=== PATIENT | female | born 1975 | race Caucasian/White ===

== ENCOUNTER → 2017-09-15 10:52 | Outpatient (CLI) | payer OTHER, SELFPAY ==
[2017-09-28 13:29] LABS: HPV Reflexed? NOT INDICATED
== END ==
PROVIDERS: Visit Provider Obstetrics & Gynecology
DX: Z12.4 Encounter for screening for malignant neoplasm of cervix (principal)
CPT/HCPCS: 88175; G0145

== ENCOUNTER 2018-02-13 19:56 | Emergency (ER) | payer OTHER, SELFPAY ==
[2018-02-13 19:58] VITALS: BP 155/91; PULSE 127; RESP 18; TEMP 36.6; O2SAT 95; BMI 26.6
--- NOTE | 2018-02-13 20:30 | RAD_ITS ---
STUDY: X-RAY - PELVIS AND RIGHT HIP REASON FOR EXAM: Female, 42 years old. Pain TECHNIQUE: Radiological exam, hip, unilateral, with pelvis when performed; 2 or 3 views. COMPARISON: None. FINDINGS: There is a non-specific bowel gas pattern. Normal visualized soft tissue structures. Normal bilateral iliac wings, sacroiliac joints and visualized sacrum. Normal bilateral superior and inferior pubic rami. Normal pubic symphysis. Normal bilateral ischial tuberosities. Normal visualized femoral head. Normal acetabulum. Normal hip joint. RAD/HIP, UNI W/ Pelvis 2-3 Views IMPRESSION: Normal x-ray examination of the pelvis and right hip. Electronically Signed: Jose Alfredo Navarro, at 20:59 EDT Tel , Service support ,
--- NOTE | 2018-02-13 21:12 | ED.VISSUMM ---
- ER Visit Summary Date of Service: 02/13/18 Chief Complaint: Right hip pain History of Present Illness: The patient is a 42 F who states for 2 weeks she has had pain in the right hip. Nothing is different about it today but she wanted to come to the emergency room for evaluation. She has not contacted her doctor about this. She states that she is an alcoholic therefore you must take care of me. She denies any fevers. No IV drug use. She denies any known trauma. No redness or rash over the hip. Physical Examination: Patient is afebrile her vital signs show tachycardia in triage at 127 however on my examination in the bed her heart rate is 82 Gen: Well-nourished well-developed Head: Normocephalic atraumatic Eyes: Perrl EOMI ENT: TMs clear no rhinorrhea moist mucous membranes Neck: Supple no lymphadenopathy no JVD nontender CVS: Regular rate rhythm no murmurs normal S1-S2 Respiratory: No distress clear to auscultation bilaterally chest nontender Abdomen: Soft nontender nondistended normal bowel sounds no masses Back: Nontender Extremity: Tender to palpation over the right greater trochanter. There is no rash or erythema. Negative logroll. She is able to flex and extend her hip. Skin: Normal color no rash no goosebumps/. Neuro: alert orientated ?3 CN II-XII intact normal strength sensation reflexes gait cerebellar Psych: Patient has an inappropriate affect laughing at times Test Results: X-rays of the hip and pelvis were negative for fracture Emergency Department Course and Treatment: Patient was given Toradol. We will start her on ibuprofen. I believe this is a bursitis. She is not improving with ice and anti-inflammatories and conservative treatment she will need to follow-up. She states that she would like to be admitted because she is an alcoholic and would like to be detoxed. She scored a 10 on the CIWA form. And that was for subjective findings. There are no physical exam findings of alcohol withdrawal at the current time. Patient was advised she should call [facility] tomorrow. Impression: 1. Right greater trochanteric bursitis 2. Alcoholism This note was generated with [employer] dictation software. It may contain incorrect words, spelling, and punctuation that were not noted in review of the chart prior to signing ED Disposition - Plan for ED Patient: Disposition: Home or Assisted Living Chief Complaint: Lower Extremity Injury Instructions: ED Bursitis Prescriptions: Ibuprofen [Motrin] 800 mg PO TID #20 tab Referrals: Lawrence Lorenzo MD [Primary Care Provider] - 1 Week if not improving
[2018-02-13] MEDS: Ketorolac 10 MG Tablet PO (21:17)
[2018-02-13 21:49] VITALS: BP 132/86; PULSE 88; RESP 16; O2SAT 98
== END 2018-02-13 21:53 | disposition home or self-care (01) ==
PROVIDERS: Emergency Provider Emergency Medicine; Family Provider Family Medicine; PCP Family Medicine
DX: M70.61 Trochanteric bursitis, right hip (principal); F10.20 Alcohol dependence, uncomplicated; Y90.9 Presence of alcohol in blood, level not specified; Z72.0 Tobacco use; F32.9 Major depressive disorder, single episode, unspecified
CPT/HCPCS: 73502; 99283

== ENCOUNTER → 2018-03-26 16:33 | Outpatient (CLI) | payer OTHER, SELFPAY ==
[2018-03-26 18:44] LABS: Progesterone Level 0.22 ng/mL (See Comment)
[2018-03-26 18:58] LABS: Pregnancy, Serum, hCG Quali. NEGATIVE Negative (0-9 Nonpreg)
--- OUTSIDE RECORDS SUMMARY | 2018-05-13 01:48 | XMS RPT_ITS ---
:1975 Author Organization OHIP Care Team Providers Name Role Phone Nancy Dotson Attending Unavailable Jose Pepper Attending Unavailable Lawrence Lorenzo Primary [facility] Unavailable Nancy Dotson Attending Unavailable RUBEN LORENZO) Attending Unavailable RUBEN LORENZO) Referring Unavailable RUBEN LORENZO) Referring Unavailable RUBEN LORENZO) Referring Unavailable TRUPTI, MEGHAN (KATHLEEN) Attending Unavailable RUBEN LORENZO) Referring Unavailable RUTTI, MEGHAN (KATHLEEN) Referring Unavailable RUTTI, MEGHAN (KATHLEEN) Referring Unavailable RUBEN LORENZO) Attending Unavailable TRUPTI, MEGHAN (KATHLEEN) Referring Unavailable PODLOGARTRINI) Attending Unavailable RUTTI, MEGHAN (ACID PUMPER) Referring Unavailable ANDRÉS, LAPMAN Attending Unavailable RUTTI, MEGHAN (ACID PUMPER) Referring Unavailable ANDRÉS, LAPMAN Referring Unavailable ANDRÉS, LAPMAN Referring Unavailable PODLOGTRINI HOUGH) Attending Unavailable RUBEN LORENZO) Referring Unavailable PODLOGTRINI HOUGH (KATHLEEN) Referring Unavailable KRISTIAN HILLMAN Attending Unavailable TRINI DOWNS) Referring Unavailable KRISTIAN HILLMAN Referring Unavailable RUBEN LORENZO) Attending Unavailable RUBEN LORENZO) Referring Unavailable RUBEN LORENZO) Referring Unavailable RUBEN LORENZO () Referring Unavailable PODLOGAR, TRINI (KATHLEEN) Referring Unavailable PODLOGAR, TRINI (KATHLEEN) Attending Unavailable RUBEN LORENZO () Referring Unavailable PODLOGAR, TRINI (KATHLEEN) Referring Unavailable KRISTIAN HILLMAN Referring Unavailable KRISTIAN HILLMAN Attending Unavailable KRISTIAN HILLMAN Referring Unavailable RUBEN LORENZO () Attending Unavailable RUBEN LORENZO) Referring Unavailable PODLOGAR, TRINI (KATHLEEN) Attending Unavailable RUBEN LORENZO) Referring Unavailable [place] Consulting Unavailable PROBLEMS PROBLEMS DATE TYPE CONDITION / CODE ATTENDING STATUS SOURCE 02/22/2018 Admitting Unknown / NA Active [facility] diagnosis UNK(Unknown) Hospital Repository 02/07/2018 Active Other abnormal and NA Active [facility] inconclusive [facility] Main findings on [place] diagnostic imaging Repository of breast / R92.8(ICD-10) 01/17/2018 Active Encounter for NA Active [place] screening [facility] Main mammogram for [place] malignant neoplasm Repository of breast / Z12.31(ICD-10) 01/02/2018 Active Unspecified NA Active [place] cirrhosis of liver Clinic Main / K74.60(ICD-10) [place] Repository 10/09/2017 Active Alcohol JENNIFER BOWEN Active [place] dependence, in Clinic Main remission / [place] F10.21(ICD-10) Repository 10/09/2017 Active Hepatomegaly with TOI BOWENMAN Active [place] splenomegaly, not Clinic Main elsewhere [place] classified / Repository R16.2(ICD-10) 11/17/2017 Active Alcoholic JENNIFER BOWEN Active [place] cirrhosis of liver Clinic Main without ascites / [place] K70.30(ICD-10) Repository 07/05/2017 Active Other pancytopenia NA Active [facility] / D61.818(ICD-10) Clinic Main [place] Repository 09/21/2017 Active Thrombocytopenia, NA Active [facility] unspecified / Clinic Main D69.6(ICD-10) [place] Repository 09/21/2017 Active Anemia, NA Active [facility] unspecified / Clinic Main D64.9(ICD-10) [place] Repository 09/15/2017 Unknown Z12.4 - Encounter Nancy Dotson Active [place] for screening for [facility] neoplasm [facility] of cervix / Repository Z12.4(ICD-10) 07/04/2017 Active Epistaxis / NA Active [facility] R04.0(ICD-10) Clinic Main [place] Repository 06/05/2017 Active Disorder of urea NA Active [place] cycle metabolism, [facility] Main unspecified / [place] E72.20(ICD-10) Repository 06/05/2017 Active Type 2 diabetes NA Active [place] mellitus without Clinic Main complications / [place] E11.9(ICD-10) Repository 06/05/2017 Active Other specified NA Active [place] abnormal findings Clinic Main of blood chemistry [place] / R79.89(ICD-10) Repository 06/05/2017 Active Unknown / [facility], Active [place] UNK(Unknown) RUBEN Drake [facility] Main () [place] Repository PROCEDURES PROCEDURES No Procedure Records FoundRESULTS RESULTS PROGRESS Observed: 05/03/2018 Status: COMPLETED Source: [place] 9:12 AM [facility] REPOSITORY HNO ID: [id number] Author: Trini (Kathleen) Podlogar Service: (none) Author Type: Nurse Practitioner Type: Progress Notes Filed: 05/03/2018 9:50 AM Note Text: 05/03/2018 Patient presents with: 2 week follow up: right hip pain SUBJECTIVE: This is a 42 year old that is here today for Above Complaints. ONSET: LOCATION:right hip DURATION: constant CHARACTERISTICS: sharp pain AGGRAVATING FEATURES: By sleeping on in, putting on shoes and taking shoes off, crossing legs ALLEVIATING FEATURES: ice and heat RADIATION: none TIMING: worse as the day goes on Reports went to [place] in ER in January for this and they performed X-ray. Denies fevers, chills, swelling, redness, warmth, TTP to joints, other painful joints, Numbness, tingling, weakness in extremity, back pain, or difficulty urinating. Reviewed X-ray from [facility] dated 02/13/2018. Results below: Normal x-ray examination of the pelvis and right hip. PAST MEDICAL HISTORY Diagnosis Date - Abnormal Pap smear of cervix 2011 - Alcoholism in remission (HCC) 02/23/2018 - Anxiety - Cirrhosis of liver (HCC) Dr. Hillman - Diabetes mellitus, type II (HCC) - Elevated LFTs - Esophageal varices (HCC) - Gallstones - GERD (gastroesophageal reflux disease) - Gestational diabetes mellitus - Hepatic steatosis - Hepatosplenomegaly - Hyperammonemia (HCC) - Insomnia - Pancytopenia (HCC) 07/05/2017 Dr. Bowen - Recurrent genital herpes simplex type 1 infection diagnosed in 2013 - Thrombocytopenia (HCC) ALLERGIES Patient has no known allergies. MEDICATIONS Current Outpatient Prescriptions: lactulose (DUPHALAC, CONSTULOSE) 10 gram/15 mL solution Take 15 mL by mouth twice daily. hydrOXYzine pamoate (VISTARIL) 50 mg capsule Take 1 capsule by mouth three times daily as needed. traZODone (DESYREL) 50 mg tablet Take 1 tablet by mouth daily at bedtime. glimepiride (AMARYL) 1 mg tablet Take 1 tablet by mouth daily with breakfast. metFORMIN (GLUCOPHAGE) 500 mg tablet Take 2 tablets by mouth twice daily with meals. ranitidine (ZANTAC) 150 mg tablet Take 150 mg by mouth once daily. sodium chloride (SALINE MIST) 0.65 % nasal spray Use 1 [place] in the nose as needed. spironolactone (ALDACTONE) 50 mg tablet Take 50 mg by mouth twice daily. Melatonin 5 mg cap Take 1 capsule by mouth as needed. ondansetron orally disintegrating (ZOFRAN ODT) 4 mg disintegrating tablet Take 1 tablet by mouth every 6 hours as needed for Nausea/Vomiting. ferrous sulfate 325 mg (65 mg iron) tablet Take 1 tablet by mouth twice daily with meals. thiamine (VITAMIN B1) 100 mg tablet Take 1 tablet by mouth once daily. folic acid 1 mg tablet Take 1 tablet by mouth once daily. docusate sodium (COLACE) 100 mg capsule Take 1 capsule by mouth twice daily as needed for Constipation. sertraline (ZOLOFT) 100 mg tablet Take 1 tablet by mouth once daily. Vitamin with 29 mg Iron ( PLUS) 29 mg iron- 1 mg Take 1 tablet by mouth once daily. SUMAtriptan (IMITREX) 100 mg tablet Take 100 mg by mouth as needed. Omeprazole 40 mg capsule Take 1 capsule by mouth once daily. ibuprofen (MOTRIN) 800 mg tablet Take 800 mg by mouth every 6 hours as needed. No current facility-administered medications for this visit. Medications and allergies reviewed by this provider. SOCIAL HISTORY Social History Marital status: Spouse name: Years of education: Number of children: 2 Social History Main Topics Smoking status: Former Smoker Packs/day: 0.50 Years: 24.00 Types: Cigarettes Quit date: 05/06/2017 Smokeless tobacco: Never Used Alcohol use: No Comment: Recovering alcoholic Drug use: No Sexual activity: Yes control/protection: Injection REVIEW OF SYSTEMS All other reviewed and negative other than HPI. OBJECTIVE: BP 110/78 Pulse 88 Temp 36.2 ?C (97.1 ?F) (Tympanic) Resp 20 Wt 78.5 kg (173 lb) BMI 27.71 kg/m? . Vital signs reviewed by this provider. APPEARANCE Well appearing, alert, in no acute distress, well-hydrated, well nourished. EXTREMITIES Extremities normal, No deformities, No skin discoloration, No edema and Normal pulses bilaterally. SKIN Skin color, texture, turgor normal, no suspicious rashes or lesions Back: straight and symmetric, SI joint tenderness on right or left, Full ROM, LE ext reflexes are 2+ and symmetric Bilateral hip: without swelling, redness, loss of ROM, stiffness, injury and numbness. No TTP or warmth ROM- Range of Motion , pain with internal rotation,Gait- normal Impingement test negative. Lumbar spine: Extension: WNL Right sideglide: WNL Left sideglide: WNL Rotation: WNL Neuro: Awake, alert and oriented x 3, Reflexes symmetrical, Normal gait and No involuntary motions. ASSESSMENT/PLAN: 1. Right hip pain - ICD9: 719.45, ICD10: M25.551 - no red flag exam findings - red flag symptoms discussed, verbalizes understanding - offered PT, declines - handout on hip stretches provided - encouraged the use of heat and ice for 15 minutes at a time and to avoid sleeping on heating pad, verbalizes understanding - discussed naproxen usage for as needed bases, take with food- discussed bleeding risks with taking NSAIDS and the need to continue to avoid alcohol and other NSAID medications, verbalizes understanding - NAPROXEN 500 MG TABLET - follow-up if pain persists or worsens- recommend PT at that time- to ER with red flag symptoms Trini Podlogradha, INTERIOR DESIGN COORDINATOR.ACID PUMPER Prescription instructions reviewed with patient as applicable. Patient advised if symptoms do not improve or if symptoms worsen sooner, to contact their primary care physician. Potential red flag symptoms discussed with the patient. Reviewed appropriate action plan to take if red flag symptoms occur. Patient agreeable to treatment plan. CNOV Observed: 05/03/2018 Status: COMPLETED Source: [place] 9:00 AM [facility] REPOSITORY [facility] POLO ALVES ([id number]) 1975 F Date Time Provider Department 05/03/18 9:00 AM TRINI DOWNS (KATHLEEN) JOSHUA During your visit today, we recorded the following information about you: Temperature Pulse Respiration Blood pressure 97.1 degrees 88/minute 20/minute 110/78 Weight 78.5 kg Trini Downs APRN.KATHLEEN 05/03/2018 9:50 AM Signed 05/03/2018 Patient presents with: 2 week follow up: right hip pain SUBJECTIVE: This is a 42 year old that is here today for Above Complaints. ONSET: LOCATION:right hip DURATION: constant CHARACTERISTICS: sharp pain AGGRAVATING FEATURES: By sleeping on in, putting on shoes and taking shoes off, crossing legs ALLEVIATING FEATURES: ice and heat RADIATION: none TIMING: worse as the day goes on Reports went to [place] in ER in January for this and they performed X-ray. Denies fevers, chills, swelling, redness, warmth, TTP to joints, other painful joints, Numbness, tingling, weakness in extremity, back pain, or difficulty urinating. Reviewed X-ray from [facility] dated 02/13/2018. Results below: Normal x-ray examination of the pelvis and right hip. PAST MEDICAL HISTORY Diagnosis Date - Abnormal Pap smear of cervix 2011 - Alcoholism in remission (HCC) 02/23/2018 - Anxiety - Cirrhosis of liver (HCC) Dr. Hillman - Diabetes mellitus, type II (HCC) - Elevated LFTs - Esophageal varices (HCC) - Gallstones - GERD (gastroesophageal reflux disease) - Gestational diabetes mellitus - Hepatic steatosis - Hepatosplenomegaly - Hyperammonemia (HCC) - Insomnia - Pancytopenia (HCC) 07/05/2017 Dr. Bowen - Recurrent genital herpes simplex type 1 infection diagnosed in 2012 - Thrombocytopenia (HCC) ALLERGIES Patient has no known allergies. MEDICATIONS Current Outpatient Prescriptions: lactulose (DUPHALAC, CONSTULOSE) 10 gram/15 mL solution Take 15 mL by mouth twice daily. hydrOXYzine pamoate (VISTARIL) 50 mg capsule Take 1 capsule by mouth three times daily as needed. traZODone (DESYREL) 50 mg tablet Take 1 tablet by mouth daily at bedtime. glimepiride (AMARYL) 1 mg tablet Take 1 tablet by mouth daily with breakfast. metFORMIN (GLUCOPHAGE) 500 mg tablet Take 2 tablets by mouth twice daily with meals. ranitidine (ZANTAC) 150 mg tablet Take 150 mg by mouth once daily. sodium chloride (SALINE MIST) 0.65 % nasal spray Use 1 [place] in the nose as needed. spironolactone (ALDACTONE) 50 mg tablet Take 50 mg by mouth twice daily. Melatonin 5 mg cap Take 1 capsule by mouth as needed. ondansetron orally disintegrating (ZOFRAN ODT) 4 mg disintegrating tablet Take 1 tablet by mouth every 6 hours as needed for Nausea/Vomiting. ferrous sulfate 325 mg (65 mg iron) tablet Take 1 tablet by mouth twice daily with meals. thiamine (VITAMIN B1) 100 mg tablet Take 1 tablet by mouth once daily. folic acid 1 mg tablet Take 1 tablet by mouth once daily. docusate sodium (COLACE) 100 mg capsule Take 1 capsule by mouth twice daily as needed for Constipation. sertraline (ZOLOFT) 100 mg tablet Take 1 tablet by mouth once daily. Vitamin with 29 mg Iron ( PLUS) 29 mg iron- 1 mg Take 1 tablet by mouth once daily. SUMAtriptan (IMITREX) 100 mg tablet Take 100 mg by mouth as needed. Omeprazole 40 mg capsule Take 1 capsule by mouth once daily. ibuprofen (MOTRIN) 800 mg tablet Take 800 mg by mouth every 6 hours as needed. No current facility-administered medications for this visit. Medications and allergies reviewed by this provider. SOCIAL HISTORY Social History Marital status: Spouse name: Years of education: Number of children: 2 Social History Main Topics Smoking status: Former Smoker Packs/day: 0.50 Years: 24.00 Types: Cigarettes Quit date: 05/06/2017 Smokeless tobacco: Never Used Alcohol use: No Comment: Recovering alcoholic Drug use: No Sexual activity: Yes control/protection: Injection REVIEW OF SYSTEMS All other reviewed and negative other than HPI. OBJECTIVE: BP 110/78 Pulse 88 Temp 36.2 ?C (97.1 ?F) (Tympanic) Resp 20 Wt 78.5 kg (173 lb) BMI 27.71 kg/m? . Vital signs reviewed by this provider. APPEARANCE Well appearing, alert, in no acute distress, well- hydrated, well nourished. EXTREMITIES Extremities normal, No deformities, No skin discoloration, No edema and Normal pulses bilaterally. SKIN Skin color, texture, turgor normal, no suspicious rashes or lesions Back: straight and symmetric, SI joint tenderness on right or left, Full ROM, LE ext reflexes are 2+ and symmetric Bilateral hip: without swelling, redness, loss of ROM, stiffness, injury and numbness. No TTP or warmth ROM- Range of Motion , pain with internal rotation,Gait- normal Impingement test negative. Lumbar spine: Extension: WNL Right sideglide: WNL Left sideglide: WNL Rotation: WNL Neuro: Awake, alert and oriented x 3, Reflexes symmetrical, Normal gait and No involuntary motions. ASSESSMENT/PLAN: 1. Right hip pain - ICD9: 719.45, ICD10: M25.551 - no red flag exam findings - red flag symptoms discussed, verbalizes understanding - offered PT, declines - handout on hip stretches provided - encouraged the use of heat and ice for 15 minutes at a time and to avoid sleeping on heating pad, verbalizes understanding - discussed naproxen usage for as needed bases, take with food- discussed bleeding risks with taking NSAIDS and the need to continue to avoid alcohol and other NSAID medications, verbalizes understanding - NAPROXEN 500 MG TABLET - follow-up if pain persists or worsens- recommend PT at that time- to ER with red flag symptoms Trini Podlogar, INTERIOR DESIGN COORDINATOR.[facility] Prescription instructions reviewed with patient as applicable. Patient advised if symptoms do not improve or if symptoms worsen sooner, to contact their primary care physician. Potential red flag symptoms discussed with the patient. Reviewed appropriate action plan to take if red flag symptoms occur. Patient agreeable to treatment plan. Referring Provider: RUBEN LORENZO) [[id number]] Allergies As of Date: 05/03/2018 (No Known Allergies) Date Reviewed: 05/03/2018 Reviewed by: Trini Kyle) Podlogar - Fully Assessed Reason for Visit: 2 week follow up [Other] Cmt: right hip pain Primary Visit Diagnosis:Right hip pain [M25.551] Order(s):naproxen (NAPROSYN) 500 mg tabletTake 1 tablet by mouth twice daily as needed for Pain (pain/inflammation, take with food.).Disp: 60 tabletRfl: 1 Prescriptions as of 05/03/2018 Sig: LACTULOSE 10 GRAM/15 ML ORAL * Take 15 mL by mouth twice clifford* HYDROXYZINE PAMOATE 50 MG CAP* Take 1 capsule by mouth three* TRAZODONE 50 MG TABLET Take 1 tablet by mouth daily * GLIMEPIRIDE 1 MG TABLET Take 1 tablet by mouth daily * METFORMIN 500 MG TABLET Take 2 tablets by mouth twice* RANITIDINE 150 MG TABLET Take 150 mg by mouth once clifford* SODIUM CHLORIDE 0.65 % NASAL * Use 1 [place] in the nose as ne* SPIRONOLACTONE 50 MG TABLET Take 50 mg by mouth twice clifford* MELATONIN 5 MG CAPSULE Take 1 capsule by mouth as ne* ONDANSETRON 4 MG DISINTEGRATI* Take 1 tablet by mouth every * FERROUS SULFATE 325 MG (65 MG* Take 1 tablet by mouth twice * THIAMINE HCL (VITAMIN B1) 100* Take 1 tablet by mouth once d* FOLIC ACID 1 MG TABLET Take 1 tablet by mouth once d* DOCUSATE SODIUM 100 MG CAPSULE Take 1 capsule by mouth twice* SERTRALINE 100 MG TABLET Take 1 tablet by mouth once d* VITAMINS WITH CALCIU* Take 1 tablet by mouth once d* SUMATRIPTAN 100 MG TABLET Take 100 mg by mouth as neede* OMEPRAZOLE 40 MG CAPSULE,MARIBEL* Take 1 capsule by mouth once * NAPROXEN 500 MG TABLET Take 1 tablet by mouth twice * Problem List As Of Date 05/03/2018 Noted Resolved Hyperammonemia (HCC) [E72.20] Diabetes mellitus, type II (HCC) [E11.9] Prediabetes [R73.03] 06/08/2017 Pancytopenia (HCC) [D61.818] INVALID FOR* Anxiety [F41.9] GERD (gastroesophageal reflux disease) [K21.9] Hepatosplenomegaly [R16.2] Alcoholism in remission (HCC) [F10.21] Cirrhosis of liver without ascites (HCC) [K74.6*INVALID FOR* Cirrhosis of liver (HCC) [K74.60] More... Prescriptions ordered this encounter Disp Refills Start End NAPROXEN 500 MG TABLET 60 t* 1 05/03/2018 Route: ORAL Sig: Take 1 tablet by mouth twice daily as needed for Pain (pain/inflammation, take with food.). Medications Discontinued During This Encounter ibuprofen (MOTRIN) 800 mg tablet 05/03/2018 Class: Historical Med Route: ORAL Sig: Take 800 mg by mouth every 6 hours as needed. Disc: Course of therapy completed Encounter Status:Closed by ASHLYLOGTRINI HOUGH CNP on 05/03/18 PROGRESS Observed: 04/19/2018 Status: COMPLETED Source: [place] 9:35 AM [facility] REPOSITORY O ID: [id number] Author: Ruben Man) Bj Service: (none) Author Type: Physician Type: Progress Notes Filed: 04/19/2018 11:18 AM Note Text: Chief Complaint Patient presents with: F/U 3 Month HPI Polo Alves is a 42 year old female who presents here today for routine follow up. Patient followed up with TAPPING MACHINE OPERATOR AUTOMATIC Trini Downs last month after she had been discharged from rehab at [facility] and has been sober since 02/23. Has been following up with [facility] weekly and AA with sponsor 4 sessions weekly which is helping to keep her sober. Taking thiamine and folate as prescribed. States her trigger for drinking this most recent time was her working long hours and started to get the feeling that she had been doing so well that she could have one drink and be OK. Feels different after rehab this time. Understands she cannot have any alcohol now. DIABETES MELLITUS: Ms. Alves was last seen 1 month ago. Since our last visit she denies excessive thirst or increased frequency of urination, numbness, tingling or pain in extremities, new or unusual visual symptoms and low sugar/hypoglycemic reactions. Follows a diabetic diet most of the time. She is compliant with medication(s) and is tolerating med(s) without any side effects. She reports checking her glucose on a infrequent to not at all basis. Patient's last HgA1C was Hemoglobin A1C (%) Date Value 03/21/2018 7.5 09/21/2017 6.3 ) Last Ophthalmology exam was within the past 6 months-Dr. Tam Last Podiatry exam was within the past 12 months Cirrhosis: patient following up with GI Dr. Hillman. Recently underwent fibroscan which was inconclusive and EGD for varices. Did not require banding of grade 1 esophageal varices on EGD. Anxiety: Symptoms controlled most of the time on current dosage of Zoloft. Still getting some excessive worrying, racing thoughts, irritability about every other day. Denies panic symptoms or suicidal ideation. Has only been back on current regimen about 4 weeks as meds were discontinued in rehab. Discussed continuing for at least another month before making changes to regimen. Past medical history, appointments, medications, allergies reviewed. 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) 02/23/2018 - Anxiety - Diabetes mellitus, type II (HCC) - Elevated LFTs - Gallstones - GERD (gastroesophageal reflux disease) - Gestational diabetes mellitus - Hepatic steatosis - Hepatosplenomegaly - Hyperammonemia (HCC) - Insomnia - Pancytopenia (HCC) 07/05/2017 Dr. Bowen - Recurrent genital herpes simplex type 1 infection diagnosed in 2012 - Thrombocytopenia (HCC) Previous Surgical History PAST SURGICAL HISTORY Procedure Laterality Date - ANESTH, SECTION 01/22/2010 - SECTION HX 05/07/2013 - LEEP PROCEDURE ([employer])_*FL 2011 - PAST SURGICAL HISTORY OF 2017 nasal vessel cauterization-Dr. Chappell Family History FAMILY HISTORY Problem Relation Age of Onset - other (dementia) Mother 50 - GI Father 35 Chron's - Alcohol/Drug Maternal Grandmother - Breast Cancer Maternal Grandmother 60 - Alzheimer's Disease Maternal Grandmother may not have been alzheimer's, but dementia - Alcohol/Drug Maternal Grandfather - Diabetes Paternal Grandmother - Heart Paternal Grandmother - Alcohol/Drug Paternal Grandfather - Alcohol/Drug Sister Patient Allergies ALLERGIES No Known Allergies Current Medications Current Outpatient Prescriptions on File Prior to Visit: metFORMIN (GLUCOPHAGE) 500 mg tablet Take 2 tablets by mouth twice daily with meals. ranitidine (ZANTAC) 150 mg tablet Take 150 mg by mouth once daily. sodium chloride (SALINE MIST) 0.65 % nasal spray Use 1 [place] in the nose as needed. spironolactone (ALDACTONE) 50 mg tablet Take 50 mg by mouth twice daily. Melatonin 5 mg cap Take 1 capsule by mouth as needed. ondansetron orally disintegrating (ZOFRAN ODT) 4 mg disintegrating tablet Take 1 tablet by mouth every 6 hours as needed for Nausea/Vomiting. ferrous sulfate 325 mg (65 mg iron) tablet Take 1 tablet by mouth twice daily with meals. thiamine (VITAMIN B1) 100 mg tablet Take 1 tablet by mouth once daily. folic acid 1 mg tablet Take 1 tablet by mouth once daily. docusate sodium (COLACE) 100 mg capsule Take 1 capsule by mouth twice daily as needed for Constipation. sertraline (ZOLOFT) 100 mg tablet Take 1 tablet by mouth once daily. Vitamin with 29 mg Iron ( PLUS) 29 mg iron- 1 mg Take 1 tablet by mouth once daily. lactulose (DUPHALAC, CONSTULOSE) 10 gram/15 mL solution Take 15 mL by mouth twice daily. SUMAtriptan (IMITREX) 100 mg tablet Take 100 mg by mouth as needed. hydrOXYzine pamoate (VISTARIL) 50 mg capsule Take 1 capsule by mouth three times daily as needed. Omeprazole 40 mg capsule Take 1 capsule by mouth once daily. traZODone (DESYREL) 50 mg tablet Take 1 tablet by mouth daily at bedtime. ibuprofen (MOTRIN) 800 mg tablet Take 800 mg by mouth every 6 hours as needed. No current facility-administered medications on file prior to visit. Social History Social History Marital status: Spouse name: Years of education: Number of children: 2 Social History Main Topics Smoking status: Former Smoker Packs/day: 0.50 Years: 24.00 Types: Cigarettes Quit date: 05/06/2017 Smokeless tobacco: Never Used Alcohol use: No Comment: Recovering alcoholic Drug use: No Sexual activity: Yes control/protection: Injection Review of Symptoms REVIEW OF SYSTEMS GENERAL: No weight loss, malaise or fevers RESPIRATORY: Negative for cough, hemoptysis, wheezing, COPD, dyspnea or shortness of breath CARDIOVASCULAR: Negative for chest pain, leg swelling, hypertension, CHF or palpitations GI: No nausea, vomiting, or diarrhea SKIN: Negative for lesions, rash, and itching EXAM: BP 114/86 Pulse 96 Resp 16 Wt 78 kg (172 lb) BMI 27.55 kg/m? General Appearance: Well appearing, alert, in no acute distress, well-hydrated, well nourished.. Skin: Skin color, texture, turgor normal, no suspicious rashes or lesions. Lungs: lungs clear to auscultation. No wheezing, rhonchi, rales. Heart: RRR without murmur, gallop, or rubs. No ectopy. Abdomen: Abdomen soft, non-tender. Bowel sounds normal. Hepatomegaly. Extremities: No deformities, edema, skin discoloration, clubbing or cyanosis. Good capillary refill. . Health Maintenance List DILATED RETINAL EXAM due on 12/05/1987 TWO PNEUMOVAX 5 YEARS APART PRIOR TO AGE 65(1) due on 1996 PAP EVERY 5 YEARS due on 12/05/2007 HPV EVERY 5 YEARS due on 12/05/2007 DTAP,TDAP,TD(1 - Tdap) due on 03/22/2018 DIABETES MED ADHERENCE due on 05/18/2018 DIABETIC FOOT EXAM due on 07/04/2018 HBA1C due on 09/19/2018 URINE ALBUMIN:CREATININE RATIO due on 09/21/2018 LDL CHOLESTEROL due on 09/21/2018 MAMMOGRAM due on 01/17/2019 ANNUAL PCP TEAM CHRONIC DISEASE VISIT due on 03/21/2019 ADULT PREVNAR-13 Completed INFLUENZA Completed Data reviewed Component Latest Ref Rng AND Units 12/19/2017 02/22/2018 02/23/2018 03/21/2018 WBC 3.70 - 11.00 k/uL 4.16 5.30 RBC 3.90 - 5.20 m/uL 4.47 4.57 Hemoglobin 11.5 - 15.5 g/dL 12.0 12.9 Hematocrit 36.0 - 46.0 % 38.1 40.2 MCV 80.0 - 100.0 fL 85.2 88.0 MCH 26.0 - 34.0 pG 26.8 28.2 MCHC 30.5 - 36.0 g/dL 31.5 32.1 RDW-CV 11.5 - 15.0 % 17.2 (H) 15.5 (H) Platelet Count 150 - 400 k/uL 88 (L) 99 (L) MPV 9.0 - 12.7 fL 11.5 10.7 Neut% % 54.3 59.7 Abs Neut (ANC) 1.45 - 7.50 k/uL 2.25 3.15 Lymph% % 32.2 27.2 Abs Lymph 1.00 - 4.00 k/uL 1.34 1.44 [place]% % 8.4 7.9 Abs [place] <0.87 k/uL 0.35 0.42 Eosin% % 4.6 4.3 Abs Eosin <0.46 k/uL 0.19 0.23 Baso% % 0.5 0.9 Abs Baso <0.11 k/uL <0.03 0.05 Nucleated Reds 0 /100 WBC 0.0 0.0 Absolute nRBC <0.01 k/uL <0.01 <0.01 Diff Type Auto Diff Auto Diff Protein, Total 6.3 - 8.0 g/dL 7.4 7.9 Albumin 3.9 - 4.9 g/dL 4.1 4.3 Calcium 8.5 - 10.2 mg/dL 9.6 8.2 (L) 10.2 Bilirubin, Total 0.2 - 1.3 mg/dL 0.9 1.2 Alkaline Phosphatase 34 - 123 U/L 117 114 AST 13 - 35 U/L 33 53 (H) Glucose 74 - 99 mg/dL 121 (H) 118 (H) 176 (H) BUN 7 - 21 mg/dL 10 5 (L) 11 Creatinine 0.58 - 0.96 mg/dL 0.61 0.39 (L) 0.67 Sodium 136 - 144 mmol/L 141 147 (H) 140 Potassium 3.7 - 5.1 mmol/L 4.1 3.2 (L) 4.5 Chloride 97 - 105 mmol/L 106 (H) 106 101 CO2 22 - 30 mmol/L 22 25 25 Anion Gap 9 - 18 mmol/L 13 19.2 14 ALT 7 - 38 U/L 29 44 (H) eGFR- >60 > 60 ml/min/1.73m2 >60 eGFR-All Other Races . >60 > 60 ml/Min/1.73m2 >60 Hemoglobin A1C 4.3 - 5.6 % 7.5 (H) Estimated Average Glucose mg/dL 169 Ammonia 11 - 51 umol/L 32 47 Alcohol, Serum 0 - 0.01 g/dL 0.58 (H) 0.36 (H) ASSESSMENT/PLAN: 1. Type 2 diabetes mellitus without complication, without long-term current use of insulin (HCC) - ICD9: 250.00, ICD10: E11.9 (primary diagnosis) worsening control - Add glimepiride (Amaryl) - Blood glucose monitoring on a once a day schedule - Encouraged regular aerobic exercise and weight loss - Follow up in 3 months, sooner should any other issues arise. - Discussed diabetic education issues of computer terminal operator diabetic complications, hypoglycemic symptoms, hyperglycemic symptoms, diet, medications- side effects and need for compliance and importance of exercise with patient. - GLIMEPIRIDE 1 MG TABLET 2. Hyperammonemia (HCC) - ICD9: 270.6, ICD10: E72.20 Normal on last check. Continue lactulose - LACTULOSE 10 GRAM/15 ML ORAL SOLUTION 3. Alcoholism in remission (HCC) - ICD9: 303.93, ICD10: F10.21 In remission from February. Continue thiamine and folate, discussed importance of taking medications as prescribed to prevent encephalopathy. 4. Cirrhosis of liver without ascites, unspecified hepatic cirrhosis type (HCC) - ICD9: 571.5, ICD10: K74.60 F/u recommendations from Dr. Hillman's office. Continue abstinence from alcohol. 5. Anxiety - ICD9: 300.00, ICD10: F41.9 Uncontrolled. Continue zoloft as prescribed for additional 4 weeks before adjusting dosage. - HYDROXYZINE PAMOATE 50 MG CAPSULE 6. Hepatosplenomegaly - ICD9: 571.8, ICD10: R16.2 05/19 #4. F/u with hepatology. Continue abstinence from alcohol. Ruben Lorenzo MD CNOV Observed: 04/19/2018 Status: COMPLETED Source: [place] 9:20 AM [facility] POLO ALVES ([id number]) 1975 F Date Time Provider Department 04/19/18 9:20 AM RUBEN LORENZO) FAMPWS During your visit today, we recorded the following information about you: Pulse Respiration Blood pressure Weight 96/minute 16/minute 114/86 78 kg Ruben Lorenzo MD 04/19/2018 11:18 AM Signed Chief Complaint Patient presents with: F/U 3 Month HPI Polo Alves is a 42 year old female who presents here today for routine follow up. 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 Has been following up with [facility] La [facility] weekly and AA with sponsor 4 sessions weekly which is helping to keep her sober. Taking thiamine and folate as prescribed. States her trigger for drinking this most recent time was her working long hours and started to get the feeling that she had been doing so well that she could have one drink and be OK. Feels different after rehab this time. Understands she cannot have any alcohol now. DIABETES MELLITUS: Ms. Alves was last seen 1 month ago. Since our last visit she denies excessive thirst or increased frequency of urination, numbness, tingling or pain in extremities, new or unusual visual symptoms and low sugar/hypoglycemic reactions. Follows a diabetic diet most of the time. She is compliant with medication(s) and is tolerating med(s) without any side effects. She reports checking her glucose on a infrequent to not at all basis. Patient's last HgA1C was Hemoglobin A1C (%) Date Value 03/21/2018 7.5 09/21/2017 6.3 ) Last Ophthalmology exam was within the past 6 months-Dr. Tam Last Podiatry exam was within the past 12 months Cirrhosis: patient following up with GI Dr. Hillman. Recently underwent fibroscan which was inconclusive and EGD for varices. Did not require banding of grade 1 esophageal varices on EGD. Anxiety: Symptoms controlled most of the time on current dosage of Zoloft. Still getting some excessive worrying, racing thoughts, irritability about every other day. Denies panic symptoms or suicidal ideation. Has only been back on current regimen about 4 weeks as meds were discontinued in rehab. Discussed continuing for at least another month before making changes to regimen. Past medical history, appointments, medications, allergies reviewed. 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) 02/23/2018 - Anxiety - Diabetes mellitus, type II (HCC) - Elevated LFTs - Gallstones - GERD (gastroesophageal reflux disease) - Gestational diabetes mellitus - Hepatic steatosis - Hepatosplenomegaly - Hyperammonemia (HCC) - Insomnia - Pancytopenia (HCC) 07/05/2017 Dr. Bowen - Recurrent genital herpes simplex type 1 infection diagnosed in 2013 - Thrombocytopenia (HCC) Previous Surgical History PAST SURGICAL HISTORY Procedure Laterality Date - ANESTH, SECTION 01/22/2010 - SECTION HX 05/07/2013 - LEEP PROCEDURE ([employer] [facility])_*FL 2011 - PAST SURGICAL HISTORY OF 2017 nasal vessel cauterization-Dr. Chappell Family History FAMILY HISTORY Problem Relation Age of Onset - other (dementia) Mother 50 - GI Father 35 Chron's - Alcohol/Drug Maternal Grandmother - Breast Cancer Maternal Grandmother 60 - Alzheimer's Disease Maternal Grandmother may not have been alzheimer's, but dementia - Alcohol/Drug Maternal Grandfather - Diabetes Paternal Grandmother - Heart Paternal Grandmother - Alcohol/Drug Paternal Grandfather - Alcohol/Drug Sister Patient Allergies ALLERGIES No Known Allergies Current Medications Current Outpatient Prescriptions on File Prior to Visit: metFORMIN (GLUCOPHAGE) 500 mg tablet Take 2 tablets by mouth twice daily with meals. ranitidine (ZANTAC) 150 mg tablet Take 150 mg by mouth once daily. sodium chloride (SALINE MIST) 0.65 % nasal spray Use 1 [place] in the nose as needed. spironolactone (ALDACTONE) 50 mg tablet Take 50 mg by mouth twice daily. Melatonin 5 mg cap Take 1 capsule by mouth as needed. ondansetron orally disintegrating (ZOFRAN ODT) 4 mg disintegrating tablet Take 1 tablet by mouth every 6 hours as needed for Nausea/Vomiting. ferrous sulfate 325 mg (65 mg iron) tablet Take 1 tablet by mouth twice daily with meals. thiamine (VITAMIN B1) 100 mg tablet Take 1 tablet by mouth once daily. folic acid 1 mg tablet Take 1 tablet by mouth once daily. docusate sodium (COLACE) 100 mg capsule Take 1 capsule by mouth twice daily as needed for Constipation. sertraline (ZOLOFT) 100 mg tablet Take 1 tablet by mouth once daily. Vitamin with 29 mg Iron ( PLUS) 29 mg iron- 1 mg Take 1 tablet by mouth once daily. lactulose (DUPHALAC, CONSTULOSE) 10 gram/15 mL solution Take 15 mL by mouth twice daily. SUMAtriptan (IMITREX) 100 mg tablet Take 100 mg by mouth as needed. hydrOXYzine pamoate (VISTARIL) 50 mg capsule Take 1 capsule by mouth three times daily as needed. Omeprazole 40 mg capsule Take 1 capsule by mouth once daily. traZODone (DESYREL) 50 mg tablet Take 1 tablet by mouth daily at bedtime. ibuprofen (MOTRIN) 800 mg tablet Take 800 mg by mouth every 6 hours as needed. No current facility-administered medications on file prior to visit. Social History Social History Marital status: Spouse name: Years of education: Number of children: 2 Social History Main Topics Smoking status: Former Smoker Packs/day: 0.50 Years: 24.00 Types: Cigarettes Quit date: 05/06/2017 Smokeless tobacco: Never Used Alcohol use: No Comment: Recovering alcoholic Drug use: No Sexual activity: Yes control/protection: Injection Review of Symptoms REVIEW OF SYSTEMS GENERAL: No weight loss, malaise or fevers RESPIRATORY: Negative for cough, hemoptysis, wheezing, COPD, dyspnea or shortness of breath CARDIOVASCULAR: Negative for chest pain, leg swelling, hypertension, CHF or palpitations GI: No nausea, vomiting, or diarrhea SKIN: Negative for lesions, rash, and itching EXAM: BP 114/86 Pulse 96 Resp 16 Wt 78 kg (172 lb) BMI 27.55 kg/m? General Appearance: Well appearing, alert, in no acute distress, well-hydrated, well nourished.. Skin: Skin color, texture, turgor normal, no suspicious rashes or lesions. Lungs: lungs clear to auscultation. No wheezing, rhonchi, rales. Heart: RRR without murmur, gallop, or rubs. No ectopy. Abdomen: Abdomen soft, non-tender. Bowel sounds normal. Hepatomegaly. Extremities: No deformities, edema, skin discoloration, clubbing or cyanosis. Good capillary refill. . Health Maintenance List DILATED RETINAL EXAM due on 12/05/1987 TWO PNEUMOVAX 5 YEARS APART PRIOR TO AGE 65(1) due on 1996 PAP EVERY 5 YEARS due on 12/05/2007 HPV EVERY 5 YEARS due on 12/05/2007 DTAP,TDAP,TD(1 - Tdap) due on 03/22/2018 DIABETES MED ADHERENCE due on 05/18/2018 DIABETIC FOOT EXAM due on 07/04/2018 HBA1C due on 09/19/2018 URINE ALBUMIN:CREATININE RATIO due on 09/21/2018 LDL CHOLESTEROL due on 09/21/2018 MAMMOGRAM due on 01/17/2019 ANNUAL PCP TEAM CHRONIC DISEASE VISIT due on 03/21/2019 ADULT PREVNAR-13 Completed INFLUENZA Completed Data reviewed Component Latest Ref Rng AND Units 12/19/2017 02/22/2018 02/23/2018 03/21/2018 WBC 3.70 - 11.00 k/uL 4.16 5.30 RBC 3.90 - 5.20 m/uL 4.47 4.57 Hemoglobin 11.5 - 15.5 g/dL 12.0 12.9 Hematocrit 36.0 - 46.0 % 38.1 40.2 MCV 80.0 - 100.0 fL 85.2 88.0 MCH 26.0 - 34.0 pG 26.8 28.2 MCHC 30.5 - 36.0 g/dL 31.5 32.1 RDW-CV 11.5 - 15.0 % 17.2 (H) 15.5 (H) Platelet Count 150 - 400 k/uL 88 (L) 99 (L) MPV 9.0 - 12.7 fL 11.5 10.7 Neut% % 54.3 59.7 Abs Neut (ANC) 1.45 - 7.50 k/uL 2.25 3.15 Lymph% % 32.2 27.2 Abs Lymph 1.00 - 4.00 k/uL 1.34 1.44 [place]% % 8.4 7.9 Abs [place] <0.87 k/uL 0.35 0.42 Eosin% % 4.6 4.3 Abs Eosin <0.46 k/uL 0.19 0.23 Baso% % 0.5 0.9 Abs Baso <0.11 k/uL <0.03 0.05 Nucleated Reds 0 /100 WBC 0.0 0.0 Absolute nRBC <0.01 k/uL <0.01 <0.01 Diff Type Auto Diff Auto Diff Protein, Total 6.3 - 8.0 g/dL 7.4 7.9 Albumin 3.9 - 4.9 g/dL 4.1 4.3 Calcium 8.5 - 10.2 mg/dL 9.6 8.2 (L) 10.2 Bilirubin, Total 0.2 - 1.3 mg/dL 0.9 1.2 Alkaline Phosphatase 34 - 123 U/L 117 114 AST 13 - 35 U/L 33 53 (H) Glucose 74 - 99 mg/dL 121 (H) 118 (H) 176 (H) BUN 7 - 21 mg/dL 10 5 (L) 11 Creatinine 0.58 - 0.96 mg/dL 0.61 0.39 (L) 0.67 Sodium 136 - 144 mmol/L 141 147 (H) 140 Potassium 3.7 - 5.1 mmol/L 4.1 3.2 (L) 4.5 Chloride 97 - 105 mmol/L 106 (H) 106 101 CO2 22 - 30 mmol/L 22 25 25 Anion Gap 9 - 18 mmol/L 13 19.2 14 ALT 7 - 38 U/L 29 44 (H) eGFR- >60 > 60 ml/min/1.73m2 >60 eGFR-All Other Races . >60 > 60 ml/Min/1.73m2 >60 Hemoglobin A1C 4.3 - 5.6 % 7.5 (H) Estimated Average Glucose mg/dL 169 Ammonia 11 - 51 umol/L 32 47 Alcohol, Serum 0 - 0.01 g/dL 0.58 (H) 0.36 (H) ASSESSMENT/PLAN: 1. Type 2 diabetes mellitus without complication, without long-term current use of insulin (HCC) - ICD9: 250.00, ICD10: E11.9 (primary diagnosis) worsening control - Add glimepiride (Amaryl) - Blood glucose monitoring on a once a day schedule - Encouraged regular aerobic exercise and weight loss - Follow up in 3 months, sooner should any other issues arise. - Discussed diabetic education issues of fci diabetic complications, hypoglycemic symptoms, hyperglycemic symptoms, diet, medications- side effects and need for compliance and importance of exercise with patient. - GLIMEPIRIDE 1 MG TABLET 2. Hyperammonemia (HCC) - ICD9: 270.6, ICD10: E72.20 Normal on last check. Continue lactulose - LACTULOSE 10 GRAM/15 ML ORAL SOLUTION 3. Alcoholism in remission (HCC) - ICD9: 303.93, ICD10: F10.21 In remission from February. Continue thiamine and folate, discussed importance of taking medications as prescribed to prevent encephalopathy. 4. Cirrhosis of liver without ascites, unspecified hepatic cirrhosis type (HCC) - ICD9: 571.5, ICD10: K74.60 F/u recommendations from Dr. Hillman's office. Continue abstinence from alcohol. 5. Anxiety - ICD9: 300.00, ICD10: F41.9 Uncontrolled. Continue zoloft as prescribed for additional 4 weeks before adjusting dosage. - HYDROXYZINE PAMOATE 50 MG CAPSULE 6. Hepatosplenomegaly - ICD9: 571.8, ICD10: R16.2 2 #4. F/u with hepatology. Continue abstinence from alcohol. Ruben Lorenzo MD Referring Provider: RUBEN LORENZO () [[id number]] Allergies As of Date: 04/19/2018 (No Known Allergies) Date Reviewed: 04/19/2018 Reviewed by: Juan Mckenzie Ma - Fully Assessed Reason for Visit: F/U 3 Month [443] Primary Visit Diagnosis:Type 2 diabetes mellitus without complication, without long-term current use of insulin (HCC) [E11.9] Other Visit Diagnoses:Hyperammonemia (HCC) [E72.20] Alcoholism in remission (HCC) [F10.21] Cirrhosis of liver without ascites, unspecified hepatic cirrhosis type (HCC) [K74.60] Anxiety [F41.9] Hepatosplenomegaly [R16.2] Order(s):lactulose (DUPHALAC, CONSTULOSE) 10 gram/15 mL solutionTake 15 mL by mouth twice daily.Disp: 120 mLRfl: 1 hydrOXYzine pamoate (VISTARIL) 50 mg capsuleTake 1 capsule by mouth three times daily as needed.Disp: 30 capsuleRfl: 0 traZODone (DESYREL) 50 mg tabletTake 1 tablet by mouth daily at bedtime.Disp: 30 tabletRfl: 0 glimepiride (AMARYL) 1 mg tabletTake 1 tablet by mouth daily with breakfast.Disp: 30 tabletRfl: 11 Prescriptions as of 04/19/2018 Sig: LACTULOSE 10 GRAM/15 ML ORAL * Take 15 mL by mouth twice clifford* HYDROXYZINE PAMOATE 50 MG CAP* Take 1 capsule by mouth three* TRAZODONE 50 MG TABLET Take 1 tablet by mouth daily * METFORMIN 500 MG TABLET Take 2 tablets by mouth twice* RANITIDINE 150 MG TABLET Take 150 mg by mouth once clifford* SODIUM CHLORIDE 0.65 % NASAL * Use 1 [place] in the nose as ne* SPIRONOLACTONE 50 MG TABLET Take 50 mg by mouth twice clifford* MELATONIN 5 MG CAPSULE Take 1 capsule by mouth as ne* ONDANSETRON 4 MG DISINTEGRATI* Take 1 tablet by mouth every * FERROUS SULFATE 325 MG (65 MG* Take 1 tablet by mouth twice * THIAMINE HCL (VITAMIN B1) 100* Take 1 tablet by mouth once d* FOLIC ACID 1 MG TABLET Take 1 tablet by mouth once d* DOCUSATE SODIUM 100 MG CAPSULE Take 1 capsule by mouth twice* SERTRALINE 100 MG TABLET Take 1 tablet by mouth once d* VITAMINS WITH CALCIU* Take 1 tablet by mouth once d* SUMATRIPTAN 100 MG TABLET Take 100 mg by mouth as neede* OMEPRAZOLE 40 MG CAPSULE,MARIBEL* Take 1 capsule by mouth once * IBUPROFEN 800 MG TABLET Take 800 mg by mouth every 6 * GLIMEPIRIDE 1 MG TABLET Take 1 tablet by mouth daily * Problem List As Of Date 04/19/2018 Noted Resolved Hyperammonemia (HCC) [E72.20] Diabetes mellitus, type II (HCC) [E11.9] Prediabetes [R73.03] 06/08/2017 Pancytopenia (HCC) [D61.818] INVALID FOR* Anxiety [F41.9] GERD (gastroesophageal reflux disease) [K21.9] Hepatosplenomegaly [R16.2] Alcoholism in remission (HCC) [F10.21] Cirrhosis of liver without ascites (HCC) [K74.6*INVALID FOR* Cirrhosis of liver (HCC) [K74.60] More... Prescriptions ordered this encounter Disp Refills Start End LACTULOSE 10 GRAM/15 ML ORAL SOLUTION 120 * 1 04/19/2018 Route: ORAL Sig: Take 15 mL by mouth twice daily. HYDROXYZINE PAMOATE 50 MG CAPSULE 30 c* 0 04/19/2018 Route: ORAL Sig: Take 1 capsule by mouth three times daily as needed. TRAZODONE 50 MG TABLET 30 t* 0 04/19/2018 Route: ORAL Sig: Take 1 tablet by mouth daily at bedtime. GLIMEPIRIDE 1 MG TABLET 30 t* 11 04/19/2018 Route: ORAL Sig: Take 1 tablet by mouth daily with breakfast. Medications Discontinued During This Encounter lactulose (DUPHALAC, CONSTULOSE) 10 * 120 * 1 11/19/2017 04/19/2018 Route: ORAL Sig: Take 15 mL by mouth twice daily. Disc: Reason for discontinue is not on file. hydrOXYzine pamoate (VISTARIL) 50 mg* 30 c* 0 11/14/2017 04/19/2018 Route: ORAL Sig: Take 1 capsule by mouth three times daily as needed. Disc: Reason for discontinue is not on file. traZODone (DESYREL) 50 mg tablet 30 t* 0 06/15/2017 04/19/2018 Route: ORAL Sig: Take 1 tablet by mouth daily at bedtime. Disc: Reason for discontinue is not on file. Disposition: Return in about 3 months (around 07/18/2018). Follow-up and Disposition History Recorded Encounter Status:Closed by RUBEN LORENZO MD on 04/19/18 PROGRESS Observed: 04/16/2018 Status: COMPLETED Source: [place] 11:21 AM [facility] O ID: [id number] Author: Kathy Kyle) Fitz Service: (none) Author Type: Nurse Practitioner Type: Progress Notes Filed: 04/16/2018 5:26 PM Note Text: Fibroscan was performed on April 16, 2018, by Anisha Macdonald LPN and results are interpreted by Kathy Byrnes CNP ? Diagnosis: Cirrhosis of liver Please refer to GET IMAGES for individual readings Number of readings: 10 IQR:5% E (kpa):27.0 CAP:179 ? Impression. The reading was adequate but the results are inconclusive as the scoring range for cirrhosis of liver is not established, clinical correlation recommended and advised patient to contact Dr. Hillman for further recommendation. ? Kathy Byrnes CNP ?? Grade CAP value up to 237 dB/M corresponds to S0 (< 10 % Fat) ? CAP value between (238 - 258 dB/M) corresponds to S1 (>/= 11 % Fat) ? CAP value between (259 - 289 dB/M) corresponds to S2 (>/= 33 % Fat) CAP value > 290dB/M corresponds to S3 (>/= 67 % Fat) ? ?? stage 0 ( ? ?S0:< 10 % steatosis) stage 1 (>/= S1: 11%-33% steatosis) stage 2 (>/= S2: 34%-66% steatosis) stage 3 (>/= S3: > 66% steatosis) ?? Int J Clin Exp Med. 2015; 8(10): 78672?10600. PROGRESS Observed: 04/16/2018 Status: COMPLETED Source: [place] 11:20 AM [facility] HNO ID: [id number] Author: Anisha Macdonald Service: (none) Author Type: (none) Type: Progress Notes Filed: 04/16/2018 11:21 AM Note Text: Patient seen this date and Fibroscan completed Anisha Macdonald LPN April 16, 2018 11:21 AM CNOV Observed: 04/16/2018 Status: COMPLETED Source: [place] 11:20 AM [facility] Office Visit ([facility]) POLO ALVES ([id number]) 1975 F Date Time Provider Department 04/16/18 11:20 AM HEPATOLOGY PROCEDURES A5 [facility]AST[facility]5 During your visit today, we recorded the following information about you: Kathy Byrnes APRN.CNP 04/16/2018 5:26 PM Signed Fibroscan was performed on April 16, 2018, by Anisha Macdonald LPN and results are interpreted by Kathy Byrnes CNP ? Diagnosis: Cirrhosis of liver Please refer to GET IMAGES for individual readings Number of readings: 10 IQR:5% E (kpa):27.0 CAP:179 ? Impression. The reading was adequate but the results are inconclusive as the scoring range for cirrhosis of liver is not established, clinical correlation recommended and advised patient to contact Dr. Hillman for further recommendation. ? Kathy Byrnes CNP ?? Grade CAP value up to 237 dB/M corresponds to S0 (< 10 % Fat) ? CAP value between (238 - 258 dB/M) corresponds to S1 (>/= 11 % Fat) ? CAP value between (259 - 289 dB/M) corresponds to S2 (>/= 33 % Fat) CAP value > 290dB/M corresponds to S3 (>/= 67 % Fat) ? ?? stage 0 ( ? ?S0:< 10 % steatosis) stage 1 (>/= S1: 11%-33% steatosis) stage 2 (>/= S2: 34%-66% steatosis) stage 3 (>/= S3: > 66% steatosis) ?? Int J Clin Exp Med. 2015; 8(10): 70112?96112. Referring Provider: KRISTIAN HILLMAN [[id number]] Allergies As of Date: 04/16/2018 (No Known Allergies) Date Reviewed: 03/21/2018 Reviewed by: Roxanne Adam (Branch Customer Service Representative) ALESIA Allan - Fully Assessed Visit Diagnosis:Cirrhosis of liver without ascites, unspecified hepatic cirrhosis type (HCC) [K74.60] Order(s):DDI VIBRATION CONTROLLED TRANSIENT ELASTOGRAPHY (VCTE) [[id number]] Order #: [id number] Prescriptions as of 04/16/2018 Sig: DOCUSATE SODIUM 100 MG CAPSULE Take 1 capsule by mouth twice* FERROUS SULFATE 325 MG (65 MG* Take 1 tablet by mouth twice * FOLIC ACID 1 MG TABLET Take 1 tablet by mouth once d* HYDROXYZINE PAMOATE 50 MG CAP* Take 1 capsule by mouth three* IBUPROFEN 800 MG TABLET Take 800 mg by mouth every 6 * LACTULOSE 10 GRAM/15 ML ORAL * Take 15 mL by mouth twice clifford* MELATONIN 5 MG CAPSULE Take 1 capsule by mouth as ne* METFORMIN 500 MG TABLET Take 2 tablets by mouth twice* OMEPRAZOLE 40 MG CAPSULE,MARIBEL* Take 1 capsule by mouth once * ONDANSETRON 4 MG DISINTEGRATI* Take 1 tablet by mouth every * VITAMINS WITH CALCIU* Take 1 tablet by mouth once d* RANITIDINE 150 MG TABLET Take 150 mg by mouth once clifford* SERTRALINE 100 MG TABLET Take 1 tablet by mouth once d* SODIUM CHLORIDE 0.65 % NASAL * Use 1 [place] in the nose as ne* SPIRONOLACTONE 50 MG TABLET Take 50 mg by mouth twice clifford* SUMATRIPTAN 100 MG TABLET Take 100 mg by mouth as neede* THIAMINE HCL (VITAMIN B1) 100* Take 1 tablet by mouth once d* TRAZODONE 50 MG TABLET Take 1 tablet by mouth daily * Problem List As Of Date 04/16/2018 Noted Resolved Hyperammonemia (HCC) [E72.20] Diabetes mellitus, type II (HCC) [E11.9] Prediabetes [R73.03] 06/08/2017 Pancytopenia (HCC) [D61.818] INVALID FOR* Anxiety [F41.9] GERD (gastroesophageal reflux disease) [K21.9] Hepatosplenomegaly [R16.2] Alcoholism in remission (HCC) [F10.21] Cirrhosis of liver without ascites (HCC) [K74.6*INVALID FOR* Encounter Status:Closed by KATHY BYRNES CNP on 04/16/18 CNNURSE Observed: 04/16/2018 Status: COMPLETED Source: [place] 12:00 AM [facility] Nurse Visit ([facility]) POLO ALVES ([id number]) 1975 F Date Time Provider Department 04/16/18 KRISTIAN HILLMAN GASTAK During your visit today, we recorded the following information about you: Anisha Macdonald 04/16/2018 11:21 AM Signed Patient seen this date and Fibroscan completed Anisha Macdonald LPN April 16, 2018 11:21 AM Allergies As of Date: 04/16/2018 (No Known Allergies) Date Reviewed: 03/21/2018 Reviewed by: Roxanne Adam (Branch Customer Service Representative) ALESIA Allan - Fully Assessed Primary Visit Diagnosis:Cirrhosis of liver without ascites, unspecified hepatic cirrhosis type (HCC) [K74.60] Prescriptions as of 04/16/2018 Sig: DOCUSATE SODIUM 100 MG CAPSULE Take 1 capsule by mouth twice* FERROUS SULFATE 325 MG (65 MG* Take 1 tablet by mouth twice * FOLIC ACID 1 MG TABLET Take 1 tablet by mouth once d* HYDROXYZINE PAMOATE 50 MG CAP* Take 1 capsule by mouth three* IBUPROFEN 800 MG TABLET Take 800 mg by mouth every 6 * LACTULOSE 10 GRAM/15 ML ORAL * Take 15 mL by mouth twice clifford* MELATONIN 5 MG CAPSULE Take 1 capsule by mouth as ne* METFORMIN 500 MG TABLET Take 2 tablets by mouth twice* OMEPRAZOLE 40 MG CAPSULE,MARIBEL* Take 1 capsule by mouth once * ONDANSETRON 4 MG DISINTEGRATI* Take 1 tablet by mouth every * VITAMINS WITH CALCIU* Take 1 tablet by mouth once d* RANITIDINE 150 MG TABLET Take 150 mg by mouth once clifford* SERTRALINE 100 MG TABLET Take 1 tablet by mouth once d* SODIUM CHLORIDE 0.65 % NASAL * Use 1 [place] in the nose as ne* SPIRONOLACTONE 50 MG TABLET Take 50 mg by mouth twice clifford* SUMATRIPTAN 100 MG TABLET Take 100 mg by mouth as neede* THIAMINE HCL (VITAMIN B1) 100* Take 1 tablet by mouth once d* TRAZODONE 50 MG TABLET Take 1 tablet by mouth daily * Problem List As Of Date 04/16/2018 Noted Resolved Hyperammonemia (HCC) [E72.20] Diabetes mellitus, type II (HCC) [E11.9] Prediabetes [R73.03] 06/08/2017 Pancytopenia (HCC) [D61.818] INVALID FOR* Anxiety [F41.9] GERD (gastroesophageal reflux disease) [K21.9] Hepatosplenomegaly [R16.2] Alcoholism in remission (HCC) [F10.21] Cirrhosis of liver without ascites (HCC) [K74.6*INVALID FOR* Encounter Status:Closed by ANISHA MACDONALD on 04/16/18 PROGESTERONE LEVEL Collected: 03/26/2018 Status: F Source: [place] 4:40 PM [facility] REPOSITORY TYPE CODE TESTS RESULT OUT OF REFERENCE UNITS RANGE LAB L509.4001 See Comment ng/mL Progesterone Normal 0.22 Result Comment: Progesterone Reference Table: UNITS Female: Follicular 0.15 - 1.40 ng/mL Luteal 3.34 - 25.56 ng/mL Mid-luteal 4.44 - 28.03 ng/mL Postmenopausal 0.0 - 0.73 ng/mL : 1st Trimester 11.22 - 90.00 ng/mL 2nd Trimester 25.55 - 89.40 ng/mL 3rd Trimester 48.40 -422.50 ng/mL Performed By: #### L509.4001 #### [facility] [address] [place], [place], [id number] ,SERUM,HCG QUALI. Collected: Status: F Source: [place] 03/26/2018 4:40 PM [facility] REPOSITORY TYPE CODE TESTS RESULT OUT OF REFERENCE UNITS RANGE LAB L700.7000 0-9 Nonpreg Negative Normal HCGSQUAL NEGATIVE LAB L700.6700 =>Qualitative mIU/mL Normal HCG Qual < 1 triggr Performed By: #### L700.6800 #### [facility] [address] [place], [place], [address] CBC AND DIFFERENTIAL Collected: 03/21/2018 Status: F Source: [place] 10:06 AM [facility] REPOSITORY TYPE CODE TESTS RESULT OUT OF REFERENCE UNITS RANGE LAB WBC 3.70-11.00 k/uL WBC 5.30 LAB RBC 3.90-5.20 m/uL RBC 4.57 LAB HGB 11.5-15.5 g/dL Hemoglobin 12.9 LAB HCT 36.0-46.0 % Hematocrit 40.2 LAB MCV 80.0-100.0 fL MCV 88.0 LAB MCH 26.0-34.0 pG MCH 28.2 LAB MCHC 30.5-36.0 g/dL MCHC 32.1 LAB RDWCV 11.5-15.0 % RDW-CV High 15.5 LAB PLTCT 150-400 k/uL Low Platelet Count 99 Result Comment: Result checked and verified No clot detected. LAB MPV 9.0-12.7 fL MPV 10.7 LAB ANEUT % Neut% 59.7 LAB AANEUT 1.45-7.50 k/uL Abs Neut 3.15 LAB ALYMP % Lymph% 27.2 LAB AALYMP 1.00-4.00 k/uL Abs Lymph 1.44 LAB AMONO % [place]% 7.9 LAB AAMONO <0.87 k/uL Abs [place] 0.42 LAB AEOS % Eosin% 4.3 LAB AAEOS <0.46 k/uL Abs Eosin 0.23 LAB ABASO % Baso% 0.9 LAB AABASO <0.11 k/uL Abs Baso 0.05 LAB AUNRBC 0 /100 WBC NRBCs 0.0 LAB ABNRBC <0.01 k/uL Absolute nRBC <0.01 LAB DTYP DTYPE Auto Diff Performed By: #### CBCDIF, CMP, NH3, HBA1C #### [facility] [address] [place], [place] [address] COMP METABOLIC PANEL Collected: 03/21/2018 Status: F Source: [place] 10:06 AM [facility] REPOSITORY TYPE CODE TESTS RESULT OUT OF REFERENCE UNITS RANGE LAB TP 6.3-8.0 g/dL Protein, Total 7.9 LAB ALB 3.9-4.9 g/dL Albumin 4.3 LAB CA 8.5-10.2 mg/dL Calcium, Total 10.2 LAB TBIL 0.2-1.3 mg/dL Bilirubin, Total 1.2 LAB ALKP 34-123 U/L Alkaline Phosphatase 114 LAB AST 13-35 U/L AST High 53 LAB GLU 74-99 mg/dL Glucose High 176 Result Comment: The [place] [employer] (ADA) provides guidance for cutoff values for fasting glucose and random glucose. The ADA defines fasting as no caloric intake for at least 8 hours. Fas ting plasma glucose results between 100 to 125 mg/dL indicate increased risk for diabetes (prediabetes). Fasting plasma glucose results greater than or equal to 126 mg/dL meet the criteria for diagnosis of diabetes. In the absence of unequivocal hyperglycemia, results should be confirmed by repeat testing. In a patient with classic symptoms of hyperglycemia or hyperglycemic crisis, random plasma glucose results greater than or equal to 200 mg/dL meet the criteria for diagnosis of diabetes. Reference: Standards of Medical Care in Diabetes 2016, [place] [employer]. Diabetes Care. 2016.39(Suppl 1). LAB BUN 7-21 mg/dL BUN 11 LAB CRET 0.58-0.96 mg/dL Creatinine 0.67 LAB NA 136-144 mmol/L Sodium 140 LAB K 3.7-5.1 mmol/L Potassium 4.5 LAB CL 97-105 mmol/L Chloride 101 LAB CO2 22-30 mmol/L CO2 25 LAB AGAP 9-18 mmol/L Anion Gap 14 LAB ALT 7-38 U/L ALT High 44 LAB GFRAA eGFR- Amer. >60 LAB GFRNAA . eGFR-All Other Races >60 Result Comment: eGFR (Estimated GFR) Units of measure: mL/min/1.73 meters squared eGFR is derived from the reexpressed MDRD Study equation using the following parameters: serum creatinine, age, gender and race. The creatinine assay has been calibrated to be traceable to IDMS. An eGFR <60 mL/min/1.73m2 for >3 months is consistent with chronic kidney disease. Refer to KDOQI guidelines for clinical interpretation. In patients with unstable renal function, e.g. those with acute kidney injury, the eGFR may not accurately reflect actual GFR. Performed By: #### CBCDIF, CMP, NH3, HBA1C #### [facility] [address] [id number] AMMONIA Collected: 03/21/2018 Status: F Source: [place] 10:06 AM [facility] REPOSITORY TYPE CODE TESTS RESULT OUT OF REFERENCE UNITS RANGE LAB NH3 11-51 umol/L Ammonia 47 Performed By: #### CBCDIF, CMP, NH3, HBA1C #### [facility] [address] [place], [place] [address] HEMOGLOBIN A1C Collected: 03/21/2018 Status: F Source: [place] 10:06 AM [facility] REPOSITORY TYPE CODE TESTS RESULT OUT OF REFERENCE UNITS RANGE LAB HGBA1C 4.3-5.6 % High Hemoglobin A1c 7.5 Result Comment: [place] [employer] guidelines indicate that patients with HgbA1c in the range 5.7-6.4% are at increased risk for development of diabetes, and intervention by lifestyle modification may be beneficial. HgbA1c greater or equal to 6.5% is considered diagnostic of diabetes. LAB HBA0 mg/dL Est. Average Glucose 169 Result Comment: eAG: (Estimated average glucose) is a calculated value from HgbA1c and is loss prevention representative of the average blood glucose level in the last 2-3 month period. Performed By: #### CBCDIF, CMP, NH3, HBA1C #### [facility] [address] [place], [place] [address] CNOV Observed: 03/21/2018 Status: COMPLETED Source: [place] 9:00 AM [facility] REPOSITORY Office Visit (FAMPWS) POLO ALVES ([id number]) 1975 F Date Time Provider Department 03/21/18 9:00 AM TRINI DOWNS ([facility]) FAMPWS During your visit today, we recorded the following information about you: Pulse Respiration Blood pressure Weight 60/minute 16/minute 110/70 76.7 kg Trini Downs APRN.KATHLEEN 03/21/2018 11:35 AM Signed 03/21/2018 Patient presents with: Recheck: from rehab SUBJECTIVE: This is a 42 year old that is here today for Above Complaints. Recently in rehab at the [place] for alcohol rehabilitation from February 23 through March 19. Reports feeling good since discharge. Has sponsor now which she hasn't had in the past. Went to AA meeting with sponsor last night and will be going at noon today. Has appointment with therapist at [facility] on Monday. Does not have any alcohol in house. Reports is supportive and is not drinking around her. Does not have plans to start drinking again. Scheduled end of March fir Fibro scan and EGD at [facility]. Continues to take lactulose for elevated ammonia level. Follows Dr. Bowen for pancytopenia. Denies bleeding gums, nosebleeds, hematuria, hematochezia, or melena. DIABETES MELLITUS: . Since our last visit she denies excessive thirst or increased frequency of urination, chest pain or dyspnea , numbness, tingling or pain in extremities, new or unusual visual symptoms, low sugar/hypoglycemic reactions, weight loss/gain, lightheadedness/dizziness and bowel changes/loose stools. Does note nausea from time to time, however thinks it is related to taking the lactulose. Follows a diabetic diet most of the time. She is compliant with medication(s) and is tolerating med(s) without any side effects. 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 Bowen - Recurrent genital herpes simplex type 1 infection diagnosed in 2013 - Thrombocytopenia (HCC) ALLERGIES Patient has no allergy information on record. MEDICATIONS Current Outpatient Prescriptions: ferrous sulfate 325 mg (65 mg iron) tablet Take 1 tablet by mouth twice daily with meals. thiamine (VITAMIN B1) 100 mg tablet Take 1 tablet by mouth once daily. folic acid 1 mg tablet Take 1 tablet by mouth once daily. docusate sodium (COLACE) 100 mg capsule Take 1 capsule by mouth twice daily as needed for Constipation. sertraline (ZOLOFT) 100 mg tablet Take 1 tablet by mouth once daily. Vitamin with 29 mg Iron ( PLUS) 29 mg iron- 1 mg Take 1 tablet by mouth once daily. lactulose (DUPHALAC, CONSTULOSE) 10 gram/15 mL solution Take 15 mL by mouth twice daily. SUMAtriptan (IMITREX) 100 mg tablet Take 100 mg by mouth as needed. hydrOXYzine pamoate (VISTARIL) 50 mg capsule Take 1 capsule by mouth three times daily as needed. Omeprazole 40 mg capsule Take 1 capsule by mouth once daily. metFORMIN (GLUCOPHAGE) 500 mg tablet Take 1 tablet by mouth twice daily with meals. traZODone (DESYREL) 50 mg tablet Take 1 tablet by mouth daily at bedtime. ibuprofen (MOTRIN) 800 mg tablet Take 800 mg by mouth every 6 hours as needed. No current facility-administered medications for this visit. Medications and allergies reviewed by this provider. SOCIAL HISTORY Social History Marital status: Spouse name: Years of education: Number of children: 2 Social History Main Topics Smoking status: Former Smoker Packs/day: 0.50 Years: 24.00 Types: Cigarettes Quit date: 05/06/2017 Smokeless tobacco: Never Used Alcohol use: No Comment: Recovering alcoholic Drug use: No Sexual activity: Yes control/protection: Injection REVIEW OF SYSTEMS GENERAL: No weight loss, malaise or fevers RESPIRATORY: Negative for cough, hemoptysis, wheezing, COPD, dyspnea or shortness of breath CARDIOVASCULAR: Negative for chest pain, leg swelling, hypertension, CHF or palpitations GI: See HPI SKIN: Negative for lesions, rash, and itching All other reviewed and negative other than HPI. OBJECTIVE: BP 110/70 (BP Site: Left Arm, BP Position: Sitting, BP Cuff Size: Regular Adult) Pulse 60 Resp 16 Wt 76.7 kg (169 lb 1.4 oz) BMI 27.09 kg/m? . Vital signs reviewed by this provider. APPEARANCE Well appearing, alert, in no acute distress, well- hydrated, well nourished. EYES conjunctiva and sclera normal. NECK Supple, no adenopathy; thyroid symmetric, normal size, HEART RRR with normal S1 and S2, no murmurs, no gallops, no JVD appreciated LUNG clear to auscultation. No wheezes, rhonchi, or rales ABDOMEN bowel sounds normoactive, no bruits, soft, non-tender, non-distended EXTREMITIES Extremities normal, No deformities, No skin discoloration and No edema SKIN Skin color, texture, turgor normal, no suspicious rashes or lesions ASSESSMENT/PLAN: 1. 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 Lorenzo as scheduled 2. Type 2 diabetes mellitus without complication, without long-term current use of insulin (HCC) - ICD9: 250.00, ICD10: E11.9 - Continue current medications - Check HgA1C - Blood glucose monitoring on a weekly schedule - Encouraged regular aerobic exercise and weight loss - BP goal of <130/80 - LDL goal of <100 - HGB A1C - follow-up with Dr. Lorenzo as scheduled 3. Pancytopenia (HCC) - ICD9: 284.19, ICD10: D61.818 - follow-up with Dr. Bowen - CBC 4. Hyperammonemia (HCC) - ICD9: 270.6, ICD10: E72.20 - continue lactulose - AMMONIA BLD 5. Cirrhosis of liver without ascites, unspecified hepatic cirrhosis type (HCC) - ICD9: 571.5, ICD10: K74.60 -follow-up with appointment and testing at end of March - COMP METABOLIC PANEL 6. Nausea - ICD9: 787.02, ICD10: R11.0 - ONDANSETRON 4 MG DISINTEGRATING TABLET 7. Need for vaccination - ICD9: V05.9, ICD10: Z23 - TETANUS/DIPTHERIA BOOSTER (OVER 7), PF BORIS Feliz Podlogar, INTERIOR DESIGN COORDINATOR.ACID PUMPER Prescription instructions reviewed with patient as applicable. Patient advised if symptoms do not improve or if symptoms worsen sooner, to contact their primary care physician. Potential red flag symptoms discussed with the patient. Reviewed appropriate action plan to take if red flag symptoms occur. Patient agreeable to treatment plan. Trini Downs APRN.KATHLEEN 03/21/2018 9:44 AM Signed Obtain eye exam and bring to next appointment Roxanne Allan LPN, ALESIA 03/21/2018 9:59 AM Signed Pt receives tetanus in office today ,tolerates well. 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) [F10.21] Other Visit Diagnoses:Type 2 diabetes mellitus without complication, without long-term current use of insulin (HCC) [E11.9] Pancytopenia (HCC) [D61.818] Hyperammonemia (HCC) [E72.20] Cirrhosis of liver without ascites, unspecified hepatic cirrhosis type (HCC) [K74.60] Nausea [R11.0] Need for vaccination [Z23] Order(s):COMP METABOLIC PANEL [SQCMP] Order #: [id number] FUTURE HGB A1C [WCAZG8Z] Order #: [id number] FUTURE TETANUS/DIPTHERIA BOOSTER (OVER 7), PF IM [[id number]] Order #: [id number] CBC [SQCBC] Order #: [id number] FUTURE AMMONIA BLD [SQNH3] Order #: [id number] FUTURE ondansetron orally disintegrating (ZOFRAN ODT) 4 mg disintegrating tabletTake 1 tablet by mouth every 6 hours as needed for Nausea/Vomiting.Disp: 20 tabletRfl: 1 Prescriptions as of 03/21/2018 Sig: RANITIDINE 150 MG TABLET Take 150 mg by mouth once clifford* SODIUM CHLORIDE 0.65 % NASAL * Use 1 [place] in the nose as ne* SPIRONOLACTONE 50 MG TABLET Take 50 mg by mouth twice clifford* MELATONIN 5 MG CAPSULE Take 1 capsule by mouth as ne* FERROUS SULFATE 325 MG (65 MG* Take 1 tablet by mouth twice * THIAMINE HCL (VITAMIN B1) 100* Take 1 tablet by mouth once d* FOLIC ACID 1 MG TABLET Take 1 tablet by mouth once d* DOCUSATE SODIUM 100 MG CAPSULE Take 1 capsule by mouth twice* SERTRALINE 100 MG TABLET Take 1 tablet by mouth once d* VITAMINS WITH CALCIU* Take 1 tablet by mouth once d* LACTULOSE 10 GRAM/15 ML ORAL * Take 15 mL by mouth twice clifford* SUMATRIPTAN 100 MG TABLET Take 100 mg by mouth as neede* HYDROXYZINE PAMOATE 50 MG CAP* Take 1 capsule by mouth three* OMEPRAZOLE 40 MG CAPSULE,MARIBEL* Take 1 capsule by mouth once * METFORMIN 500 MG TABLET Take 1 tablet by mouth twice * TRAZODONE 50 MG TABLET Take 1 tablet by mouth daily * IBUPROFEN 800 MG TABLET Take 800 mg by mouth every 6 * ONDANSETRON 4 MG DISINTEGRATI* Take 1 tablet by mouth every * Problem List As Of Date 03/21/2018 Noted Resolved Hyperammonemia (HCC) [E72.20] Diabetes mellitus, type II (HCC) [E11.9] Prediabetes [R73.03] 06/08/2017 Pancytopenia (HCC) [D61.818] INVALID FOR* Anxiety [F41.9] GERD (gastroesophageal reflux disease) [K21.9] Hepatosplenomegaly [R16.2] 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 Prescriptions ordered this encounter Disp Refills Start End ONDANSETRON 4 MG DISINTEGRATING TABL* 20 t* 1 03/21/2018 Route: ORAL Sig: Take 1 tablet by mouth every 6 hours as needed for Nausea/Vomiting. Follow-up and Disposition History Recorded Encounter Status:Closed by PODLOGARTRINI CNP on 03/21/18 PROGRESS Observed: 03/21/2018 Status: COMPLETED Source: [place] 8:50 AM [facility] RE[facility]IT[facility] HNO ID: [id number] Author: Trini Kyle) Podlogar Service: (none) Author Type: Nurse Practitioner Type: Progress Notes Filed: 03/21/2018 11:35 AM Note Text: 03/21/2018 Patient presents with: Recheck: from rehab SUBJECTIVE: This is a 42 year old that is here today for Above Complaints. Recently in rehab at the [place] for alcohol rehabilitation from February 23 through March 19. Reports feeling good since discharge. Has sponsor now which she hasn't had in the past. Went to AA meeting with sponsor last night and will be going at noon today. Has appointment with therapist at [facility] on Monday. Does not have any alcohol in house. Reports is supportive and is not drinking around her. Does not have plans to start drinking again. Scheduled end of March fir Fibro scan and EGD at [facility]. Continues to take lactulose for elevated ammonia level. Follows Dr. Bowen for pancytopenia. Denies bleeding gums, nosebleeds, hematuria, hematochezia, or melena. DIABETES MELLITUS: . Since our last visit she denies excessive thirst or increased frequency of urination, chest pain or dyspnea , numbness, tingling or pain in extremities, new or unusual visual symptoms, low sugar/hypoglycemic reactions, weight loss/gain, lightheadedness/dizziness and bowel changes/loose stools. Does note nausea from time to time, however thinks it is related to taking the lactulose. Follows a diabetic diet most of the time. She is compliant with medication(s) and is tolerating med(s) without any side effects. 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 Bowen - Recurrent genital herpes simplex type 1 infection diagnosed in 2012 - Thrombocytopenia (HCC) ALLERGIES Patient has no allergy information on record. MEDICATIONS Current Outpatient Prescriptions: ferrous sulfate 325 mg (65 mg iron) tablet Take 1 tablet by mouth twice daily with meals. thiamine (VITAMIN B1) 100 mg tablet Take 1 tablet by mouth once daily. folic acid 1 mg tablet Take 1 tablet by mouth once daily. docusate sodium (COLACE) 100 mg capsule Take 1 capsule by mouth twice daily as needed for Constipation. sertraline (ZOLOFT) 100 mg tablet Take 1 tablet by mouth once daily. Vitamin with 29 mg Iron ( PLUS) 29 mg iron- 1 mg Take 1 tablet by mouth once daily. lactulose (DUPHALAC, CONSTULOSE) 10 gram/15 mL solution Take 15 mL by mouth twice daily. SUMAtriptan (IMITREX) 100 mg tablet Take 100 mg by mouth as needed. hydrOXYzine pamoate (VISTARIL) 50 mg capsule Take 1 capsule by mouth three times daily as needed. Omeprazole 40 mg capsule Take 1 capsule by mouth once daily. metFORMIN (GLUCOPHAGE) 500 mg tablet Take 1 tablet by mouth twice daily with meals. traZODone (DESYREL) 50 mg tablet Take 1 tablet by mouth daily at bedtime. ibuprofen (MOTRIN) 800 mg tablet Take 800 mg by mouth every 6 hours as needed. No current facility-administered medications for this visit. Medications and allergies reviewed by this provider. SOCIAL HISTORY Social History Marital status: Spouse name: Years of education: Number of children: 2 Social History Main Topics Smoking status: Former Smoker Packs/day: 0.50 Years: 24.00 Types: Cigarettes Quit date: 05/06/2017 Smokeless tobacco: Never Used Alcohol use: No Comment: Recovering alcoholic Drug use: No Sexual activity: Yes control/protection: Injection REVIEW OF SYSTEMS GENERAL: No weight loss, malaise or fevers RESPIRATORY: Negative for cough, hemoptysis, wheezing, COPD, dyspnea or shortness of breath CARDIOVASCULAR: Negative for chest pain, leg swelling, hypertension, CHF or palpitations GI: See HPI SKIN: Negative for lesions, rash, and itching All other reviewed and negative other than HPI. OBJECTIVE: BP 110/70 (BP Site: Left Arm, BP Position: Sitting, BP Cuff Size: Regular Adult) Pulse 60 Resp 16 Wt 76.7 kg (169 lb 1.4 oz) BMI 27.09 kg/m? . Vital signs reviewed by this provider. APPEARANCE Well appearing, alert, in no acute distress, well-hydrated, well nourished. EYES conjunctiva and sclera normal. NECK Supple, no adenopathy; thyroid symmetric, normal size, HEART RRR with normal S1 and S2, no murmurs, no gallops, no JVD appreciated LUNG clear to auscultation. No wheezes, rhonchi, or rales ABDOMEN bowel sounds normoactive, no bruits, soft, non-tender, non-distended EXTREMITIES Extremities normal, No deformities, No skin discoloration and No edema SKIN Skin color, texture, turgor normal, no suspicious rashes or lesions ASSESSMENT/PLAN: 1. 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 Lorenzo as scheduled 2. Type 2 diabetes mellitus without complication, without long-term current use of insulin (HCC) - ICD9: 250.00, ICD10: E11.9 - Continue current medications - Check HgA1C - Blood glucose monitoring on a weekly schedule - Encouraged regular aerobic exercise and weight loss - BP goal of <130/80 - LDL goal of <100 - HGB A1C - follow-up with Dr. Lorenzo as scheduled 3. Pancytopenia (HCC) - ICD9: 284.19, ICD10: D61.818 - follow-up with Dr. Bwoen - CBC 4. Hyperammonemia (HCC) - ICD9: 270.6, ICD10: E72.20 - continue lactulose - AMMONIA BLD 5. Cirrhosis of liver without ascites, unspecified hepatic cirrhosis type (HCC) - ICD9: 571.5, ICD10: K74.60 -follow-up with appointment and testing at end of March - COMP METABOLIC PANEL 6. Nausea - ICD9: 787.02, ICD10: R11.0 - ONDANSETRON 4 MG DISINTEGRATING TABLET 7. Need for vaccination - ICD9: V05.9, ICD10: Z23 - TETANUS/DIPTHERIA BOOSTER (OVER 7), PF BORIS Crystallogradha, INTERIOR DESIGN COORDINATOR.ACID PUMPER Prescription instructions reviewed with patient as applicable. Patient advised if symptoms do not improve or if symptoms worsen sooner, to contact their primary care physician. Potential red flag symptoms discussed with the patient. Reviewed appropriate action plan to take if red flag symptoms occur. Patient agreeable to treatment plan. ED PROV NOTE Observed: 03/13/2018 Status: COMPLETED Source: [place] 11:31 AM [facility] REPOSITORY HNO ID: [id number] Author: George David Service: Emergency Medicine Author Type: Physician Type: ED Provider Notes Filed: 03/15/2018 7:40 AM Note Text: [place] [address] [facility] INFORMATION MANAGEMENT EMERGENCY DEPARTMENT REPORT Patient: POLO ALVES GEORGE DAVID D.O. [id number] F Status: [facility] ED Date of Service: 02/22/18 CHIEF COMPLAINT/HISTORY OF PRESENT ILLNESS The patient is a 42-year-old female who presents for alcohol intoxication from [facility]. This patient was signed out to mn. The patient had gone to [facility] [place] to sign in for alcohol rehab; however, the patient's alcohol level was too high. They sent her to the ED for further management until the alcohol had decreased to 0.4. The patient has been here in the ED has been alert and oriented. She has been very compliant and had no issues. The patient is going to be transferred at this time. The alcohol level has now come down to a reasonable level. The patient is going to be transferred to [facility] [place]. DIAGNOSIS Alcohol intoxication. <Electronically signed by GEORGE DAVID D.O.> 03/15/18 0734 GEORGE DAVID D.O. cc: GEORGE DAVID D.O. << Signature on File>> Reported By: GEORGE DAVID D.O. Signed By: GEORGE DAVID D.O. Tests performed at: [address] [address] EMERGENCY DEPARTMENT Observed: 03/13/2018 Status: F Source: [facility] 11:31 AM [facility] [place] [address] HEALTH INFORMATION MANAGEMENT EMERGENCY DEPARTMENT REPORT Patient: POLO ALVES GEORGE DAVID D.O. [id number] [age] F Status: DEP ER ED Date of Service: 02/22/18 CHIEF COMPLAINT/HISTORY OF PRESENT ILLNESS The patient is a 42-year-old female who presents for alcohol intoxication from [facility] [place] [place]. This patient was signed out to me. The patient had gone to [facility] [place] [place] to sign in for alcohol rehab; however, the patient's alcohol level was too high. They sent her to the ED for further management until the alcohol had decreased to 0.4. The patient has been here in the ED has been alert and oriented. She has been very compliant and had no issues. The patient is going to be transferred at this time. The alcohol level has now come down to a reasonable level. The patient is going to be transferred to [facility] [place]. DIAGNOSIS Alcohol intoxication. <Electronically signed by GEORGE DAVID D.O.> 03/15/18 0734 GEORGE DAVID D.O. cc: GEORGE DAVID D.O. << Signature on File>> Reported By: GEORGE DAVID D.O. Signed By: GEORGE DAVID D.O. Tests performed at: [address] [address] ED PROV NOTE Observed: 02/23/2018 Status: COMPLETED Source: [place] 1:34 PM [facility] REPOSITORY [facility] ID: [id number] Author: India Hatfield Service: (none) Author Type: Physician Type: ED Provider Notes Filed: 02/26/2018 7:52 AM Note Text: [place] [address] [facility] INFORMATION MANAGEMENT EMERGENCY DEPARTMENT REPORT Patient: POLO ALVES ELLEN Mane Avila [id number] [age] F Status: DEP ER ED Date of Service: 02/22/18 HISTORY OF PRESENT ILLNESS This is a 42-year-old female who comes to us from [facility] [place] where she was getting checked in [facility], took a breathalyzer test and was told that her alcohol level was too high. So they called us and told us that if we would keep the patient until her alcohol level came down to less than 0.4 that they would arrange transfer for her to come back to the rehab center. So, Polo has no complaints at this time. She says she has been drinking since she was 16. She has been through detox four times. REVIEW OF SYSTEMS All other systems reviewed and negative. PAST MEDICAL HISTORY She is diabetic. MEDICATIONS She is on metformin. PHYSICAL EXAMINATION On exam her vital signs are stable. She is afebrile, alert, a well-developed, well-nourished 42-year-old in no distress. Head is atraumatic, normocephalic. Oral mucosa pink, moist. Neck supple. Cardiovascular exam: Regular. Breath sounds are clear. Her abdomen is benign. Extremities: Intact x4 without clubbing, cyanosis or edema. I do not appreciate focal deficits. Her skin is warm and dry. EMERGENCY DEPARTMENT COURSE So in the emergency department we checked her alcohol, found it to be 0.58 so she will certainly need to stay here for a while so I ordered fluids in a banana bag. Her lytes showed her potassium to be 3.2 so she has been given a dose of K-Lyte as well and she is resting comfortably. She asked for phenobarb. I told her we would not be giving her that. She wanted some ibuprofen because the bed was uncomfortable so I gave her that. The patient will be observed here until her alcohol is less than 0.4 and then she will be discharged back to [facility] [place]. IMPRESSION <Electronically signed by INDIA HATFIELD D.O.> 02/26/18 0747 INDIA HATFIELD D.O. cc: INDIA HATFIELD D.O. << Signature on File>> Reported By: INDIA HATFIELD D.O. Signed By: INDIA HATFIELD D.O. Tests performed at: [place] [phone] EMERGENCY DEPARTMENT Observed: 02/23/2018 Status: F Source: [place] RE[place] 1:34 PM [facility] [place] [address] HEALTH INFORMATION MANAGEMENT EMERGENCY DEPARTMENT REPORT Patient: POLO ALVESNIDIA HASSAN D.O. [id number] [age] F Status: DEP ER ED Date of Service: 02/22/18 HISTORY OF PRESENT ILLNESS This is a 42-year-old female who comes to us from the [place] where she was getting checked in [facility], took a breathalyzer test and was told that her alcohol level was too high. So they called us and told us that if we would keep the patient until her alcohol level came down to less than 0.4 that they would arrange transfer for her to come back to the rehab center. So, Polo has no complaints at this time. She says she has been drinking since she was 16. She has been through detox four times. REVIEW OF SYSTEMS All other systems reviewed and negative. PAST MEDICAL HISTORY She is diabetic. MEDICATIONS She is on metformin. PHYSICAL EXAMINATION On exam her vital signs are stable. She is afebrile, alert, a well-developed, well-nourished 42-year-old in no distress. Head is atraumatic, normocephalic. Oral mucosa pink, moist. Neck supple. Cardiovascular exam: Regular. Breath sounds are clear. Her abdomen is benign. Extremities: Intact x4 without clubbing, cyanosis or edema. I do not appreciate focal deficits. Her skin is warm and dry. EMERGENCY DEPARTMENT COURSE So in the emergency department we checked her alcohol, found it to be 0.58 so she will certainly need to stay here for a while so I ordered fluids in a banana bag. Her lytes showed her potassium to be 3.2 so she has been given a dose of K-Lyte as well and she is resting comfortably. She asked for phenobarb. I told her we would not be giving her that. She wanted some ibuprofen because the bed was uncomfortable so I gave her that. The patient will be observed here until her alcohol is less than 0.4 and then she will be discharged back to [facility] [place]. IMPRESSION <Electronically signed by INDIA HATFIELD D.O.> 02/26/18 0747 INDIA HATFIELD D.O. cc: INDIA HATFIELD D.O. << Signature on File>> Reported By: INDIA HATFIELD D.O. Signed By: INDIA HATFIELD D.O. Tests performed at: [address] [address] ALCOHOL Collected: 02/23/2018 Status: F Source: [place] 7:31 AM [facility] REPOSITORY TYPE CODE TESTS RESULT OUT OF REFERENCE UNITS RANGE LAB L100.0530 0-0.01 g/dL High ALCOHOL 0.36 Performed By: #### L100.0530 #### [facility] [address] [place] [id number] BMP Collected: 02/22/2018 Status: F Source: [facility] 11:52 PM HOSPITAL REPOSITORY Order Comment: SCRUBBED WITH IODINE TYPE CODE TESTS RESULT OUT OF RANGE REFERENCE UNITS LAB L100.0060 74-106 mg/dL High GLUCOSE 118 LAB L100.0110 6-20 mg/dL Low BUN 5 LAB L100.0131 0.50-0.90 mg/dL Low CREATININE 0.39 LAB L100.0140 8.6-10.0 mg/dL Low CALCIUM 8.2 LAB L100.0150 135-145 mmol/L High SODIUM 147 LAB L100.0160 3.5-5.0 mmol/L Low POTASSIUM 3.2 LAB L100.0170 98-107 mmol/L CHLORIDE Normal 106 LAB L100.0180 22-29 mmol/L TCO2 Normal 25 LAB L100.0185 15-22 mmol/L ANION Normal GAP 19.2 LAB L100.0274 eGFR Normal nonAFR John > 60 ml/Min/1.73m 2 LAB L100.0275 eGFR if Normal AFR JOHN > 60 ml/min/1.73m 2 Result Comment: eGFR >= 60 Indicates normal kidney function. * eGFR IS AN ESTIMATE * (AFR JOHN = ) (non-AFR AM = NON-) MDRD calculation used in the eGFR should not be used to dose medications. For further limitations of the eGFR please refer to the Physician Website or the National Kidney Disease Education Program website (www.nkdep.nih.gov). Performed By: #### L100.0010 #### [facility] - LABORATORY [address] [place] [address] ALCOHOL Collected: 02/22/2018 Status: F Source: [place] 11:52 PM [facility] REPOSITORY Order Comment: SCRUBBED WITH IODINE TYPE CODE TESTS RESULT OUT OF REFERENCE UNITS RANGE LAB L100.0530 0-0.01 g/dL High ALCOHOL 0.58 Performed By: #### L100.0530 #### [facility] [address] [place] [address] EMERGENCY DEPARTMENT Observed: 02/14/2018 Status: F Source: [place] SUMMARY 12:00 AM [facility] REPOSITORY [facility] Medical Records Department [address] [place] [address] Emergency Department Summary 02/13/18 2112 MR#: [id number] Acct: [id number] Name: POLO ALVES Rep #: [id number] : 1975 42 From: Jose Pepper DO PCP: Lawrence Lorenzo MD Status: DEP ER - ER Visit Summary Date of Service: 02/13/18 Chief Complaint: Right hip pain History of Present Illness: The patient is a 42 F who states for 2 weeks she has had pain in the right hip. Nothing is different about it today but she wanted to come to the emergency room for evaluation. She has not contacted her doctor about this. She states that she is an alcoholic therefore you must take care of me. She denies any fevers. No IV drug use. She denies any known trauma. No redness or rash over the hip. Physical Examination: Patient is afebrile her vital signs show tachycardia in triage at 127 however on my examination in the bed her heart rate is 82 Gen: Well-nourished well-developed Head: Normocephalic atraumatic Eyes: Perrl EOMI ENT: TMs clear no rhinorrhea moist mucous membranes Neck: Supple no lymphadenopathy no JVD nontender CVS: Regular rate rhythm no murmurs normal S1-S2 Respiratory: No distress clear to auscultation bilaterally chest nontender Abdomen: Soft nontender nondistended normal bowel sounds no masses Back: Nontender Extremity: Tender to palpation over the right greater trochanter. There is no rash or erythema. Negative logroll. She is able to flex and extend her hip. Skin: Normal color no rash no goosebumps/. Neuro: alert orientated 3 CN II-XII intact normal strength sensation reflexes gait cerebellar Psych: Patient has an inappropriate affect laughing at times Test Results: X-rays of the hip and pelvis were negative for fracture Emergency Department Course and Treatment: Patient was given Toradol. We will start her on ibuprofen. I believe this is a bursitis. She is not improving with ice and anti-inflammatories and conservative treatment she will need to follow-up. She states that she would like to be admitted because she is an alcoholic and would like to be detoxed. She scored a 10 on the CIWA form. And that was for subjective findings. There are no physical exam findings of alcohol withdrawal at the current time. Patient was advised she should call [facility] tomorrow. Impression: 1. Right greater trochanteric bursitis 2. Alcoholism This note was generated with [employer] dictation software. It may contain incorrect words, spelling, and punctuation that were not noted in review of the chart prior to signing ED Disposition - Plan for ED Patient: Disposition: Home or Assisted Living Chief Complaint: Lower Extremity Injury Instructions: ED Bursitis Prescriptions: Ibuprofen [Motrin] 800 mg PO TID #20 tab Referrals: Lawrence Lorenzo MD [Primary Care Provider] - 1 Week if not improving What to do if you have Problems For any increased pain, shortness of breath, bleeding, nausea or vomiting, chest pain, or any unexpected problems, contact your Primary Care Provider. Call [facility] ([phone]) or report to the closest Emergency Room. Call 911 if necessary. 02/14/18 0000 <Electronically signed by Jose Pepper DO> Date Jose Pepper DO [facility] Signature (If Indicated): Date CC: Lawrence Lorenzo MD HIP, UNI W/ PELVIS Observed: 02/13/2018 Status: F Source: [place] 2-3 VIEWS 8:30 PM [facility] REPOSITORY [facility] Imaging Services [address] [place] [address] HIP, UNI W/ Pelvis 2-3 Views MR#: [id number] Acct: [id number] Name: POLO ALVES Rep #: [id number] : 1975 F 42 From: Jose Alfredo Navarro MD PCP: Lawrence Lorenzo MD Status: REG ER Study: HIP, UNI W/ Pelvis 2-3 Views Date of Exam: 02/13/18 Exam# [id number] Ordering Dr: Jose Pepper DO STUDY: X-RAY - PELVIS AND RIGHT HIP REASON FOR EXAM: Female, 42 years old. Pain TECHNIQUE: Radiological exam, hip, unilateral, with pelvis when performed; 2 or 3 views. COMPARISON: None. FINDINGS: There is a non-specific bowel gas pattern. Normal visualized soft tissue structures. Normal bilateral iliac wings, sacroiliac joints and visualized sacrum. Normal bilateral superior and inferior pubic rami. Normal pubic symphysis. Normal bilateral ischial tuberosities. Normal visualized femoral head. Normal acetabulum. Normal hip joint. RAD/HIP, UNI W/ Pelvis 2-3 Views IMPRESSION: Normal x-ray examination of the pelvis and right hip. Electronically Signed: Jose Alfredo Navarro, at 20:59 EDT Tel , Service support , CC: Lawrence Lorenzo MD; Jose Pepper DO Tool Technician: Signed CNCO Observed: 02/07/2018 Status: COMPLETED Source: [place] 3:10 PM [facility] REPOSITORY [facility] ID: [id number] Author: Mammography Coordinator Service: (none) Author Type: Physician Type: Letter Filed: 02/08/2018 11:32 PM Note Text: February 07, 2018 PID: [id number] Polo Alves [address] [place] [address] Dear Ms. Alves, We are pleased to inform you that the results of your recent breast imaging exam on 02/07/2018 are normal and we recommend that you return to your annual screening Mammography schedule. Your mammogram demonstrates that you have dense breast tissue, which could hide abnormalities. Dense breast tissue, in and of itself, is a relatively common condition. Therefore, this information is not provided to cause undue concern; rather, it is to raise your awareness and promote discussion with your health care provider regarding the presence of dense breast tissue in addition to other risk factors. Early detection of cancer is very important. We also understand recommendations regarding breast cancer screening are controversial. Please discuss with your primary care provider which strategy is best for you and whether a mammogram is right for you. Your imaging studies and report will be kept on file at [facility] as part of your permanent medical record and are available for your continuing care. Thank you for allowing us to help in meeting your health care needs. Sincerely, Dr. Jung Interpreting Radiologist [facility] (Return to Annual Mammogram schedule) CNCO Observed: 02/07/2018 Status: COMPLETED Source: [place] 3:10 PM [facility] REPOSITORY [facility] ID: [id number] Author: Mammography Coordinator Service: (none) Author Type: Physician Type: Letter Filed: 02/08/2018 11:32 PM Note Text: February 07, 2018 PID: [id number] Polo Alves [address] [place] [address] Dear Ms. Alves, We are pleased to inform you that the results of your recent breast imaging exam on 02/07/2018 are normal and we recommend that you return to your annual screening Mammography schedule. Your mammogram demonstrates that you have dense breast tissue, which could hide abnormalities. Dense breast tissue, in and of itself, is a relatively common condition. Therefore, this information is not provided to cause undue concern; rather, it is to raise your awareness and promote discussion with your health care provider regarding the presence of dense breast tissue in addition to other risk factors. Early detection of cancer is very important. We also understand recommendations regarding breast cancer screening are controversial. Please discuss with your primary care provider which strategy is best for you and whether a mammogram is right for you. Your imaging studies and report will be kept on file at [facility] as part of your permanent medical record and are available for your continuing care. Thank you for allowing us to help in meeting your health care needs. Sincerely, Dr. Jung Interpreting Radiologist [facility] (Return to Annual Mammogram schedule) PROGRESS Observed: 02/07/2018 Status: COMPLETED Source: [place] 3:05 PM [facility] REPOSITORY [facility] ID: [id number] Author: Diana Cuellar Service: (none) Author Type: Bracelet Form Coverer Type: Progress Notes Filed: 02/07/2018 3:05 PM Note Text: Radiology Service Progress Note PATIENT NAME: Polo Alves DATE OF SERVICE: February 07, 2018 TIME: 3:05 PM PATIENT IDENTITY VERIFICATION COMPLETED USING TWO (2) METHODS: Patient confirmed name verbally and Date of . PATIENT GENDER DATA: Female. status: : No status: N/A PATIENT RELEVANT IMPLANT DATA REVIEWED: Not Applicable RADIOLOGY DEPARTMENT: Ultrasound PERIPHERAL IV DATA: Not applicable SIGNED BY: DIANA CUELLAR RDMS RVAgatha February 07, 2018 3:05 PM [facility] [employer] Observed: 02/07/2018 Status: F Source: [place] RT 2:52 PM [facility] REPOSITORY * * *Final Report* * * DATE OF EXAM: Feb 07 2018 2:52PM [facility] 0594 - [place] US BREAST LTD RT / PROCEDURE REASON: Abnormal mammogram * * * * Physician Interpretation * * * * #[id number] - [facility] DIAGNOSTIC RT UNILATERAL RIGHT DIGITAL DIAGNOSTIC MAMMOGRAM WITH CAD: 02/07/2018 HISTORY: Diagnostic Mammogram /Call back/abnormal mamm: Right. RESULT: TECHNIQUE: The study was acquired using full field digital technology and interpreted from soft copy. Current study was also evaluated with a Computer Aided Detection (CAD). Comparison is made to exam dated: 01/17/2018 mammogram - [facility]. The tissue of the right breast is heterogeneously dense. This may lower the sensitivity of mammography. There is a benign 0.5 cm lymph node in the right breast at 10 o'clock middle depth. No other significant masses or calcifications are seen in the breast. BENIGN FINDING There is no mammographic evidence of malignancy. #[id number] - [facility] US BREAST LTD RT ULTRASOUND OF RIGHT BREAST: 02/07/2018 RESULT: Comparison is made to exam dated: 01/17/2018 mammogram - [facility]. Color flow and real-time ultrasound of the right breast were performed. There is a benign 0.3 cm x 0.5 cm x 0.5 cm oval lymph node with a circumscribed margin in the right breast at 10 o'clock middle depth 5 cm from the nipple. This oval lymph node is hypoechoic with fatty hilum. This correlates with mammography findings. Color flow imaging demonstrates that there is vascularity present. IMPRESSION: BENIGN FINDING There is no sonographic evidence of malignancy. The 0.3 cm x 0.5 cm x 0.5 cm oval lymph node in the right breast is consistent with a lymph node and is benign. A 1 year screening mammogram is recommended. Patrick rust/birgit:02/07/2018 15:10:33 Agency Owner: Nely SCHMITT(Kathe)(Kia), [facility] Multiple national specialty organizations have released breast cancer screening guidelines for women at average risk for developing breast cancer - guidelines that are based on both evidence and opinion, yet differ on when to start and how often to screen for breast cancer. With representation from Breast Imaging, Internal Medicine, Women's Health, Family Medicine, and Medical/Surgical Oncology, the [facility] has carefully reviewed the data and reached the following consensus: 1) All women should engage in shared decision-making with their providers to decide when to start and how often to screen; 2) All women should have the opportunity to start screening mammography at age 40; 3) For women ages 45-55, we recommend annual screening mammograms; 4) For women ages 55 and over, we support both the transition from an annual to a biennial interval if this aligns more with patient's values and preferences, or continuation with annual screening; 5) All women should discuss with their providers when to stop screening mammograms. letter sent: Return to Annual OVERALL STUDY BIRADS: 2 Benign finding Tool Technician: Birgit Transcribe Date/Time: Feb 07 2018 2:06P Dictated by : PATRICK JUNG MD This examination was interpreted and the report reviewed and electronically signed by: PATRICK JUNG MD on Feb 07 2018 3:10PM EST [id number] [id number] Observed: 02/07/2018 Status: COMPLETED Source: [place] 2:50 PM [facility] REPOSITORY [facility] ID: [id number] Author: Nely Schmitt Service: (none) Author Type: (none) Type: Progress Notes Filed: 02/07/2018 2:51 PM Note Text: Radiology Service Progress Note PATIENT NAME: Polo Alves DATE OF SERVICE: February 07, 2018 TIME: 2:50 PM PATIENT IDENTITY VERIFICATION COMPLETED USING TWO (2) METHODS: Patient confirmed name verbally and Date of . PATIENT GENDER DATA: Female. status: : No status: NO. PATIENT RELEVANT IMPLANT DATA REVIEWED: Not Applicable RADIOLOGY DEPARTMENT: [facility] DIAGNOSTIC MAMMOGRAM PERIPHERAL IV DATA: Not applicable SIGNED BY: Nely Schmitt February 07, 2018 2:50 PM [facility] DIAGNOSTIC RT Observed: 02/07/2018 Status: F Source: [place] 2:23 PM [facility] REPOSITORY * * *Final Report* * * DATE OF EXAM: Feb 07 2018 2:23PM [facility] 0626 - [facility] DIAGNOSTIC RT / PROCEDURE REASON: Abnormal mammogram * * * * Physician Interpretation * * * * RESULT: #[id number] - [facility] DIAGNOSTIC RT UNILATERAL RIGHT DIGITAL DIAGNOSTIC MAMMOGRAM WITH CAD: 02/07/2018 HISTORY: Diagnostic Mammogram /Call back/abnormal mamm: Right. RESULT: TECHNIQUE: The study was acquired using full field digital technology and interpreted from soft copy. Current study was also evaluated with a Computer Aided Detection (CAD). Comparison is made to exam dated: 01/17/2018 mammogram - [facility]. The tissue of the right breast is heterogeneously dense. This may lower the sensitivity of mammography. There is a benign 0.5 cm lymph node in the right breast at 10 o'clock middle depth. No other significant masses or calcifications are seen in the breast. BENIGN FINDING There is no mammographic evidence of malignancy. #[id number] - [facility] US BREAST LTD RT ULTRASOUND OF RIGHT BREAST: 02/07/2018 RESULT: Comparison is made to exam dated: 01/17/2018 mammogram - [facility]. Color flow and real-time ultrasound of the right breast were performed. There is a benign 0.3 cm x 0.5 cm x 0.5 cm oval lymph node with a circumscribed margin in the right breast at 10 o'clock middle depth 5 cm from the nipple. This oval lymph node is hypoechoic with fatty hilum. This correlates with mammography findings. Color flow imaging demonstrates that there is vascularity present. IMPRESSION: BENIGN FINDING There is no sonographic evidence of malignancy. The 0.3 cm x 0.5 cm x 0.5 cm oval lymph node in the right breast is consistent with a lymph node and is benign. A 1 year screening mammogram is recommended. Patrick rust/birgit:02/07/2018 15:10:33 Agency Owner: Nely SCHMITT(Kathe)(M), [facility] Multiple national specialty organizations have released breast cancer screening guidelines for women at average risk for developing breast cancer - guidelines that are based on both evidence and opinion, yet differ on when to start and how often to screen for breast cancer. With representation from Breast Imaging, Internal Medicine, Women's Health, Family Medicine, and Medical/Surgical Oncology, the [facility] has carefully reviewed the data and reached the following consensus: 1) All women should engage in shared decision-making with their providers to decide when to start and how often to screen; 2) All women should have the opportunity to start screening mammography at age 40; 3) For women ages 45-55, we recommend annual screening mammograms; 4) For women ages 55 and over, we support both the transition from an annual to a biennial interval if this aligns more with patient's values and preferences, or continuation with annual screening; 5) All women should discuss with their providers when to stop screening mammograms. letter sent: Return to Annual OVERALL STUDY BIRADS: 2 Benign finding Tool Technician: Penrad Transcribe Date/Time: Feb 07 2018 2:06P Dictated by: PATRICK JUNG MD This examination was interpreted and the report reviewed and electronically signed by: PATRICK JUNG MD on Feb 07 2018 3:10PM EST [id number] CNCO Observed: 01/17/2018 Status: COMPLETED Source: [place] 9:36 AM [facility] REPOSITORY HNO ID: [id number] Author: Mammography Coordinator Service: (none) Author Type: Physician Type: Letter Filed: 01/18/2018 11:31 PM Note Text: January 17, 2018 PID: [id number] Polo Alves [address] [place] [address] Dear Ms. Alves, Your recent breast imaging exam on 01/17/2018 showed a possible finding that requires additional imaging studies for a complete evaluation. Most such findings are probably benign (not cancer). Please call [phone] or [phone] to schedule an appointment for your additional imaging if you have not already done so. Your mammogram demonstrates that you have dense breast tissue, which could hide abnormalities. Dense breast tissue, in and of itself, is a relatively common condition. Therefore, this information is not provided to cause undue concern; rather, it is to raise your awareness and promote discussion with your health care provider regarding the presence of dense breast tissue in addition to other risk factors. Your breast images and report will be kept on file here as part of your permanent medical record and are available for your continuing care. Thank you for allowing us to help in meeting your health care needs. Sincerely, Dr. Tipton Interpreting Radiologist [facility] (Additional imaging) [facility] SCREENING Observed: 01/17/2018 Status: F Source: [place] 9:18 AM [facility] REPOSITORY * * *Final Report* * * DATE OF EXAM: Jan 17 2018 9:18AM [facility] 0581 - [facility] SCREENING / PROCEDURE REASON: Screening mammogram, encounter for * * * * Physician Interpretation * * * * RESULT: #[id number] - [facility] SCREENING BILATERAL DIGITAL SCREENING MAMMOGRAM WITH CAD: 01/17/2018 HISTORY: Screening Mammogram, Screening Mammogram - patient reports NO breast symptoms /baseline mammogram. RESULT: TECHNIQUE: The study was acquired using full field digital technology and interpreted from soft copy. Current study was also evaluated with a Computer Aided Detection (CAD). There are no prior films available for comparison. This is the patient's baseline examination. The tissue of both breasts is heterogeneously dense. This may lower the sensitivity of mammography. There is a mass in the right breast upper outer aspect middle depth. There also is a possible asymmetry in the right breast sub- areolar depth central to the nipple seen on the craniocaudal view only. No other significant masses, calcifications, or other findings are seen in either breast. IMPRESSION: INCOMPLETE: NEEDS ADDITIONAL IMAGING EVALUATION The mass in the right breast upper outer aspect middle depth most likely is a lymph node and is indeterminate. Additional views are recommended. The possible asymmetry in the right breast sub-areolar depth central to the nipple seen on the craniocaudal view only is indeterminate. Additional views are recommended. Stacy Tipton M.D., lp/birgit:01/17/2018 09:36:39 Agency Owner: Kalyani SCHMITT(Kathe)(Kia), [facility] letter sent: Additional Imaging Needed Mammogram BI-RADS: 0 Incomplete: needs additional imaging evaluation If this report indicates you need additional imaging, and it has NOT yet been performed, please call , to schedule. We sincerely thank you for choosing the [facility] for your breast imaging needs. Multiple national specialty organizations have released breast cancer screening guidelines for women at average risk for developing breast cancer - guidelines that are based on both evidence and opinion, yet differ on when to start and how often to screen for breast cancer. With representation from Breast Imaging, Internal Medicine, Women's Health, Family Medicine, and Medical/Surgical Oncology, the [facility] has carefully reviewed the data and reached the following consensus: 1) All women should engage in shared decision-making with their providers to decide when to start and how often to screen; 2) All women should have the opportunity to start screening mammography at age 40; 3) For women ages 45-55, we recommend annual screening mammograms; 4) For women ages 55 and over, we support both the transition from an annual to a biennial interval if this aligns more with patient's values and preferences, or continuation with annual screening; 5) All women should discuss with their providers when to stop screening mammograms. Tool Technician: Birgit Transcribe Date/Time: Jan 17 2018 9:19A Dictated by: STACY TIPTON MD This examination was interpreted and the report reviewed and electronically signed by: STACY TIPTON MD on Jan 17 2018 9:36AM EST [id number] Observed: 01/10/2018 Status: COMPLETED Source: [place] 11:10 AM [facility] REPOSITORY O ID: [id number] Author: Ruben Man) Bj Service: (none) Author Type: Physician Type: Progress Notes Filed: 01/10/2018 1:46 PM Note Text: Chief Complaint Patient presents with: F/U 3 Month HPI Polo Alves is a 42 year old female who presents here today for 3 month follow up. Since last OV, patient has followed up with hematology for pancytopenia felt to be related to her alcoholic cirrhosis. Obtained labs and recommended iron supplements and f/u with heptology. Seen by Dr. Hillman on 01/02 for cirrhosis who recommended continued cessation of alcohol, EGD, fibroscan, and blood work. F/u labs appear to be normal. EGD not performed as of yet, scheduled for 02/05. States that she has been abstinent from alcohol for total of 74 days. Taking thiamine, folate, and iron as recommended. Attending AA about once every couple weeks, has called her sober support when needed. Still getting urges occasionally, but feels she is getting help when she needs it. Has not had any recurrent bleeding symptoms, much improved since cessation of alcohol. Taking iron supplement without constipation. Using lactulose as prescribed for hyperammonemia. Taking metformin as prescribed for DM. Last A1C controlled. Denies worsening symptoms. Needs to schedule appointment with optho. Last pap was about [address] Ta office, was normal. F/u in 1 year. Will need to obtain records. Due for mammogram. Past medical history, appointments, medications, allergies reviewed. 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) - Anxiety - Diabetes mellitus, type II (HCC) - Elevated LFTs - Gallstones - GERD (gastroesophageal reflux disease) - Gestational diabetes mellitus - Hepatic steatosis - Hepatosplenomegaly - Hyperammonemia (HCC) - Insomnia - Pancytopenia (HCC) 07/05/2017 Dr. Bowen - Recurrent genital herpes simplex type 1 infection diagnosed in 2012 - Thrombocytopenia (HCC) Previous Surgical History PAST SURGICAL HISTORY Procedure Laterality Date - ANESTH, SECTION 01/22/2010 - SECTION HX 05/07/2013 - LEEP PROCEDURE ([employer] DE[facility])_*FL 2011 - PAST SURGICAL HISTORY OF 2018 nasal vessel cauterization-Dr. Chappell Family History FAMILY HISTORY Problem Relation Age of Onset - other (dementia) Mother 50 - GI Father 35 Chron's - Alcohol/Drug Maternal Grandmother - Breast Cancer Maternal Grandmother 60 - Alzheimer's Disease Maternal Grandmother may not have been alzheimer's, but dementia - Alcohol/Drug Maternal Grandfather - Diabetes Paternal Grandmother - Heart Paternal Grandmother - Alcohol/Drug Paternal Grandfather - Alcohol/Drug Sister Patient Allergies ALLERGIES No Known Allergies Current Medications Current Outpatient Prescriptions on File Prior to Visit: ferrous sulfate 325 mg (65 mg iron) tablet Take 1 tablet by mouth twice daily with meals. thiamine (VITAMIN B1) 100 mg tablet Take 1 tablet by mouth once daily. folic acid 1 mg tablet Take 1 tablet by mouth once daily. docusate sodium (COLACE) 100 mg capsule Take 1 capsule by mouth twice daily as needed for Constipation. sertraline (ZOLOFT) 100 mg tablet Take 1 tablet by mouth once daily. Vitamin with 29 mg Iron ( PLUS) 29 mg iron- 1 mg Take 1 tablet by mouth once daily. lactulose (DUPHALAC, CONSTULOSE) 10 gram/15 mL solution Take 15 mL by mouth twice daily. SUMAtriptan (IMITREX) 100 mg tablet Take 100 mg by mouth as needed. hydrOXYzine pamoate (VISTARIL) 50 mg capsule Take 1 capsule by mouth three times daily as needed. Omeprazole 40 mg capsule Take 1 capsule by mouth once daily. metFORMIN (GLUCOPHAGE) 500 mg tablet Take 1 tablet by mouth twice daily with meals. traZODone (DESYREL) 50 mg tablet Take 1 tablet by mouth daily at bedtime. ibuprofen (MOTRIN) 800 mg tablet Take 800 mg by mouth every 6 hours as needed. No current facility-administered medications on file prior to visit. Social History Social History Marital status: Spouse name: Years of education: Number of children: 2 Social History Main Topics Smoking status: Former Smoker Packs/day: 0.50 Years: 24.00 Types: Cigarettes Quit date: 05/06/2017 Smokeless tobacco: Never Used Alcohol use: No Comment: Recovering alcoholic Drug use: No Sexual activity: Yes control/protection: Injection Review of Symptoms REVIEW OF SYSTEMS GENERAL: No weight loss, malaise or fevers RESPIRATORY: Negative for cough, hemoptysis, wheezing, COPD, dyspnea or shortness of breath CARDIOVASCULAR: Negative for chest pain, leg swelling, hypertension, CHF or palpitations GI: No nausea, vomiting, or diarrhea SKIN: Negative for lesions, rash, and itching EXAM: BP 130/84 Pulse 84 Temp 36.2 ?C (97.1 ?F) (Tympanic) Resp 16 Wt 77.1 kg (170 lb) BMI 27.23 kg/m? General Appearance: Well appearing, alert, in no acute distress, well-hydrated, well nourished.. Skin: Skin color, texture, turgor normal, no suspicious rashes or lesions. Lungs: Lungs clear to auscultation. No wheezing, rhonchi, rales. Heart: RRR without murmur, gallop, or rubs. No ectopy. Abdomen: Abdomen soft, non-tender. Bowel sounds normal. Positive findings: hepatomegaly, liver edge palpable 2 cm below costal margin, splenomegaly. Extremities: No deformities, edema, skin discoloration, clubbing or cyanosis. Good capillary refill. . Health Maintenance List DILATED RETINAL EXAM due on 12/05/1987 DTAP,TDAP,TD(1 - Tdap) due on 1996 TWO PNEUMOVAX 5 YEARS APART PRIOR TO AGE 65(1) due on 1996 ADULT PREVNAR-13 due on 1996 PAP EVERY 5 YEARS due on 12/05/2007 HPV EVERY 5 YEARS due on 12/05/2007 MAMMOGRAM due on 2017 INFLUENZA(1) due on 12/16/2017 DIABETES MED ADHERENCE due on 01/15/2018 HBA1C due on 03/23/2018 DIABETIC FOOT EXAM due on 07/04/2018 URINE ALBUMIN:CREATININE RATIO due on 09/21/2018 LDL CHOLESTEROL due on 09/21/2018 ANNUAL PCP TEAM CHRONIC DISEASE VISIT due on 12/19/2018 Data reviewed Component Latest Ref Rng AND Units 11/17/2017 12/19/201701/02/2018 WBC 3.70 - 11.00 k/uL 4.16 RBC 3.90 - 5.20 m/uL 4.47 Hemoglobin 11.5 - 15.5 g/dL 12.0 Hematocrit 36.0 - 46.0 % 38.1 MCV 80.0 - 100.0 fL 85.2 MCH 26.0 - 34.0 pG 26.8 MCHC 30.5 - 36.0 g/dL 31.5 RDW-CV 11.5 - 15.0 % 17.2 (H) Platelet Count 150 - 400 k/uL 88 (L) MPV 9.0 - 12.7 fL 11.5 Neut% % 54.3 Abs Neut (ANC) 1.45 - 7.50 k/uL 2.25 Lymph% % 32.2 Abs Lymph 1.00 - 4.00 k/uL 1.34 [place]% % 8.4 Abs [place] <0.87 k/uL 0.35 Eosin% % 4.6 Abs Eosin <0.46 k/uL 0.19 Baso% % 0.5 Abs Baso <0.11 k/uL <0.03 Nucleated Reds 0 /100 WBC 0.0 Absolute nRBC <0.01 k/uL <0.01 Diff Type Auto Diff Protein, Total 6.3 - 8.0 g/dL 7.3 7.4 Albumin 3.9 - 4.9 g/dL 4.0 4.1 Calcium 8.5 - 10.2 mg/dL 9.5 9.6 Bilirubin, Total 0.2 - 1.3 mg/dL 0.8 0.9 Alkaline Phosphatase 32 - 117 U/L 106 117 AST 13 - 35 U/L 38 (H) 33 Glucose 74 - 99 mg/dL 145 (H) 121 (H) BUN 7 - 21 mg/dL 14 10 Creatinine 0.58 - 0.96 mg/dL 0.57 (L) 0.61 Sodium 136 - 144 mmol/L 143 141 Potassium 3.7 - 5.1 mmol/L 4.1 4.1 Chloride 97 - 105 mmol/L 107 (H) 106 (H) CO2 22 - 30 mmol/L 21 (L) 22 Anion Gap 9 - 18 mmol/L 15 13 ALT 7 - 38 U/L 27 29 eGFR- >60 >60 eGFR-All Other Races . >60 >60 WBC, [place] 3.70 - 11.00 k/uL 4.51 RBC, [place] 3.90 - 5.20 m/uL 4.18 Hemoglobin, [place] 11.5 - 15.5 g/dL 11.1 (L) Hematocrit, [place] 36.0 - 46.0 % 34.6 (L) MCV, [place] 80.0 - 100.0 fL 82.8 MCH, [place] 26.0 - 34.0 pg 26.6 MCHC, [place] 30.5 - 36.0 g/dL 32.1 RDW, [place] 11.5 - 15.0 % 15.3 (H) Platelet Cnt, [place] 150 - 400 k/uL 106 (L) MPV, [place] 9.0 - 12.7 fL 10.3 Absol Gran Count 1.45 - 7.50 k/uL 2.70 Iron 41 - 186 ug/dL 48 TIBC 232 - 386 ug/dL 440 (H) Transferrin Saturation 15 - 57 % 11 (L) PT Sec 9.7 - 13.0 sec 11.7 PT INR 0.9 - 1.3 1.1 Retic % 0.4 - 2.0 % 1.1 Abs Retic 0.0180 - 0.1000 M/uL 0.047 Alpha 1 Antitryp Phenotype M1M2 Alpha 1 Antitryp Serum 90 - 200 mg/dL 166 Ammonia 11 - 51 umol/L 74 (H) 32 Ethanol <11 mg/dL <11 Ferritin 14.7 - 205.1 ng/mL 18.1 Folate >4.7 ng/mL >20.0 MMA 79 - 376 nmol/L 110 Vitamin B12 232 - 1,245 pg/mL 656 Vitamin B6, Plasma 20.0 - 125.0 nmol/L 58.0 GGT 6 - 46 U/L 245 (H) AFP <11 ng/mL 7.4 Ceruloplasmin 16 - 45 mg/dL 25 Smooth Muscle Ab Panel Negative Negative Hep A Ab, Total Negative Negative ASSESSMENT/PLAN: 1. Alcoholism in remission (HCC) - ICD9: 303.93, ICD10: F10.21 (primary diagnosis) Sober 74 days. Advised continued abstinence from ETOH. Continue thiamine and folate. Recheck in 3 months. 2. Cirrhosis of liver without ascites, unspecified hepatic cirrhosis type (HCC) - ICD9: 571.5, ICD10: K74.60 Recommendations per hepatology. Will follow up EGD results. - COMP METABOLIC PANEL - CBC + DIFF 3. Hyperammonemia (HCC) - ICD9: 270.6, ICD10: E72.20 Continue lactulose. Normal ammonia on last check. 4. Type 2 diabetes mellitus without complication, without long-term current use of insulin (HCC) - ICD9: 250.00, ICD10: E11.9 Controlled. - Continue current medications - Ophthalmology referral for eval/management of diabetic eye changes - Encouraged regular aerobic exercise and weight loss - Follow up in 3 months, sooner should any other issues arise. - HGB A1C - COMP METABOLIC PANEL 5. Screening mammogram, encounter for - ICD9: V76.12, ICD10: Z12.31 - Set up for mammogram, yearly mammogram recommended - Follow up for annual exam in one year. - JAI SCREENING 6. Need for vaccination - ICD9: V05.9, ICD10: Z23 - INFLUENZA VACCINE QUADRIVALENT AGE 3 YRS PLUS + IM - PNEUMOCOCCAL-13 VACCINE PCV-13 Ruben Lorenzo MD CNOV Observed: 01/10/2018 Status: COMPLETED Source: [place] 11:00 AM [facility] REPOSITORY Office Visit (FAMPWS) POLO ALVES ([id number]) 1975 F Date Time Provider Department 01/10/18 11:00 AM RUBEN LORENZO) FAMPWS During your visit today, we recorded the following information about you: Temperature Pulse Respiration Blood pressure 97.1 degrees 84/minute 16/minute 130/84 Weight 77.1 kg Ruben Lorenzo MD 01/10/2018 1:46 PM Signed Chief Complaint Patient presents with: F/U 3 Month HPI Polo Alves is a 42 year old female who presents here today for 3 month follow up. Since last OV, patient has followed up with hematology for pancytopenia felt to be related to her alcoholic cirrhosis. Obtained labs and recommended iron supplements and f/u with heptology. Seen by Dr. Hillman on 01/02 for cirrhosis who recommended continued cessation of alcohol, EGD, fibroscan, and blood work. F/u labs appear to be normal. EGD not performed as of yet, scheduled for 02/05. States that she has been abstinent from alcohol for total of 74 days. Taking thiamine, folate, and iron as recommended. Attending AA about once every couple weeks, has called her sober support when needed. Still getting urges occasionally, but feels she is getting help when she needs it. Has not had any recurrent bleeding symptoms, much improved since cessation of alcohol. Taking iron supplement without constipation. Using lactulose as prescribed for hyperammonemia. Taking metformin as prescribed for DM. Last A1C controlled. Denies worsening symptoms. Needs to schedule appointment with optho. Last pap was about [address] Ta office, was normal. F/u in 1 year. Will need to obtain records. Due for mammogram. Past medical history, appointments, medications, allergies reviewed. 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) - Anxiety - Diabetes mellitus, type II (HCC) - Elevated LFTs - Gallstones - GERD (gastroesophageal reflux disease) - Gestational diabetes mellitus - Hepatic steatosis - Hepatosplenomegaly - Hyperammonemia (HCC) - Insomnia - Pancytopenia (HCC) 07/05/2017 Dr. Bowen - Recurrent genital herpes simplex type 1 infection diagnosed in 2012 - Thrombocytopenia (HCC) Previous Surgical History PAST SURGICAL HISTORY Procedure Laterality Date - ANESTH, SECTION 01/22/2010 - SECTION HX 05/07/2013 - LEEP PROCEDURE ([employer] DEPT)_*FL 2011 - PAST SURGICAL HISTORY OF 2018 nasal vessel cauterization-Dr. Chappell Family History FAMILY HISTORY Problem Relation Age of Onset - other (dementia) Mother 50 - GI Father 35 Chron's - Alcohol/Drug Maternal Grandmother - Breast Cancer Maternal Grandmother 60 - Alzheimer's Disease Maternal Grandmother may not have been alzheimer's, but dementia - Alcohol/Drug Maternal Grandfather - Diabetes Paternal Grandmother - Heart Paternal Grandmother - Alcohol/Drug Paternal Grandfather - Alcohol/Drug Sister Patient Allergies ALLERGIES No Known Allergies Current Medications Current Outpatient Prescriptions on File Prior to Visit: ferrous sulfate 325 mg (65 mg iron) tablet Take 1 tablet by mouth twice daily with meals. thiamine (VITAMIN B1) 100 mg tablet Take 1 tablet by mouth once daily. folic acid 1 mg tablet Take 1 tablet by mouth once daily. docusate sodium (COLACE) 100 mg capsule Take 1 capsule by mouth twice daily as needed for Constipation. sertraline (ZOLOFT) 100 mg tablet Take 1 tablet by mouth once daily. Vitamin with 29 mg Iron ( PLUS) 29 mg iron- 1 mg Take 1 tablet by mouth once daily. lactulose (DUPHALAC, CONSTULOSE) 10 gram/15 mL solution Take 15 mL by mouth twice daily. SUMAtriptan (IMITREX) 100 mg tablet Take 100 mg by mouth as needed. hydrOXYzine pamoate (VISTARIL) 50 mg capsule Take 1 capsule by mouth three times daily as needed. Omeprazole 40 mg capsule Take 1 capsule by mouth once daily. metFORMIN (GLUCOPHAGE) 500 mg tablet Take 1 tablet by mouth twice daily with meals. traZODone (DESYREL) 50 mg tablet Take 1 tablet by mouth daily at bedtime. ibuprofen (MOTRIN) 800 mg tablet Take 800 mg by mouth every 6 hours as needed. No current facility-administered medications on file prior to visit. Social History Social History Marital status: Spouse name: Years of education: Number of children: 2 Social History Main Topics Smoking status: Former Smoker Packs/day: 0.50 Years: 24.00 Types: Cigarettes Quit date: 05/06/2017 Smokeless tobacco: Never Used Alcohol use: No Comment: Recovering alcoholic Drug use: No Sexual activity: Yes control/protection: Injection Review of Symptoms REVIEW OF SYSTEMS GENERAL: No weight loss, malaise or fevers RESPIRATORY: Negative for cough, hemoptysis, wheezing, COPD, dyspnea or shortness of breath CARDIOVASCULAR: Negative for chest pain, leg swelling, hypertension, CHF or palpitations GI: No nausea, vomiting, or diarrhea SKIN: Negative for lesions, rash, and itching EXAM: BP 130/84 Pulse 84 Temp 36.2 ?C (97.1 ?F) (Tympanic) Resp 16 Wt 77.1 kg (170 lb) BMI 27.23 kg/m? General Appearance: Well appearing, alert, in no acute distress, well-hydrated, well nourished.. Skin: Skin color, texture, turgor normal, no suspicious rashes or lesions. Lungs: Lungs clear to auscultation. No wheezing, rhonchi, rales. Heart: RRR without murmur, gallop, or rubs. No ectopy. Abdomen: Abdomen soft, non-tender. Bowel sounds normal. Positive findings: hepatomegaly, liver edge palpable 2 cm below costal margin, splenomegaly. Extremities: No deformities, edema, skin discoloration, clubbing or cyanosis. Good capillary refill. . Health Maintenance List DILATED RETINAL EXAM due on 12/05/1987 DTAP,TDAP,TD(1 - Tdap) due on 1996 TWO PNEUMOVAX 5 YEARS APART PRIOR TO AGE 65(1) due on 1996 ADULT PREVNAR-13 due on 1996 PAP EVERY 5 YEARS due on 12/05/2007 HPV EVERY 5 YEARS due on 12/05/2007 MAMMOGRAM due on 2017 INFLUENZA(1) due on 12/16/2017 DIABETES MED ADHERENCE due on 01/15/2018 HBA1C due on 03/23/2018 DIABETIC FOOT EXAM due on 07/04/2018 URINE ALBUMIN:CREATININE RATIO due on 09/21/2018 LDL CHOLESTEROL due on 09/21/2018 ANNUAL PCP TEAM CHRONIC DISEASE VISIT due on 12/19/2018 Data reviewed Component Latest Ref Rng AND Units 11/17/2017 12/19/2017 01/02/2018 WBC 3.70 - 11.00 k/uL 4.16 RBC 3.90 - 5.20 m/uL 4.47 Hemoglobin 11.5 - 15.5 g/dL 12.0 Hematocrit 36.0 - 46.0 % 38.1 MCV 80.0 - 100.0 fL 85.2 MCH 26.0 - 34.0 pG 26.8 MCHC 30.5 - 36.0 g/dL 31.5 RDW-CV 11.5 - 15.0 % 17.2 (H) Platelet Count 150 - 400 k/uL 88 (L) MPV 9.0 - 12.7 fL 11.5 Neut% % 54.3 Abs Neut (ANC) 1.45 - 7.50 k/uL 2.25 Lymph% % 32.2 Abs Lymph 1.00 - 4.00 k/uL 1.34 [place]% % 8.4 Abs [place] <0.87 k/uL 0.35 Eosin% % 4.6 Abs Eosin <0.46 k/uL 0.19 Baso% % 0.5 Abs Baso <0.11 k/uL <0.03 Nucleated Reds 0 /100 WBC 0.0 Absolute nRBC <0.01 k/uL <0.01 Diff Type Auto Diff Protein, Total 6.3 - 8.0 g/dL 7.3 7.4 Albumin 3.9 - 4.9 g/dL 4.0 4.1 Calcium 8.5 - 10.2 mg/dL 9.5 9.6 Bilirubin, Total 0.2 - 1.3 mg/dL 0.8 0.9 Alkaline Phosphatase 32 - 117 U/L 106 117 AST 13 - 35 U/L 38 (H) 33 Glucose 74 - 99 mg/dL 145 (H) 121 (H) BUN 7 - 21 mg/dL 14 10 Creatinine 0.58 - 0.96 mg/dL 0.57 (L) 0.61 Sodium 136 - 144 mmol/L 143 141 Potassium 3.7 - 5.1 mmol/L 4.1 4.1 Chloride 97 - 105 mmol/L 107 (H) 106 (H) CO2 22 - 30 mmol/L 21 (L) 22 Anion Gap 9 - 18 mmol/L 15 13 ALT 7 - 38 U/L 27 29 eGFR- >60 >60 eGFR-All Other Races . >60 >60 WBC, [place] 3.70 - 11.00 k/uL 4.51 RBC, [place] 3.90 - 5.20 m/uL 4.18 Hemoglobin, [place] 11.5 - 15.5 g/dL 11.1 (L) Hematocrit, [place] 36.0 - 46.0 % 34.6 (L) MCV, [place] 80.0 - 100.0 fL 82.8 MCH, [place] 26.0 - 34.0 pg 26.6 MCHC, [place] 30.5 - 36.0 g/dL 32.1 RDW, [place] 11.5 - 15.0 % 15.3 (H) Platelet Cnt, [place] 150 - 400 k/uL 106 (L) MPV, [place] 9.0 - 12.7 fL 10.3 Absol Gran Count 1.45 - 7.50 k/uL 2.70 Iron 41 - 186 ug/dL 48 TIBC 232 - 386 ug/dL 440 (H) Transferrin Saturation 15 - 57 % 11 (L) PT Sec 9.7 - 13.0 sec 11.7 PT INR 0.9 - 1.3 1.1 Retic % 0.4 - 2.0 % 1.1 Abs Retic 0.0180 - 0.1000 M/uL 0.047 Alpha 1 Antitryp Phenotype M1M2 Alpha 1 Antitryp Serum 90 - 200 mg/dL 166 Ammonia 11 - 51 umol/L 74 (H) 32 Ethanol <11 mg/dL <11 Ferritin 14.7 - 205.1 ng/mL 18.1 Folate >4.7 ng/mL >20.0 MMA 79 - 376 nmol/L 110 Vitamin B12 232 - 1,245 pg/mL 656 Vitamin B6, Plasma 20.0 - 125.0 nmol/L 58.0 GGT 6 - 46 U/L 245 (H) AFP <11 ng/mL 7.4 Ceruloplasmin 16 - 45 mg/dL 25 Smooth Muscle Ab Panel Negative Negative Hep A Ab, Total Negative Negative ASSESSMENT/PLAN: 1. Alcoholism in remission (HCC) - ICD9: 303.93, ICD10: F10.21 (primary diagnosis) Sober 74 days. Advised continued abstinence from ETOH. Continue thiamine and folate. Recheck in 3 months. 2. Cirrhosis of liver without ascites, unspecified hepatic cirrhosis type (HCC) - ICD9: 571.5, ICD10: K74.60 Recommendations per hepatology. Will follow up EGD results. - COMP METABOLIC PANEL - CBC + DIFF 3. Hyperammonemia (HCC) - ICD9: 270.6, ICD10: E72.20 Continue lactulose. Normal ammonia on last check. 4. Type 2 diabetes mellitus without complication, without long-term current use of insulin (HCC) - ICD9: 250.00, ICD10: E11.9 Controlled. - Continue current medications - Ophthalmology referral for eval/management of diabetic eye changes - Encouraged regular aerobic exercise and weight loss - Follow up in 3 months, sooner should any other issues arise. - HGB A1C - COMP METABOLIC PANEL 5. Screening mammogram, encounter for - ICD9: V76.12, ICD10: Z12.31 - Set up for mammogram, yearly mammogram recommended - Follow up for annual exam in one year. - JAI SCREENING 6. Need for vaccination - ICD9: V05.9, ICD10: Z23 - INFLUENZA VACCINE QUADRIVALENT AGE 3 YRS PLUS + IM - PNEUMOCOCCAL-13 VACCINE PCV-13 Ruben Lorenzo MD Referring Provider: RUBEN LORENZO) [[id number]] Allergies As of Date: 01/10/2018 (No Known Allergies) Date Reviewed: 01/10/2018 Reviewed by: Juan Mckenzie Ma - Fully Assessed Reason for Visit: F/U 3 Month [443] Imm/Inj [58] Cmt: Flu Vaccine Reason For Visit History Recorded Primary Visit Diagnosis:Alcoholism in remission (HCC) [F10.21] Other Visit Diagnoses:Cirrhosis of liver without ascites, unspecified hepatic cirrhosis type (HCC) [K74.60] Hyperammonemia (HCC) [E72.20] Type 2 diabetes mellitus without complication, without long-term current use of insulin (HCC) [E11.9] Screening mammogram, encounter for [Z12.31] Need for vaccination [Z23] Order(s):HGB A1C [MLPBL7T] Order #: [id number] FUTURE INFLUENZA VACCINE QUADRIVALENT AGE 3 YRS PLUS + IM [[id number]] Order #: [id number] PNEUMOCOCCAL-13 VACCINE PCV-13 [[id number]] Order #: [id number] JAI SCREENING [[id number]] Order #: [id number] FUTURE COMP METABOLIC PANEL [SQCMP] Order #: [id number] FUTURE CBC + DIFF [SQCBCDIF] Order #: [id number] FUTURE Prescriptions as of 01/10/2018 Sig: FERROUS SULFATE 325 MG (65 MG* Take 1 tablet by mouth twice * THIAMINE HCL (VITAMIN B1) 100* Take 1 tablet by mouth once d* FOLIC ACID 1 MG TABLET Take 1 tablet by mouth once d* DOCUSATE SODIUM 100 MG CAPSULE Take 1 capsule by mouth twice* SERTRALINE 100 MG TABLET Take 1 tablet by mouth once d* VITAMINS WITH CALCIU* Take 1 tablet by mouth once d* LACTULOSE 10 GRAM/15 ML ORAL * Take 15 mL by mouth twice clifford* SUMATRIPTAN 100 MG TABLET Take 100 mg by mouth as neede* HYDROXYZINE PAMOATE 50 MG CAP* Take 1 capsule by mouth three* OMEPRAZOLE 40 MG CAPSULE,MARIBEL* Take 1 capsule by mouth once * METFORMIN 500 MG TABLET Take 1 tablet by mouth twice * TRAZODONE 50 MG TABLET Take 1 tablet by mouth daily * IBUPROFEN 800 MG TABLET Take 800 mg by mouth every 6 * Problem List As Of Date 01/10/2018 Noted Resolved Hyperammonemia (HCC) [E72.20] Diabetes mellitus, type II (HCC) [E11.9] Prediabetes [R73.03] 06/08/2017 Pancytopenia (HCC) [D61.818] INVALID FOR* Anxiety [F41.9] GERD (gastroesophageal reflux disease) [K21.9] Hepatosplenomegaly [R16.2] Alcoholism in remission (HCC) [F10.21] Cirrhosis of liver without ascites (HCC) [K74.6*INVALID FOR* Encounter Status:Closed by RUBEN LORENZO MD on 01/10/18 CERULOPLASMIN Collected: 01/02/2018 Status: F Source: [place] 10:42 AM [facility] REPOSITORY TYPE CODE TESTS RESULT OUT OF REFERENCE UNITS RANGE LAB CERULO 16-45 mg/dL Ceruloplasmin 25 Performed By: #### CERULO, AHAVT, SMOOTH #### [facility] [address] [address] #### A1APHE #### [facility] [address] [place] [address] [phone] HEPATITIS A AB TOTAL Collected: 01/02/2018 Status: F Source: [place] 10:42 AM [facility] REPOSITORY TYPE CODE TESTS RESULT OUT OF REFERENCE UNITS RANGE LAB AHAVT Negative Hepatitis A Ab Negative Total Performed By: #### CERULO, AHAVT, SMOOTH #### [facility] [address] [address] #### A1APHE #### [facility] [address] [place] [address] [phone] SMOOTH MUSCLE AB Collected: 01/02/2018 Status: F Source: [place] PNL 10:42 AM [facility] REPOSITORY TYPE CODE TESTS RESULT OUT OF REFERENCE UNITS RANGE LAB SMOOTH Negative Smooth Negative Muscle Ab Pnl Result Comment: Normal range : negative at a 1:20 serum dilution. Performed By: #### CERULO, AHAVT, SMOOTH #### [facility] [address] [address] #### A1APHE #### [facility] [address] [place] [address] [phone] ALPHA1 ANTITRY PHENO Collected: 01/02/2018 Status: F Source: [place] 10:42 AM [facility] REPOSITORY TYPE CODE TESTS RESULT OUT OF REFERENCE UNITS RANGE LAB A1ANTP Alpha1 Antitry M1M2 Phen Result Comment: (NOTE) The patient appears to have a normal phenotype. All M alleles (including subtypes M1, M2, and M3) produce normal serum concentrations of griif-4-zrlxvbey inhibitor and are not associated with clinical disease. Caution in interpretation is advised if the patient has been transfused within the previous 21 days. Performed by [facility], [address] [place] [address] [phone] [email or web address] [facility], Antwan Rivero MD, Lab. Director LAB A1ANTS 90-200 mg/dL Alpha1 Antitry 166 Serum Result Comment: (NOTE) To convert to umol/L, multiply mg/dL by 0.185 Performed By: #### CERULO, AHAVT, SMOOTH #### [facility] [address] [place] [id number] #### A1APHE #### [facility] [address] [place] [address] [phone] PROGRESS Observed: 01/02/2018 Status: COMPLETED Source: [place] 10:02 AM [facility] REPOSITORY HNO ID: [id number] Author: Kristian Hillman Service: (none) Author Type: Physician Type: Progress Notes Filed: 01/02/2018 10:11 AM Note Text: Consultation requested by Dr. Lorenzo for an opinion regarding cirrhosis. My final recommendations will be communicated back to the requesting physician by way of shared Medical record or letter to requesting physician via US mail. 42 year old mother of 2 (4 and 7) has very heavy alcohol intake. Has been in rehab. No alcohol x 60 days Dx of cirrhosis based on clinical grounds 1. low platelets (since at least 2016) US imaging elevated ammonia (although patient states she had no AMS) now normal on lactulose Never EGD Serol screen: neg hep profile; no elevated irons denies ascites, edema, GIB, overt HE (see above) Liver function tests normal PAST MEDICAL HISTORY Diagnosis Date - Abnormal Pap smear of cervix 2011 - Alcoholism in remission (HCC) - Anxiety - Diabetes mellitus, type II (HCC) - Elevated LFTs - Gallstones - GERD (gastroesophageal reflux disease) - Gestational diabetes mellitus - Hepatic steatosis - Hepatosplenomegaly - Hyperammonemia (HCC) - Insomnia - Pancytopenia (HCC) 07/05/2017 - Recurrent genital herpes simplex type 1 infection diagnosed in 2012 - Thrombocytopenia (HCC) PAST SURGICAL HISTORY Procedure Laterality Date - ANESTH, SECTION 01/22/2010 - SECTION HX 05/07/2013 - LEEP PROCEDURE ([employer])_*FL 2011 - PAST SURGICAL HISTORY OF 2017 nasal vessel cauterization-Dr. Chappell Current Outpatient Prescriptions: ferrous sulfate 325 mg (65 mg iron) tablet Take 1 tablet by mouth twice daily with meals. thiamine (VITAMIN B1) 100 mg tablet Take 1 tablet by mouth once daily. folic acid 1 mg tablet Take 1 tablet by mouth once daily. docusate sodium (COLACE) 100 mg capsule Take 1 capsule by mouth twice daily as needed for Constipation. sertraline (ZOLOFT) 100 mg tablet Take 1 tablet by mouth once daily. Vitamin with 29 mg Iron ( PLUS) 29 mg iron- 1 mg Take 1 tablet by mouth once daily. lactulose (DUPHALAC, CONSTULOSE) 10 gram/15 mL solution Take 15 mL by mouth twice daily. SUMAtriptan (IMITREX) 100 mg tablet Take 100 mg by mouth as needed. hydrOXYzine pamoate (VISTARIL) 50 mg capsule Take 1 capsule by mouth three times daily as needed. Omeprazole 40 mg capsule Take 1 capsule by mouth once daily. metFORMIN (GLUCOPHAGE) 500 mg tablet Take 1 tablet by mouth twice daily with meals. traZODone (DESYREL) 50 mg tablet Take 1 tablet by mouth daily at bedtime. ibuprofen (MOTRIN) 800 mg tablet Take 800 mg by mouth every 6 hours as needed. No current facility-administered medications for this visit. Exam: BP 139/91 Pulse 78 Wt 75.3 kg (166 lb) BMI 26.59 kg/m? HEENT: neg lungs: clear cor: OK'abd: no mass or organ enlargemtn; no ascites extrem: no edema neuro: no asterixis ANT > 20 Impression; Well compensated cirrhosis MELD 7, CPS 5 or 6 Rec; continue alcohol avoidance serol screen EGD - she has not decided if she want banding done -will schedule with me in case she decides to have it done Fibroscan see in clinic in 4 months CNOV Observed: 01/02/2018 Status: COMPLETED Source: [place] 9:30 AM [facility] REPOSITORY Office Visit (GASTST) JOSELYNPOLO ([id number]) 1975 F Date Time Provider Department 01/02/18 9:30 AM KRISTIAN HILLMAN During your visit today, we recorded the following information about you: Pulse Blood pressure Weight 78/minute 139/91 75.3 kg Deanna Estrada Rosa 01/02/2018 9:37 AM Signed Pt is here as a new patient. Kristian Hillman MD [facility] 01/02/2018 10:11 AM Signed Consultation requested by Dr. Lorenzo for an opinion regarding cirrhosis. My final recommendations will be communicated back to the requesting physician by way of shared Medical record or letter to requesting physician via US mail. 42 year old mother of 2 (4 and 7) has very heavy alcohol intake. Has been in rehab. No alcohol x 60 days Dx of cirrhosis based on clinical grounds 1. low platelets (since at least 2015) US imaging elevated ammonia (although patient states she had no AMS) now normal on lactulose Never EGD Serol screen: neg hep profile; no elevated irons denies ascites, edema, GIB, overt HE (see above) Liver function tests normal PAST MEDICAL HISTORY Diagnosis Date - Abnormal Pap smear of cervix 2011 - Alcoholism in remission (HCC) - Anxiety - Diabetes mellitus, type II (HCC) - Elevated LFTs - Gallstones - GERD (gastroesophageal reflux disease) - Gestational diabetes mellitus - Hepatic steatosis - Hepatosplenomegaly - Hyperammonemia (HCC) - Insomnia - Pancytopenia (HCC) 07/05/2017 - Recurrent genital herpes simplex type 1 infection diagnosed in 2012 - Thrombocytopenia (HCC) PAST SURGICAL HISTORY Procedure Laterality Date - ANESTH, SECTION 01/22/2010 - SECTION HX 05/07/2013 - LEEP PROCEDURE ([employer] DE[employer])_*FL 2011 - PAST SURGICAL HISTORY OF 2018 nasal vessel cauterization-Dr. Chappell Current Outpatient Prescriptions: ferrous sulfate 325 mg (65 mg iron) tablet Take 1 tablet by mouth twice daily with meals. thiamine (VITAMIN B1) 100 mg tablet Take 1 tablet by mouth once daily. folic acid 1 mg tablet Take 1 tablet by mouth once daily. docusate sodium (COLACE) 100 mg capsule Take 1 capsule by mouth twice daily as needed for Constipation. sertraline (ZOLOFT) 100 mg tablet Take 1 tablet by mouth once daily. Vitamin with 29 mg Iron ( PLUS) 29 mg iron- 1 mg Take 1 tablet by mouth once daily. lactulose (DUPHALAC, CONSTULOSE) 10 gram/15 mL solution Take 15 mL by mouth twice daily. SUMAtriptan (IMITREX) 100 mg tablet Take 100 mg by mouth as needed. hydrOXYzine pamoate (VISTARIL) 50 mg capsule Take 1 capsule by mouth three times daily as needed. Omeprazole 40 mg capsule Take 1 capsule by mouth once daily. metFORMIN (GLUCOPHAGE) 500 mg tablet Take 1 tablet by mouth twice daily with meals. traZODone (DESYREL) 50 mg tablet Take 1 tablet by mouth daily at bedtime. ibuprofen (MOTRIN) 800 mg tablet Take 800 mg by mouth every 6 hours as needed. No current facility-administered medications for this visit. Exam: BP 139/91 Pulse 78 Wt 75.3 kg (166 lb) BMI 26.59 kg/m? HEENT: neg lungs: clear cor: OK'abd: no mass or organ enlargemtn; no ascites extrem: no edema neuro: no asterixis ANT > 20 Impression; Well compensated cirrhosis MELD 7, CPS 5 or 6 Rec; continue alcohol avoidance serol screen EGD - she has not decided if she want banding done -will schedule with me in case she decides to have it done Fibroscan see in clinic in 4 months Referring Provider: TRINI DOWNS ([facility]) [[id number]] Allergies As of Date: 01/02/2018 (No Known Allergies) Date Reviewed: 01/02/2018 Reviewed by: Deanna Estrada Ma - Fully Assessed Reason for Visit: New Patient [172] Primary Visit Diagnosis:Cirrhosis of liver without ascites, unspecified hepatic cirrhosis type (HCC) [K74.60] Order(s):DDI VIBRATION CONTROLLED TRANSIENT ELASTOGRAPHY (VCTE) [[id number]] Order #: [id number] FUTURE EGD BANDING [[id number]] Order #: [id number] FUTURE CERULOPLASMIN BLD [SQCERULO] Order #: [id number] FUTURE SMOOTH MUSCLE AB PNL SCRN [SQSMOOTH] Order #: [id number] FUTURE ALPHA 1 ANTITRYPSIN PHENOTYPE [[id number]] Order #: [id number] FUTURE HEP A AB TOTAL [SQAHAVT] Order #: [id number] FUTURE Prescriptions as of 01/02/2018 Sig: FERROUS SULFATE 325 MG (65 MG* Take 1 tablet by mouth twice * THIAMINE HCL (VITAMIN B1) 100* Take 1 tablet by mouth once d* FOLIC ACID 1 MG TABLET Take 1 tablet by mouth once d* DOCUSATE SODIUM 100 MG CAPSULE Take 1 capsule by mouth twice* SERTRALINE 100 MG TABLET Take 1 tablet by mouth once d* VITAMINS WITH CALCIU* Take 1 tablet by mouth once d* LACTULOSE 10 GRAM/15 ML ORAL * Take 15 mL by mouth twice clifford* SUMATRIPTAN 100 MG TABLET Take 100 mg by mouth as neede* HYDROXYZINE PAMOATE 50 MG CAP* Take 1 capsule by mouth three* OMEPRAZOLE 40 MG CAPSULE,MARIBEL* Take 1 capsule by mouth once * METFORMIN 500 MG TABLET Take 1 tablet by mouth twice * TRAZODONE 50 MG TABLET Take 1 tablet by mouth daily * IBUPROFEN 800 MG TABLET Take 800 mg by mouth every 6 * Problem List As Of Date 01/02/2018 Noted Resolved Hyperammonemia (HCC) [E72.20] Diabetes mellitus, type II (HCC) [E11.9] Prediabetes [R73.03] 06/08/2017 Pancytopenia (HCC) [D61.818] INVALID FOR* Anxiety [F41.9] GERD (gastroesophageal reflux disease) [K21.9] Hepatosplenomegaly [R16.2] Alcoholism in remission (HCC) [F10.21] Cirrhosis of liver without ascites (HCC) [K74.6*INVALID FOR* Visit Notes: >> Deanna Hassan Jan 02, 2018 9:37 AM Status: Signed Pt is here as a new patient. Follow-up and Disposition History Recorded Encounter Status:Closed by KRISTIAN HILLMAN MD on 01/02/18 AMMONIA Collected: 12/19/2017 Status: F Source: [place] 2:36 PM [facility] REPOSITORY TYPE CODE TESTS RESULT OUT OF REFERENCE UNITS RANGE LAB NH3 11-51 umol/L Ammonia 32 Performed By: #### NH3, CBCDIF, CMP #### [facility] [address] [address] CBC AND DIFFERENTIAL Collected: 12/19/2017 Status: F Source: [place] 2:36 PM [facility] REPOSITORY TYPE CODE TESTS RESULT OUT OF REFERENCE UNITS RANGE LAB WBC 3.70-11.00 k/uL WBC 4.16 LAB RBC 3.90-5.20 m/uL RBC 4.47 LAB HGB 11.5-15.5 g/dL Hemoglobin 12.0 LAB HCT 36.0-46.0 % Hematocrit 38.1 LAB MCV 80.0-100.0 fL MCV 85.2 LAB MCH 26.0-34.0 pG MCH 26.8 LAB MCHC 30.5-36.0 g/dL MCHC 31.5 LAB RDWCV 11.5-15.0 % RDW-CV High 17.2 LAB PLTCT 150-400 k/uL Low Platelet Count 88 Result Comment: No clot detected. LAB MPV 9.0-12.7 fL MPV 11.5 LAB ANEUT % Neut% 54.3 LAB AANEUT 1.45-7.50 k/uL Abs Neut 2.25 LAB ALYMP % Lymph% 32.2 LAB AALYMP 1.00-4.00 k/uL Abs Lymph 1.34 LAB AMONO % [place]% 8.4 LAB AAMONO <0.87 k/uL Abs [place] 0.35 LAB AEOS % Eosin% 4.6 LAB AAEOS <0.46 k/uL Abs Eosin 0.19 LAB ABASO % Baso% 0.5 LAB AABASO <0.11 k/uL Abs Baso <0.03 LAB AUNRBC 0 /100 WBC NRBCs 0.0 LAB ABNRBC <0.01 k/uL Absolute nRBC <0.01 LAB DTYP DTYPE Auto Diff Performed By: #### NH3, CBCDIF, CMP #### [facility] [address] [place], [place] [address] COMP METABOLIC PANEL Collected: 12/19/2017 Status: F Source: [place] 2:36 PM [facility] REPOSITORY TYPE CODE TESTS RESULT OUT OF REFERENCE UNITS RANGE LAB TP 6.3-8.0 g/dL Protein, Total 7.4 LAB ALB 3.9-4.9 g/dL Albumin 4.1 LAB CA 8.5-10.2 mg/dL Calcium, Total 9.6 LAB TBIL 0.2-1.3 mg/dL Bilirubin, Total 0.9 LAB ALKP 32-117 U/L Alkaline Phosphatase 117 LAB AST 13-35 U/L AST 33 LAB GLU 74-99 mg/dL Glucose High 121 Result Comment: The [place] [employer] (ADA) provides guidance for cutoff values for fasting glucose and random glucose. The ADA defines fasting as no caloric intake for at least 8 hours. Fas ting plasma glucose results between 100 to 125 mg/dL indicate increased risk for diabetes (prediabetes). Fasting plasma glucose results greater than or equal to 126 mg/dL meet the criteria for diagnosis of diabetes. In the absence of unequivocal hyperglycemia, results should be confirmed by repeat testing. In a patient with classic symptoms of hyperglycemia or hyperglycemic crisis, random plasma glucose results greater than or equal to 200 mg/dL meet the criteria for diagnosis of diabetes. Reference: Standards of Medical Care in Diabetes 2016, [place] [employer]. Diabetes Care. 2016.39(Suppl 1). LAB BUN 7-21 mg/dL BUN 10 LAB CRET 0.58-0.96 mg/dL Creatinine 0.61 LAB NA 136-144 mmol/L Sodium 141 LAB K 3.7-5.1 mmol/L Potassium 4.1 LAB CL 97-105 mmol/L Chloride High 106 LAB CO2 22-30 mmol/L CO2 22 LAB AGAP 9-18 mmol/L Anion Gap 13 LAB ALT 7-38 U/L ALT 29 LAB GFRAA eGFR- Amer. >60 LAB GFRNAA . eGFR-All Other Races >60 Result Comment: eGFR (Estimated GFR) Units of measure: mL/min/1.73 meters squared eGFR is derived from the reexpressed MDRD Study equation using the following parameters: serum creatinine, age, gender and race. The creatinine assay has been calibrated to be traceable to IDMS. An eGFR <60 mL/min/1.73m2 for >3 months is consistent with chronic kidney disease. Refer to KDOQI guidelines for clinical interpretation. In patients with unstable renal function, e.g. those with acute kidney injury, the eGFR may not accurately reflect actual GFR. Performed By: #### NH3, CBCDIF, CMP #### [facility] [address] [place], [place] [address] PROGRESS Observed: 12/19/2017 Status: COMPLETED Source: [place] 1:50 PM [facility] REPOSITORY HNO ID: [id number] Author: Trini (Reheater Helper) Podlogar Service: (none) Author Type: Nurse Practitioner Type: Progress Notes Filed: 12/22/2017 7:39 AM Note Text: 12/19/2017 Patient presents with: one month follow up SUBJECTIVE: This is a 42 year old that is here today for Above Complaints. Alcoholism in remission: 52 days sober. Going to AA as much as possible. No other counseling at this time. Not taking thiamine of folate. Taking lactulose as prescribed and tolerating. Migraines: Reports seems to be getting more often. Intensity not as bad as in the past. Getting about 2-3 a month,imitrex doesn't seem to help. usually located over one eye and described as pulsating. Some relief with motrin. No aggravating features. Positive for aura of hissing and funky sound prior to getting. Positive for light sensitivity and nausea. Reports does not get the left sided numbness she has had in the past. Denies fevers, chills, visual disturbances, slurred speech, confusion, extremity numbness, tingling, and weakness. Anxiety: feeling like she is having more anxiety. Zoloft seemed to help in the beginning but not as much in the past week. No side effects from starting zoloft Denies new stressors, insomnia, racing thoughts, depressed moods, SI, or HI. Pancytopenia: Less nose bleeds and bleeding gums. Saw Dr. Bowen on 11/17/2017. Labs and liver US completed- reports she has not heard about test results from him. IMPRESSION: STABLE SPLENOMEGALY AND BORDERLINE HEPATOMEGALY CHOLELITHIASIS WITHOUT OTHER FINDINGS OF ACUTE CHOLECYSTITIS COMMON DUCT NOT DEFINITIVELY IDENTIFIED BUT NO SUGGESTION OF BILIARY DILATION Tool Technician: TREASURE ? Transcribe Date/Time: Nov ?2017 ?3:32P Dictated by : SANDRA THAPA MD This examination was interpreted and the report reviewed and electronically signed by: SANDRA THAPA MD on Nov ?3:37PM ?EST Component Latest Ref Rng AND Units 11/17/2017 MCHC 30.5 - 36.0 g/dL RDW-CV 11.5 - 15.0 % Platelet Count 150 - 400 k/uL MPV 9.0 - 12.7 fL Neut% % Abs Neut (ANC) 1.45 - 7.50 k/uL Lymph% % Abs Lymph 1.00 - 4.00 k/uL [place]% % Abs [place] <0.87 k/uL Eosin% % Abs Eosin <0.46 k/uL Baso% % Abs Baso <0.11 k/uL Nucleated Reds 0 /100 WBC Absolute nRBC <0.01 k/uL Diff Type Protein, Total 6.3 - 8.0 g/dL 7.3 Albumin 3.9 - 4.9 g/dL 4.0 Calcium 8.5 - 10.2 mg/dL 9.5 Bilirubin, Total 0.2 - 1.3 mg/dL 0.8 Alkaline Phosphatase 32 - 117 U/L 106 AST 13 - 35 U/L 38 (H) Glucose 74 - 99 mg/dL 145 (H) BUN 7 - 21 mg/dL 14 Creatinine 0.58 - 0.96 mg/dL 0.57 (L) Sodium 136 - 144 mmol/L 143 Potassium 3.7 - 5.1 mmol/L 4.1 Chloride 97 - 105 mmol/L 107 (H) CO2 22 - 30 mmol/L 21 (L) Anion Gap 9 - 18 mmol/L 15 ALT 7 - 38 U/L 27 eGFR- >60 eGFR-All Other Races . >60 WBC, [place] 3.70 - 11.00 k/uL 4.51 RBC, [place] 3.90 - 5.20 m/uL 4.18 Hemoglobin, [place] 11.5 - 15.5 g/dL 11.1 (L) Hematocrit, [place] 36.0 - 46.0 % 34.6 (L) MCV, [place] 80.0 - 100.0 fL 82.8 MCH, [place] 26.0 - 34.0 pg 26.6 MCHC, [place] 30.5 - 36.0 g/dL 32.1 RDW, [place] 11.5 - 15.0 % 15.3 (H) Platelet Cnt, [place] 150 - 400 k/uL 106 (L) MPV, [place] 9.0 - 12.7 fL 10.3 Absol Gran Count 1.45 - 7.50 k/uL 2.70 Iron 41 - 186 ug/dL 48 TIBC 232 - 386 ug/dL 440 (H) Transferrin Saturation 15 - 57 % 11 (L) PT Sec 9.7 - 13.0 sec 11.7 PT INR 0.9 - 1.3 1.1 Retic % 0.4 - 2.0 % 1.1 Abs Retic 0.0180 - 0.1000 M/uL 0.047 Ammonia 11 - 51 umol/L 74 (H) Ethanol <11 mg/dL <11 Ferritin 14.7 - 205.1 ng/mL 18.1 Folate >4.7 ng/mL >20.0 MMA 79 - 376 nmol/L 110 Vitamin B12 232 - 1,245 pg/mL 656 Vitamin B6, Plasma 20.0 - 125.0 nmol/L 58.0 GGT 6 - 46 U/L 245 (H) AFP <11 ng/mL 7.4 PAST MEDICAL HISTORY Diagnosis Date - Abnormal Pap smear of cervix 2011 - Alcoholism in remission (HCC) - Anxiety - Diabetes mellitus, type II (HCC) - Elevated LFTs - Gallstones - GERD (gastroesophageal reflux disease) - Gestational diabetes mellitus - Hepatic steatosis - Hepatosplenomegaly - Hyperammonemia (HCC) - Insomnia - Pancytopenia (HCC) 07/05/2017 - Recurrent genital herpes simplex type 1 infection diagnosed in 2012 - Thrombocytopenia (HCC) ALLERGIES Patient has no known allergies. MEDICATIONS Current Outpatient Prescriptions: Vitamin with 29 mg Iron ( PLUS) 29 mg iron- 1 mg Take 1 tablet by mouth once daily. lactulose (DUPHALAC, CONSTULOSE) 10 gram/15 mL solution Take 15 mL by mouth twice daily. SUMAtriptan (IMITREX) 100 mg tablet Take 100 mg by mouth as needed. hydrOXYzine pamoate (VISTARIL) 50 mg capsule Take 1 capsule by mouth three times daily as needed. sertraline (ZOLOFT) 50 mg tablet Take 1 tablet by mouth once daily. Omeprazole 40 mg capsule Take 1 capsule by mouth once daily. metFORMIN (GLUCOPHAGE) 500 mg tablet Take 1 tablet by mouth twice daily with meals. traZODone (DESYREL) 50 mg tablet Take 1 tablet by mouth daily at bedtime. ibuprofen (MOTRIN) 800 mg tablet Take 800 mg by mouth every 6 hours as needed. No current facility-administered medications for this visit. Medications and allergies reviewed by this provider. SOCIAL HISTORY Social History Marital status: Spouse name: Years of education: Number of children: 2 Social History Main Topics Smoking status: Former Smoker Packs/day: 0.50 Years: 24.00 Types: Cigarettes Quit date: 05/06/2017 Smokeless tobacco: Never Used Alcohol use: No Comment: Recovering alcoholic Drug use: No Sexual activity: Yes control/protection: Injection REVIEW OF SYSTEMS GENERAL: No weight loss, malaise or fevers NECK: Negative for lumps, goiter, pain and significant neck swelling RESPIRATORY: Negative for cough, hemoptysis, wheezing, COPD, dyspnea or shortness of breath CARDIOVASCULAR: Negative for chest pain, leg swelling, hypertension, CHF or palpitations GI: No nausea, vomiting, or diarrhea SKIN: Negative for lesions, rash, and itching PSYCH: See HPI All other reviewed and negative other than HPI. OBJECTIVE: BP 110/70 (BP Site: Right Arm, BP Position: Sitting, BP Cuff Size: Regular Adult) Pulse 86 Wt 74.9 kg (165 lb 1.9 oz) BMI 26.45 kg/m? . Vital signs reviewed by this provider. APPEARANCE Well appearing, alert, in no acute distress, well-hydrated, well nourished. EYES PERRLA, conjunctiva and sclera normal. HEART RRR with normal S1 and S2, no murmurs, no gallops, no JVD appreciated LUNG clear to auscultation ABDOMEN bowel sounds normoactive, no bruits, soft, non-tender, non-distended, without organomegaly or palpable masses, no tenderness to palpation EXTREMITIES Extremities normal, No deformities, No skin discoloration, No edema and Normal pulses bilaterally. NEURO Awake, alert and oriented x 3, Cranial nerves II-XII grossly intact, Reflexes symmetrical, Normal gait, No involuntary motions. and negative findings: mental status intact, gait, including heel, toe, and tandem walking normal, muscle tone normal, muscle strength normal, reflexes normal and symmetric, plantar response downgoing bilaterally SKIN Skin color, texture, turgor normal, no suspicious rashes or lesions to exposed skin. PSYCH: Posture and motor behavior: normal posture and motor behavior Dress, grooming, personal hygiene: normal dress and grooming Facial expression: smiling and good eye contact Speech: normal speech Mood: cheerful Coherency and relevance of thought: normal thought processes Memory: normal memory ASSESSMENT/PLAN: 1. Anxiety - ICD9: 300.00, ICD10: F41.9 (primary diagnosis) - will increase to zoloft to 100 mg daily - encouraged use of vistaril as needed- no driving while taking - discussed the importance of counseling along with medication for goo outcome- willing to go - CONSULT TO PSYCHOLOGY - follow-up with Dr. Lorenzo on January 10 2. Hyperammonemia (HCC) - ICD9: 270.6, ICD10: E72.20 - ammonia level today - CONSULT TO HEPATOLOGY 3. Hepatosplenomegaly - ICD9: 571.8, ICD10: R16.2 - CONSULT TO HEPATOLOGY 4. Alcoholism in remission (HCC) - ICD9: 303.93, ICD10: F10.21 - doing well- sticking with AA - 52 days sober - AMMONIA BLD - COMP METABOLIC PANEL - CONSULT TO HEPATOLOGY 5. Thrombocytopenia (HCC) - ICD9: 287.5, ICD10: D69.6 - follow-up with Dr. Bowen as recommended and hepatology - CBC + DIFF Trini Downs, INTERIOR DESIGN COORDINATOR.ACID PUMPER Prescription instructions reviewed with patient as applicable. Patient advised if symptoms do not improve or if symptoms worsen sooner, to contact their primary care physician. Potential red flag symptoms discussed with the patient. Reviewed appropriate action plan to take if red flag symptoms occur. Patient agreeable to treatment plan. CNOV Observed: 12/19/2017 Status: COMPLETED Source: [place] 1:40 PM [facility] REPOSITORY Office Visit (FAMPWS) POLO ALVES ([id number]) 1975 F Date Time Provider Department 12/19/17 1:40 PM TRINI DOWNS CNP During your visit today, we recorded the following information about you: Pulse Blood pressure Weight 86/minute 110/70 74.9 kg Trini Downs APRN.CNP 12/22/2017 7:39 AM Signed 12/19/2017 Patient presents with: one month follow up SUBJECTIVE: This is a 42 year old that is here today for Above Complaints. Alcoholism in remission: 52 days sober. Going to AA as much as possible. No other counseling at this time. Not taking thiamine of folate. Taking lactulose as prescribed and tolerating. Migraines: Reports seems to be getting more often. Intensity not as bad as in the past. Getting about 2-3 a month,imitrex doesn't seem to help. usually located over one eye and described as pulsating. Some relief with motrin. No aggravating features. Positive for aura of hissing and funky sound prior to getting. Positive for light sensitivity and nausea. Reports does not get the left sided numbness she has had in the past. Denies fevers, chills, visual disturbances, slurred speech, confusion, extremity numbness, tingling, and weakness. Anxiety: feeling like she is having more anxiety. Zoloft seemed to help in the beginning but not as much in the past week. No side effects from starting zoloft Denies new stressors, insomnia, racing thoughts, depressed moods, SI, or HI. Pancytopenia: Less nose bleeds and bleeding gums. Saw Dr. Bowen on 11/17/2017. Labs and liver US completed- reports she has not heard about test results from him. IMPRESSION: STABLE SPLENOMEGALY AND BORDERLINE HEPATOMEGALY CHOLELITHIASIS WITHOUT OTHER FINDINGS OF ACUTE CHOLECYSTITIS COMMON DUCT NOT DEFINITIVELY IDENTIFIED BUT NO SUGGESTION OF BILIARY DILATION Tool Technician: PSCB ? Transcribe Date/Time: Nov ?3:32P Dictated by : SANDRA THAPA MD This examination was interpreted and the report reviewed and electronically signed by: SANDRA THAPA MD on Nov ?3:37PM ?EST Component Latest Ref Rng AND Units 11/17/2017 MCHC 30.5 - 36.0 g/dL RDW-CV 11.5 - 15.0 % Platelet Count 150 - 400 k/uL MPV 9.0 - 12.7 fL Neut% % Abs Neut (ANC) 1.45 - 7.50 k/uL Lymph% % Abs Lymph 1.00 - 4.00 k/uL [place]% % Abs [place] <0.87 k/uL Eosin% % Abs Eosin <0.46 k/uL Baso% % Abs Baso <0.11 k/uL Nucleated Reds 0 /100 WBC Absolute nRBC <0.01 k/uL Diff Type Protein, Total 6.3 - 8.0 g/dL 7.3 Albumin 3.9 - 4.9 g/dL 4.0 Calcium 8.5 - 10.2 mg/dL 9.5 Bilirubin, Total 0.2 - 1.3 mg/dL 0.8 Alkaline Phosphatase 32 - 117 U/L 106 AST 13 - 35 U/L 38 (H) Glucose 74 - 99 mg/dL 145 (H) BUN 7 - 21 mg/dL 14 Creatinine 0.58 - 0.96 mg/dL 0.57 (L) Sodium 136 - 144 mmol/L 143 Potassium 3.7 - 5.1 mmol/L 4.1 Chloride 97 - 105 mmol/L 107 (H) CO2 22 - 30 mmol/L 21 (L) Anion Gap 9 - 18 mmol/L 15 ALT 7 - 38 U/L 27 eGFR- >60 eGFR-All Other Races . >60 WBC, [place] 3.70 - 11.00 k/uL 4.51 RBC, [place] 3.90 - 5.20 m/uL 4.18 Hemoglobin, [place] 11.5 - 15.5 g/dL 11.1 (L) Hematocrit, [place] 36.0 - 46.0 % 34.6 (L) MCV, [place] 80.0 - 100.0 fL 82.8 MCH, [place] 26.0 - 34.0 pg 26.6 MCHC, [place] 30.5 - 36.0 g/dL 32.1 RDW, [place] 11.5 - 15.0 % 15.3 (H) Platelet Cnt, [place] 150 - 400 k/uL 106 (L) MPV, [place] 9.0 - 12.7 fL 10.3 Absol Gran Count 1.45 - 7.50 k/uL 2.70 Iron 41 - 186 ug/dL 48 TIBC 232 - 386 ug/dL 440 (H) Transferrin Saturation 15 - 57 % 11 (L) PT Sec 9.7 - 13.0 sec 11.7 PT INR 0.9 - 1.3 1.1 Retic % 0.4 - 2.0 % 1.1 Abs Retic 0.0180 - 0.1000 M/uL 0.047 Ammonia 11 - 51 umol/L 74 (H) Ethanol <11 mg/dL <11 Ferritin 14.7 - 205.1 ng/mL 18.1 Folate >4.7 ng/mL >20.0 MMA 79 - 376 nmol/L 110 Vitamin B12 232 - 1,245 pg/mL 656 Vitamin B6, Plasma 20.0 - 125.0 nmol/L 58.0 GGT 6 - 46 U/L 245 (H) AFP <11 ng/mL 7.4 PAST MEDICAL HISTORY Diagnosis Date - Abnormal Pap smear of cervix 2011 - Alcoholism in remission (HCC) - Anxiety - Diabetes mellitus, type II (HCC) - Elevated LFTs - Gallstones - GERD (gastroesophageal reflux disease) - Gestational diabetes mellitus - Hepatic steatosis - Hepatosplenomegaly - Hyperammonemia (HCC) - Insomnia - Pancytopenia (HCC) 07/05/2017 - Recurrent genital herpes simplex type 1 infection diagnosed in 2012 - Thrombocytopenia (HCC) ALLERGIES Patient has no known allergies. MEDICATIONS Current Outpatient Prescriptions: Vitamin with 29 mg Iron ( PLUS) 29 mg iron- 1 mg Take 1 tablet by mouth once daily. lactulose (DUPHALAC, CONSTULOSE) 10 gram/15 mL solution Take 15 mL by mouth twice daily. SUMAtriptan (IMITREX) 100 mg tablet Take 100 mg by mouth as needed. hydrOXYzine pamoate (VISTARIL) 50 mg capsule Take 1 capsule by mouth three times daily as needed. sertraline (ZOLOFT) 50 mg tablet Take 1 tablet by mouth once daily. Omeprazole 40 mg capsule Take 1 capsule by mouth once daily. metFORMIN (GLUCOPHAGE) 500 mg tablet Take 1 tablet by mouth twice daily with meals. traZODone (DESYREL) 50 mg tablet Take 1 tablet by mouth daily at bedtime. ibuprofen (MOTRIN) 800 mg tablet Take 800 mg by mouth every 6 hours as needed. No current facility-administered medications for this visit. Medications and allergies reviewed by this provider. SOCIAL HISTORY Social History Marital status: Spouse name: Years of education: Number of children: 2 Social History Main Topics Smoking status: Former Smoker Packs/day: 0.50 Years: 24.00 Types: Cigarettes Quit date: 05/06/2017 Smokeless tobacco: Never Used Alcohol use: No Comment: Recovering alcoholic Drug use: No Sexual activity: Yes control/protection: Injection REVIEW OF SYSTEMS GENERAL: No weight loss, malaise or fevers NECK: Negative for lumps, goiter, pain and significant neck swelling RESPIRATORY: Negative for cough, hemoptysis, wheezing, COPD, dyspnea or shortness of breath CARDIOVASCULAR: Negative for chest pain, leg swelling, hypertension, CHF or palpitations GI: No nausea, vomiting, or diarrhea SKIN: Negative for lesions, rash, and itching PSYCH: See HPI All other reviewed and negative other than HPI. OBJECTIVE: BP 110/70 (BP Site: Right Arm, BP Position: Sitting, BP Cuff Size: Regular Adult) Pulse 86 Wt 74.9 kg (165 lb 1.9 oz) BMI 26.45 kg/m? . Vital signs reviewed by this provider. APPEARANCE Well appearing, alert, in no acute distress, well- hydrated, well nourished. EYES PERRLA, conjunctiva and sclera normal. HEART RRR with normal S1 and S2, no murmurs, no gallops, no JVD appreciated LUNG clear to auscultation ABDOMEN bowel sounds normoactive, no bruits, soft, non-tender, non-distended, without organomegaly or palpable masses, no tenderness to palpation EXTREMITIES Extremities normal, No deformities, No skin discoloration, No edema and Normal pulses bilaterally. NEURO Awake, alert and oriented x 3, Cranial nerves II-XII grossly intact, Reflexes symmetrical, Normal gait, No involuntary motions. and negative findings: mental status intact, gait, including heel, toe, and tandem walking normal, muscle tone normal, muscle strength normal, reflexes normal and symmetric, plantar response downgoing bilaterally SKIN Skin color, texture, turgor normal, no suspicious rashes or lesions to exposed skin. PSYCH: Posture and motor behavior: normal posture and motor behavior Dress, grooming, personal hygiene: normal dress and grooming Facial expression: smiling and good eye contact Speech: normal speech Mood: cheerful Coherency and relevance of thought: normal thought processes Memory: normal memory ASSESSMENT/PLAN: 1. Anxiety - ICD9: 300.00, ICD10: F41.9 (primary diagnosis) - will increase to zoloft to 100 mg daily - encouraged use of vistaril as needed- no driving while taking - discussed the importance of counseling along with medication for goo outcome- willing to go - CONSULT TO PSYCHOLOGY - follow-up with Dr. Lorenzo on January 10 2. Hyperammonemia (HCC) - ICD9: 270.6, ICD10: E72.20 - ammonia level today - CONSULT TO HEPATOLOGY 3. Hepatosplenomegaly - ICD9: 571.8, ICD10: R16.2 - CONSULT TO HEPATOLOGY 4. Alcoholism in remission (HCC) - ICD9: 303.93, ICD10: F10.21 - doing well- sticking with AA - 52 days sober - AMMONIA BLD - COMP METABOLIC PANEL - CONSULT TO HEPATOLOGY 5. Thrombocytopenia (HCC) - ICD9: 287.5, ICD10: D69.6 - follow-up with Dr. Bowen as recommended and hepatology - CBC + DIFF Trini Downs, AMAURI.ACID PUMPER Prescription instructions reviewed with patient as applicable. Patient advised if symptoms do not improve or if symptoms worsen sooner, to contact their primary care physician. Potential red flag symptoms discussed with the patient. Reviewed appropriate action plan to take if red flag symptoms occur. Patient agreeable to treatment plan. Referring Provider: RUBEN LORENZO) [[id number]] Allergies As of Date: 12/19/2017 (No Known Allergies) Date Reviewed: 12/19/2017 Reviewed by: Olivia Rodriguez LPN - Fully Assessed Reason for Visit: one month follow up [Other] Primary Visit Diagnosis:Anxiety [F41.9] Other Visit Diagnoses:Hyperammonemia (HCC) [E72.20] Hepatosplenomegaly [R16.2] Alcoholism in remission (HCC) [F10.21] Thrombocytopenia (HCC) [D69.6] Order(s):AMMONIA BLD [SQNH3] Order #: [id number] FUTURE COMP METABOLIC PANEL [SQCMP] Order #: [id number] FUTURE CONSULT TO HEPATOLOGY [4770432] Order #: [id number]: 1 CONSULT TO PSYCHOLOGY [9036] Order #: [id number]: 1 CBC + DIFF [SQCBCDIF] Order #: [id number] FUTURE sertraline (ZOLOFT) 100 mg tabletTake 1 tablet by mouth once daily.Disp: 30 tabletRfl: 3 Prescriptions as of 12/19/2017 Sig: VITAMINS WITH CALCIU* Take 1 tablet by mouth once d* LACTULOSE 10 GRAM/15 ML ORAL * Take 15 mL by mouth twice clifford* SUMATRIPTAN 100 MG TABLET Take 100 mg by mouth as neede* HYDROXYZINE PAMOATE 50 MG CAP* Take 1 capsule by mouth three* OMEPRAZOLE 40 MG CAPSULE,MARIBEL* Take 1 capsule by mouth once * METFORMIN 500 MG TABLET Take 1 tablet by mouth twice * TRAZODONE 50 MG TABLET Take 1 tablet by mouth daily * IBUPROFEN 800 MG TABLET Take 800 mg by mouth every 6 * SERTRALINE 100 MG TABLET Take 1 tablet by mouth once d* Problem List As Of Date 12/19/2017 Noted Resolved Hyperammonemia (HCC) [E72.20] Diabetes mellitus, type II (HCC) [E11.9] Prediabetes [R73.03] 06/08/2017 Pancytopenia (HCC) [D61.818] INVALID FOR* Anxiety [F41.9] GERD (gastroesophageal reflux disease) [K21.9] Hepatosplenomegaly [R16.2] 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 Medications Discontinued During This Encounter thiamine (VITAMIN B-1) 100 mg tablet 30 t* 5 06/05/2017 12/19/2017 Route: ORAL Sig: Take 1 tablet by mouth once daily. Patient not taking: Reported on 12/19/2017 Disc: Course of therapy completed sertraline (ZOLOFT) 50 mg tablet 30 t* 3 11/14/2017 12/19/2017 Route: ORAL Sig: Take 1 tablet by mouth once daily. Disc: Reason for discontinue is not on file. Follow-up and Disposition History Recorded Encounter Status:Closed by PODLOGTRINI HOUGH CNP on 12/22/17 CNCO Observed: 11/27/2017 Status: COMPLETED Source: [place] 12:00 AM [facility] REPOSITORY Letter Text [place] Department of Family Medicine Ruben Lorenzo MD [phone] [id number] Dear Polo Joselyn Your health care is very important to us. Our records indicate that you may be due for a diabetic eye exam. If you have had a diabetic eye exam within the last year, please have your records sent to us so that we may update your medical records. There is a medical records of release of information included in this letter. Please take the release to your eye doctor for future appointments to have your records forwarded to us. Important facts about diabetic eye exams Diabetic retinal exams should be done yearly for all patients with a diagnosis of diabetes. Risks such as diabetic retinopathy can be reduced with blood glucose control and early detection of potential problems. Diabetic retinopathy is damage to the small blood vessels in the retina that can lead to blindness Thank you, Ruben Lorenzo MD PROGRESS Observed: 11/23/2017 Status: COMPLETED Source: [place] 11:28 AM [facility] REPOSITORY HNO ID: [id number] Author: Diana Cuellar Service: (none) Author Type: Bracelet Form Coverer Type: Progress Notes Filed: 11/23/2017 11:28 AM Note Text: Radiology Service Progress Note PATIENT NAME: Polo Alves DATE OF SERVICE: November 23, 2017 TIME: 11:28 AM PATIENT IDENTITY VERIFICATION COMPLETED USING TWO (2) METHODS: Patient confirmed name verbally and Date of . PATIENT GENDER DATA: Female. status: : No status: N/A PATIENT RELEVANT IMPLANT DATA REVIEWED: Not Applicable RADIOLOGY DEPARTMENT: Ultrasound ABD COMPLETE PERIPHERAL IV DATA: Not applicable SIGNED BY: DIANA CUELLAR RDMS RVAgatha November 23, 2017 11:28 AM US ABDOMEN COMPLETE Observed: 11/23/2017 Status: F Source: [place] 11:27 AM [facility] REPOSITORY * * *Final Report* * * DATE OF EXAM: Nov 23 2017 11:27AM U 1040 - US ABDOMEN COMPLETE / PROCEDURE REASON: multiple diagnoses * * * * Physician Interpretation * * * * EXAMINATION: COMPLETE ABDOMINAL ULTRASOUND CLINICAL HISTORY: Hepatosplenomegaly. Pancytopenia TECHNIQUE: Sonography of the abdomen was performed. Images were obtained and stored in a permanent archive. MQ: UAbC_1 COMPARISON: 06/12/2017 RESULT: Pancreas: Normal sonographic appearance. Portions obscured: Tail Lesions: None Liver: 16.4 cm in length Echotexture: Normal, homogeneous. Echogenicity: Normal Surface contour: Smooth Lesions: None. Biliary: No intrahepatic biliary duct dilation. CBD: Not definitively identified Gallbladder: Normal caliber -Contents: Tiny calculi and sludge, also seen previously. -Wall: Normal -Other: No pericholecystic fluid. No sonographic Landeros sign. Spleen: Craniocaudal length: 19.7 cm, enlarged, previously 20 cm. Lesions: None Right Kidney: -Renal length: 13.2 cm -Parenchyma: Normal parenchymal echogenicity. Normal parenchymal thickness. -Collecting system: No hydronephrosis. -Calculus: No echogenic, shadowing calculus. -Lesion: None. Left Kidney: -Renal length: 12.9 cm -Parenchyma: Normal parenchymal echogenicity. Normal parenchymal thickness. -Collecting system: No hydronephrosis. -Calculus: No echogenic, shadowing calculus. -Lesion: None. Bladder: Normal. IVC: Imaged segment is patent. Abdominal Aorta: Imaged segment is patent. Proximal aorta measures 1.7 x 1.7 cm Mid aorta measures 1.4 x 1.4 cm Distal aorta measures 1.6 x 1.5 cm Ascites: None. IMPRESSION: STABLE SPLENOMEGALY AND BORDERLINE HEPATOMEGALY CHOLELITHIASIS WITHOUT OTHER FINDINGS OF ACUTE CHOLECYSTITIS COMMON DUCT NOT DEFINITIVELY IDENTIFIED BUT NO SUGGESTION OF BILIARY DILATION Tool Technician: HERNANDOB Transcribe Date/Time: Nov 23 2017 3:32P Dictated by : SANDRA THAPA MD This examination was interpreted and the report reviewed and electronically signed by: SANDRA THAPA MD on Nov 23 2017 3:37PM EST [id number] Observed: 11/20/2017 Status: COMPLETED Source: [place] 12:00 AM [facility] REPOSITORY Telephone (DEREK) POLO ALVES ([id number]) 1975 F Date Time Provider Department 11/20/17 JENNIFER BOWEN During your visit today, we recorded the following information about you: Jennifer Bowen MD 11/20/2017 7:59 AM Signed Please start vitamin with iron [id number] once daily. follow up with PCP for possible GI / hepatology evaluation. Patient's request for medication is as follows Signed Prescriptions Disp Refills Vitamin with 29 mg Iron ( PLUS) 29 mg iron- 1 mg 100 tablet 1 Sig: Take 1 tablet by mouth once daily. Authorizing Provider: JENNIFER BOWEN Order entered - please phone pharmacy and notify patient. MD Jennifer Romero MD Melanie Peters LPN 11/20/2017 9:16 AM Signed Message left on patient's voicemail to return call. When patient returns call please relay information below, then document and close encounter. Mya Marsh LPN 11/21/2017 1:52 PM Signed Second message left on patient's voicemail for a return call. Mya Marsh LPN Meggan Briggs [facility] 11/21/2017 2:06 PM Signed Patient returned call - no further questions. Patient states that Dr. Lorenzo's nurse put her on Lactulose. 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) [F10.21] Iron deficiency anemia, unspecified iron deficiency anemia type [D50.9] Order(s): Vitamin with 29 mg Iron ( PLUS) 29 mg iron- 1 mgTake 1 tablet by mouth once daily.Disp: 100 tabletRfl: 1 Prescriptions as of 11/20/2017 Sig: VITAMINS WITH CALCIU* Take 1 tablet by mouth once d* LACTULOSE 10 GRAM/15 ML ORAL * Take 15 mL by mouth twice clifford* SUMATRIPTAN 100 MG TABLET Take 100 mg by mouth as neede* HYDROXYZINE PAMOATE 50 MG CAP* Take 1 capsule by mouth three* SERTRALINE 50 MG TABLET Take 1 tablet by mouth once d* OMEPRAZOLE 40 MG CAPSULE,MARIBEL* Take 1 capsule by mouth once * METFORMIN 500 MG TABLET Take 1 tablet by mouth twice * TRAZODONE 50 MG TABLET Take 1 tablet by mouth daily * IBUPROFEN 800 MG TABLET Take 800 mg by mouth every 6 * THIAMINE HCL (VITAMIN B1) 100* Take 1 tablet by mouth once d* Problem List As Of Date 11/20/2017 Noted Resolved Hyperammonemia (HCC) [E72.20] Diabetes mellitus, type II (HCC) [E11.9] Prediabetes [R73.03] 06/08/2017 Pancytopenia (HCC) [D61.818] INVALID FOR* Anxiety [F41.9] GERD (gastroesophageal reflux disease) [K21.9] Hepatosplenomegaly [R16.2] 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 Medications Discontinued During This Encounter folic acid 1 mg tablet 30 t* 5 06/05/2017 11/20/2017 Route: ORAL Sig: Take 1 tablet by mouth once daily. Disc: Reason for discontinue is not on file. Encounter Status:Closed by JENNIFER BOWEN MD on 11/20/17 PROGRESS Observed: 11/17/2017 Status: COMPLETED Source: [place] 10:26 AM [facility] REPOSITORY [facility] ID: [id number] Author: Jennifer Bowen Service: (none) Author Type: Physician Type: Progress Notes Filed: 11/20/2017 7:54 AM Note Text: Hematology and Medical Oncology PATIENT NAME: Polo Alves. CLINIC NO: [id number]. ATTENDING PHYSICIAN: Jennifer Bowen MD. DATE OF SERVICE:11/17/2017. DIAGNOSIS: anemia and thrombocytopenia secondary to chronic liver disease/ alcoholic cirrhosis Consultation requested by Meghan Sher CNP for an opinion regarding pancytopenia AND hepatosplenomegaly. My final recommendations will be communicated back to the requesting physician by way of shared Medical record or letter to requesting physician via US mail. PERFORMANCE STATUS:80% HPI: 41-year-old lady former alcoholic who presented in April with seizure disorder from alcohol withdrawal and liver failure. Patient also had pancytopenia along with hepatosplenomegaly. Patient has been drinking alcohol since age 16 she had drank up to half a gallon of [place] per day last year until she stopped drinking recently. Previous complications including pancreatitis in 2008, and alcoholic hepatitis. She has some bleeding gums but no history of epistaxis, rectal MRI to bleeding or hematemesis. no history of blood transfusion. Menstrual history 2 para 2 AB 0 she has to children ages 7 and 4. Patient was just discharged from alcoholic rehabilitation 2 weeks ago. Her last alcohol drink was on October 28. She has some weight gain and abdominal bloating since she stopped drinking. She denies headaches, visual changes, seizure, lethargy, chest pain or shortness of breath. She denies nausea, vomiting or diarrhea. No evidence of jaundice. she is also a formersmoker half pack /day, she quit smoking in April 2017. No history of viral hepatitis or HIV infection. + family history of alcoholism. MEDICATIONS: Current Outpatient Prescriptions: SUMAtriptan (IMITREX) 100 mg tablet Take 100 mg by mouth as needed. hydrOXYzine pamoate (VISTARIL) 50 mg capsule Take 1 capsule by mouth three times daily as needed. sertraline (ZOLOFT) 50 mg tablet Take 1 tablet by mouth once daily. Omeprazole 40 mg capsule Take 1 capsule by mouth once daily. metFORMIN (GLUCOPHAGE) 500 mg tablet Take 1 tablet by mouth twice daily with meals. traZODone (DESYREL) 50 mg tablet Take 1 tablet by mouth daily at bedtime. ibuprofen (MOTRIN) 800 mg tablet Take 800 mg by mouth every 6 hours as needed. thiamine (VITAMIN B-1) 100 mg tablet Take 1 tablet by mouth once daily. folic acid 1 mg tablet Take 1 tablet by mouth once daily. fluticasone (FLONASE) 50 mcg/actuation nasal spray No current facility-administered medications for this visit. . ALLERGIES:ALLERGIES No Known Allergies. 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 PAST SURGICAL HISTORY: PAST SURGICAL HISTORY Procedure Laterality Date - ANESTH, SECTION 01/22/2010 - SECTION HX 05/07/2013 - LEEP PROCEDURE ([employer])_*FL 2012 - PAST SURGICAL HISTORY OF 2018 nasal vessel cauterization-Dr. Chappell . FAMILY HISTORY: FAMILY HISTORY Problem Relation Age of Onset - dementia [OTHER] Mother 50 - GI Father 35 Chron's - Alcohol/Drug Maternal Grandmother - Breast Cancer Maternal Grandmother 60 - Alzheimer's Disease Maternal Grandmother may not have been alzheimer's, but dementia - Alcohol/Drug Maternal Grandfather - Diabetes Paternal Grandmother - Heart Paternal Grandmother - Alcohol/Drug Paternal Grandfather - Alcohol/Drug Sister . SOCIAL HISTORY:Social History Marital status: Spouse name: Years of education: Number of children: Social History Main Topics Smoking status: Former Smoker Packs/day: 0.50 Years: 24.00 Types: Cigarettes Quit date: 05/06/2017 Smokeless tobacco: Never Used Alcohol use: No Comment: Recovering alcoholic Drug use: No Sexual activity: Yes control/protection: Injection . REVIEW OF SYSTEMS: CONSTITUTIONAL: No fevers, chills, nightsweats, unintended weight loss HEENT: Denies frequent or severe heaches, nasal congestion/sinus symptoms, problematic allergy problems. EYES: No diplopia or blurry vision. CARDIOVASCULAR: No chest pain, dyspnea, palpitations, orthopnea, PND, ankle edema. PULM: No dyspnea, unexplained cough. GI: No dysphagia/odynophagia, problematic reflux, constipation, diarrhea, changes in stool habits, hematochezia, melena. : No new urinary complaints, including dysuria, gross hematuria or pyuria. NEURO: No new balance problems, peripheral weakness/paresthesias or numbness of concern. MUSC-SKEL: No new joint pain, swelling, or erythema. PSY: No concerns regarding depression, anxiety or panic. INTEGUMENTARY: No new skin changes (rash, new or changing mole, new growth) PHYSICAL EXAMINATION: 41-year-old well-nourished well-developed female in no acute distress BP 122/80 Pulse 80 Temp (Src) 98.1 (Oral) Ht 5' 6.25 (1.68m) Wt 163 lb (73.9kg) BMI 26.10 kg/(m2). HEENT: Head is normocephalic, atraumatic. Sclerae white, conjunctivae pink. PEERL. EOMs are intact. Oropharynx is benign. LYMPHATICS: There is no palpable adenopathy in the neck, supraclavicular region, axillae, or groin. LUNGS: Lungs are clear to percussion and auscultation. HEART: Heart is normal without murmurs, gallops, or rubs. ABDOMEN: Nondistended, Soft and nontender with hepatosplenomegaly, possible small amount of ascites with shifting dullness. No guarding or rebound tenderness. EXTREMITIES: Are without edema. NEUROLOGIC: Exam is physiologic LABORATORY DATA: Component Latest Ref Rng AND Units 11/17/2017 WBC, [place] 3.70 - 11.00 k/uL 4.51 RBC, [place] 3.90 - 5.20 m/uL 4.18 Hemoglobin, [place] 11.5 - 15.5 g/dL 11.1 (L) Hematocrit, [place] 36.0 - 46.0 % 34.6 (L) MCV, [place] 80.0 - 100.0 fL 82.8 MCH, [place] 26.0 - 34.0 pg 26.6 MCHC, [place] 30.5 - 36.0 g/dL 32.1 RDW, [place] 11.5 - 15.0 % 15.3 (H) Platelet Cnt, [place] 150 - 400 k/uL 106 (L) MPV, [place] 9.0 - 12.7 fL 10.3 Absol Gran Count 1.45 - 7.50 k/uL 2.70 peripheral blood smear: Normocytic / normochromic anemia. Platelet is decreased. Mild leukopenia. Component Latest Ref Rng AND Units 11/17/2017 Protein, Total 6.3 - 8.0 g/dL 7.3 Albumin 3.9 - 4.9 g/dL 4.0 Calcium 8.5 - 10.2 mg/dL 9.5 Bilirubin, Total 0.2 - 1.3 mg/dL 0.8 Alkaline Phosphatase 32 - 117 U/L 106 AST 13 - 35 U/L 38 (H) Glucose 74 - 99 mg/dL 145 (H) BUN 7 - 21 mg/dL 14 Creatinine 0.58 - 0.96 mg/dL 0.57 (L) Sodium 136 - 144 mmol/L 143 Potassium 3.7 - 5.1 mmol/L 4.1 Chloride 97 - 105 mmol/L 107 (H) CO2 22 - 30 mmol/L 21 (L) Anion Gap 9 - 18 mmol/L 15 ALT 7 - 38 U/L 27 eGFR- >60 eGFR-All Other Races . >60 Ammonia 11 - 51 umol/L 74 (H) Ethanol <11 mg/dL <11 Component Latest Ref Rng AND Units 11/17/2017 PT Sec 9.7 - 13.0 sec 11.7 PT INR 0.9 - 1.3 1.1 GGT 6 - 46 U/L 245 (H) AFP <11 ng/mL 7.4 Component Latest Ref Rng AND Units 06/12/2017 Hep B Core Ab, Total Negative Negative Hep C Antibody IA Negative Negative Hep B Surface Ag Negative Negative Hep B Surface Ab, Qual Negative Positive (A) HIV 12 Combo (Ag/Ab) Non Reactive Non Reactive Component Latest Ref Rng AND Units 11/17/2017 Iron 41 - 186 ug/dL 48 TIBC 232 - 386 ug/dL 440 (H) Transferrin Saturation 15 - 57 % 11 (L) Retic % 0.4 - 2.0 % 1.1 Abs Retic 0.0180 - 0.1000 M/uL 0.047 Ferritin 14.7 - 205.1 ng/mL 18.1 Folate >4.7 ng/mL >20.0 Vitamin B12 232 - 1,245 pg/mL 656 ASSESSMENT: 41-year-old female with anemia of chronic disease. mild thrombocytopenia with hepatosplenomegaly consistent with chronic liver disease and possible alcoholic cirrhosis. PLAN: - anemia panel ordered today for evaluation of anemia. - Repeat liver function, GGT, and prothrombin time - Check alpha-fetoprotein level and ultrasound liver/spleen and abdomen because of hepatosplenomegaly and possible ascites. - I emphasized that she needed to stop drinking and stay sober because of her severe liver disease. - possible hepatology evaluation if her ultrasound indicated ascites. I spent 60 minutes in the visit, with more than 50% of the total [id number] time of the visit in counseling / coordination of care. The patient was allowed enough time to ask questions. All questions were answered to her satisfaction. Patient verbalized understanding of her anemia and thrombocytopenia and agreed to top drinking alcohol and follow with PCP. Jennifer Bowen MD. ELECTRONICALLY SIGNED Cc: Dr. Ruben Lorenzo CNOVSP Observed: 11/17/2017 Status: COMPLETED Source: [place] 10:00 AM [facility] REPOSITORY Visit (SP) Office (HEMAWS) POLO ALVES ([id number]) 1975 F Date Time Provider Department 11/17/17 10:00 AM JENNIFER BOWEN During your visit today, we recorded the following information about you: Temperature Pulse Blood pressure Weight 98.1 degrees 80/minute 122/80 73.9 kg Height 1.683 m Jennifer oBwen MD 11/20/2017 7:54 AM Signed Hematology and Medical Oncology PATIENT NAME: Polo Alves. CLINIC NO: [id number]. ATTENDING PHYSICIAN: Jennifer Bowen MD. DATE OF SERVICE:11/17/2017. DIAGNOSIS: anemia and thrombocytopenia secondary to chronic liver disease/ alcoholic cirrhosis Consultation requested by Meghan Sher CNP for an opinion regarding pancytopenia AND hepatosplenomegaly. My final recommendations will be communicated back to the requesting physician by way of shared Medical record or letter to requesting physician via US mail. PERFORMANCE STATUS:80% HPI: 41-year-old lady former alcoholic who presented in April with seizure disorder from alcohol withdrawal and liver failure. Patient also had pancytopenia along with hepatosplenomegaly. Patient has been drinking alcohol since age 16 she had drank up to half a gallon of [place] per day last year until she stopped drinking recently. Previous complications including pancreatitis in 2008, and alcoholic hepatitis. She has some bleeding gums but no history of epistaxis, rectal MRI to bleeding or hematemesis. no history of blood transfusion. Menstrual history 2 para 2 AB 0 she has to children ages 7 and 4. Patient was just discharged from alcoholic rehabilitation 2 weeks ago. Her last alcohol drink was on October 28. She has some weight gain and abdominal bloating since she stopped drinking. She denies headaches, visual changes, seizure, lethargy, chest pain or shortness of breath. She denies nausea, vomiting or diarrhea. No evidence of jaundice. she is also a formersmoker half pack /day, she quit smoking in April 2017. No history of viral hepatitis or HIV infection. + family history of alcoholism. MEDICATIONS: Current Outpatient Prescriptions: SUMAtriptan (IMITREX) 100 mg tablet Take 100 mg by mouth as needed. hydrOXYzine pamoate (VISTARIL) 50 mg capsule Take 1 capsule by mouth three times daily as needed. sertraline (ZOLOFT) 50 mg tablet Take 1 tablet by mouth once daily. Omeprazole 40 mg capsule Take 1 capsule by mouth once daily. metFORMIN (GLUCOPHAGE) 500 mg tablet Take 1 tablet by mouth twice daily with meals. traZODone (DESYREL) 50 mg tablet Take 1 tablet by mouth daily at bedtime. ibuprofen (MOTRIN) 800 mg tablet Take 800 mg by mouth every 6 hours as needed. thiamine (VITAMIN B-1) 100 mg tablet Take 1 tablet by mouth once daily. folic acid 1 mg tablet Take 1 tablet by mouth once daily. fluticasone (FLONASE) 50 mcg/actuation nasal spray No current facility-administered medications for this visit. . ALLERGIES:ALLERGIES No Known Allergies. PAST MEDICAL HISTORY: PAST MEDICAL HISTORY Diagnosis Date - Abnormal Pap smear of cervix 2011 - Alcoholism in remission (HCC) - Anxiety - Diabetes mellitus, type II (HCC) - Elevated LFTs - Gallstones - GERD (gastroesophageal reflux disease) - Gestational diabetes mellitus - Hepatic steatosis - Hepatosplenomegaly - Hyperammonemia (HCC) - Insomnia - Pancytopenia (HCC) 07/05/2017 - Recurrent genital herpes simplex type 1 infection diagnosed in 2013 - Thrombocytopenia (HCC) . PAST SURGICAL HISTORY: PAST SURGICAL HISTORY Procedure Laterality Date - ANESTH, SECTION 01/22/2010 - SECTION HX 05/07/2013 - LEEP PROCEDURE ([employer])_*MA 2011 - PAST SURGICAL HISTORY OF 2018 nasal vessel cauterization-Dr. Chappell . FAMILY HISTORY: FAMILY HISTORY Problem Relation Age of Onset - dementia [OTHER] Mother 50 - GI Father 35 Chron's - Alcohol/Drug Maternal Grandmother - Breast Cancer Maternal Grandmother 60 - Alzheimer's Disease Maternal Grandmother may not have been alzheimer's, but dementia - Alcohol/Drug Maternal Grandfather - Diabetes Paternal Grandmother - Heart Paternal Grandmother - Alcohol/Drug Paternal Grandfather - Alcohol/Drug Sister . SOCIAL HISTORY:Social History Marital status: Spouse name: Years of education: Number of children: Social History Main Topics Smoking status: Former Smoker Packs/day: 0.50 Years: 24.00 Types: Cigarettes Quit date: 05/06/2017 Smokeless tobacco: Never Used Alcohol use: No Comment: Recovering alcoholic Drug use: No Sexual activity: Yes control/protection: Injection . REVIEW OF SYSTEMS: CONSTITUTIONAL: No fevers, chills, nightsweats, unintended weight loss HEENT: Denies frequent or severe heaches, nasal congestion/sinus symptoms, problematic allergy problems. EYES: No diplopia or blurry vision. CARDIOVASCULAR: No chest pain, dyspnea, palpitations, orthopnea, PND, ankle edema. PULM: No dyspnea, unexplained cough. GI: No dysphagia/odynophagia, problematic reflux, constipation, diarrhea, changes in stool habits, hematochezia, melena. : No new urinary complaints, including dysuria, gross hematuria or pyuria. NEURO: No new balance problems, peripheral weakness/paresthesias or numbness of concern. MUSC-SKEL: No new joint pain, swelling, or erythema. PSY: No concerns regarding depression, anxiety or panic. INTEGUMENTARY: No new skin changes (rash, new or changing mole, new growth) PHYSICAL EXAMINATION: 41-year-old well-nourished well-developed female in no acute distress BP 122/80 Pulse 80 Temp (Src) 98.1 (Oral) Ht 5' 6.25 (1.68m) Wt 163 lb (73.9kg) BMI 26.10 kg/(m2). HEENT: Head is normocephalic, atraumatic. Sclerae white, conjunctivae pink. PEERL. EOMs are intact. Oropharynx is benign. LYMPHATICS: There is no palpable adenopathy in the neck, supraclavicular region, axillae, or groin. LUNGS: Lungs are clear to percussion and auscultation. HEART: Heart is normal without murmurs, gallops, or rubs. ABDOMEN: Nondistended, Soft and nontender with hepatosplenomegaly, possible small amount of ascites with shifting dullness. No guarding or rebound tenderness. EXTREMITIES: Are without edema. NEUROLOGIC: Exam is physiologic LABORATORY DATA: Component Latest Ref Rng AND Units 11/17/2017 WBC, [place] 3.70 - 11.00 k/uL 4.51 RBC, [place] 3.90 - 5.20 m/uL 4.18 Hemoglobin, [place] 11.5 - 15.5 g/dL 11.1 (L) Hematocrit, [place] 36.0 - 46.0 % 34.6 (L) MCV, [place] 80.0 - 100.0 fL 82.8 MCH, [place] 26.0 - 34.0 pg 26.6 MCHC, [place] 30.5 - 36.0 g/dL 32.1 RDW, [place] 11.5 - 15.0 % 15.3 (H) Platelet Cnt, [place] 150 - 400 k/uL 106 (L) MPV, [place] 9.0 - 12.7 fL 10.3 Absol Gran Count 1.45 - 7.50 k/uL 2.70 peripheral blood smear: Normocytic / normochromic anemia. Platelet is decreased. Mild leukopenia. Component Latest Ref Rng AND Units 11/17/2017 Protein, Total 6.3 - 8.0 g/dL 7.3 Albumin 3.9 - 4.9 g/dL 4.0 Calcium 8.5 - 10.2 mg/dL 9.5 Bilirubin, Total 0.2 - 1.3 mg/dL 0.8 Alkaline Phosphatase 32 - 117 U/L 106 AST 13 - 35 U/L 38 (H) Glucose 74 - 99 mg/dL 145 (H) BUN 7 - 21 mg/dL 14 Creatinine 0.58 - 0.96 mg/dL 0.57 (L) Sodium 136 - 144 mmol/L 143 Potassium 3.7 - 5.1 mmol/L 4.1 Chloride 97 - 105 mmol/L 107 (H) CO2 22 - 30 mmol/L 21 (L) Anion Gap 9 - 18 mmol/L 15 ALT 7 - 38 U/L 27 eGFR- >60 eGFR-All Other Races . >60 Ammonia 11 - 51 umol/L 74 (H) Ethanol <11 mg/dL <11 Component Latest Ref Rng AND Units 11/17/2017 PT Sec 9.7 - 13.0 sec 11.7 PT INR 0.9 - 1.3 1.1 GGT 6 - 46 U/L 245 (H) AFP <11 ng/mL 7.4 Component Latest Ref Rng AND Units 06/12/2017 Hep B Core Ab, Total Negative Negative Hep C Antibody IA Negative Negative Hep B Surface Ag Negative Negative Hep B Surface Ab, Qual Negative Positive (A) HIV 12 Combo (Ag/Ab) Non Reactive Non Reactive Component Latest Ref Rng AND Units 11/17/2017 Iron 41 - 186 ug/dL 48 TIBC 232 - 386 ug/dL 440 (H) Transferrin Saturation 15 - 57 % 11 (L) Retic % 0.4 - 2.0 % 1.1 Abs Retic 0.0180 - 0.1000 M/uL 0.047 Ferritin 14.7 - 205.1 ng/mL 18.1 Folate >4.7 ng/mL >20.0 Vitamin B12 232 - 1,245 pg/mL 656 ASSESSMENT: 41-year-old female with anemia of chronic disease. mild thrombocytopenia with hepatosplenomegaly consistent with chronic liver disease and possible alcoholic cirrhosis. PLAN: - anemia panel ordered today for evaluation of anemia. - Repeat liver function, GGT, and prothrombin time - Check alpha-fetoprotein level and ultrasound liver/spleen and abdomen because of hepatosplenomegaly and possible ascites. - I emphasized that she needed to stop drinking and stay sober because of her severe liver disease. - possible hepatology evaluation if her ultrasound indicated ascites. I spent 60 minutes in the visit, with more than 50% of the total [id number] time of the visit in counseling / coordination of care. The patient was allowed enough time to ask questions. All questions were answered to her satisfaction. Patient verbalized understanding of her anemia and thrombocytopenia and agreed to top drinking alcohol and follow with PCP. Jennifer Bowen MD. ELECTRONICALLY SIGNED Cc: Dr. Ruben Lorenzo Referring Provider: MEGHAN SHER ([facility]) [[id number]] Allergies As of Date: 11/17/2017 (No Known Allergies) Date Reviewed: 11/17/2017 Reviewed by: Cristina Orozco - Fully Assessed Reason for Visit: New Patient Evaluation [154] Primary Visit Diagnosis:Pancytopenia (HCC) [D61.818] Other Visit Diagnoses:Hepatosplenomegaly [R16.2] Alcoholism in remission (HCC) [F10.21] Alcoholic cirrhosis of liver without ascites (HCC) [K70.30] Order(s):PROTHROMBIN TIME/PT [SQPT] Order #: [id number] FUTURE FERRITIN BLD [SQFERR] Order #: [id number] FUTURE FOLATE SERUM [SQSERFOL] Order #: [id number] FUTURE METHYLMALONIC ACID [SQMMA] Order #: [id number] FUTURE RETIC COUNT [SQRETIC] Order #: [id number] FUTURE VITAMIN B12 BLOOD [SQB12] Order #: [id number] FUTURE VITAMIN B6/PYRIDOXIN [SQVITB6] Order #: [id number] FUTURE IRON + TIBC [SQIRON] Order #: [id number] FUTURE GGT BLD [SQGGT] Order #: [id number] FUTURE ALPHA FETOPROTEIN BL [SQAFP] Order #: [id number] FUTURE US ABDOMEN COMPLETE [0264828] Order #: [id number] FUTURE Level of Service: NEW PATIENT VISIT LEVEL 5 [62707] Follow-up and Disposition History Recorded Prescriptions as of 11/17/2017 Sig: SUMATRIPTAN 100 MG TABLET Take 100 mg by mouth as neede* HYDROXYZINE PAMOATE 50 MG CAP* Take 1 capsule by mouth three* SERTRALINE 50 MG TABLET Take 1 tablet by mouth once d* OMEPRAZOLE 40 MG CAPSULE,MARIBEL* Take 1 capsule by mouth once * METFORMIN 500 MG TABLET Take 1 tablet by mouth twice * TRAZODONE 50 MG TABLET Take 1 tablet by mouth daily * IBUPROFEN 800 MG TABLET Take 800 mg by mouth every 6 * THIAMINE HCL (VITAMIN B1) 100* Take 1 tablet by mouth once d* FOLIC ACID 1 MG TABLET Take 1 tablet by mouth once d* Medication notes this encounter FLUTICASONE 50 MCG/ACTUATION NASAL SPRAY,SUSPENSION >> Cristina Orozco MA 11/17/2017 10:03 AM >> CRISTINA OROZCO MA MonNov 17, 2017 10:03 AM No longer using. Problem List As Of Date 11/17/2017 Noted Resolved Hyperammonemia (HCC) [E72.20] Diabetes mellitus, type II (HCC) [E11.9] Prediabetes [R73.03] 06/08/2017 Pancytopenia (HCC) [D61.818] INVALID FOR* Anxiety [F41.9] GERD (gastroesophageal reflux disease) [K21.9] Hepatosplenomegaly [R16.2] Alcoholism in remission (HCC) [F10.21] Encounter Status:Closed by JENNIFER BOWEN MD on 11/20/17 FRIEDA ABS GR + CBC Collected: 11/17/2017 Status: F Source: [place] 9:53 AM [facility] REPOSITORY TYPE CODE TESTS RESULT OUT OF REFERENCE UNITS RANGE LAB WWBC 3.70-11.00 k/uL [place] WBC 4.51 LAB WRBC 3.90-5.20 m/uL [place] RBC 4.18 LAB WHGB 11.5-15.5 g/dL Low [place] Hemoglobin 11.1 LAB WHCT 36.0-46.0 % Low [place] Hematocrit 34.6 LAB WMCV 80.0-100.0 fL [place] MCV 82.8 LAB WMCH 26.0-34.0 pg [place] MCH 26.6 LAB WMCHC 30.5-36.0 g/dL [place] MCHC 32.1 LAB WRDW 11.5-15.0 % [place] High RDW 15.3 LAB WPLT 150-400 k/uL Low [place] Platelet Cnt 106 LAB WMPV 9.0-12.7 fL [place] MPV 10.3 Result Comment: Test performed at: [facility], [address] [place] [address] Rd[address] [place] [address]. LAB ABGRAN 1.45-7.50 k/uL Absol Gran 2.70 Count ETHANOL Collected: 11/17/2017 Status: F Source: [place] 9:53 AM [facility] REPOSITORY TYPE CODE TESTS RESULT OUT OF REFERENCE UNITS RANGE LAB ALCO <11 mg/dL Ethanol <11 Result Comment: Values > 80 mg/dL may indicate intoxication Performed By: #### ALCO, NH3, CMP #### [facility] [address] [address] AMMONIA Collected: 11/17/2017 Status: F Source: [place] 9:53 AM [facility] REPOSITORY TYPE CODE TESTS RESULT OUT OF REFERENCE UNITS RANGE LAB NH3 11-51 umol/L High [place] 74 Performed By: #### ALCO, NH3, CMP #### [facility] [address] [place], [place] [address] COMP METABOLIC PANEL Collected: 11/17/2017 Status: F Source: [place] 9:53 AM [facility] REPOSITORY TYPE CODE TESTS RESULT OUT OF REFERENCE UNITS RANGE LAB TP 6.3-8.0 g/dL Protein, Total 7.3 LAB ALB 3.9-4.9 g/dL Albumin 4.0 LAB CA 8.5-10.2 mg/dL Calcium, Total 9.5 LAB TBIL 0.2-1.3 mg/dL Bilirubin, Total 0.8 LAB ALKP 32-117 U/L Alkaline Phosphatase 106 LAB AST 13-35 U/L AST High 38 LAB GLU 74-99 mg/dL Glucose High 145 Result Comment: The [place] [employer] (ADA) provides guidance for cutoff values for fasting glucose and random glucose. The ADA defines fasting as no caloric intake for at least 8 hours. Fas ting plasma glucose results between 100 to 125 mg/dL indicate increased risk for diabetes (prediabetes). Fasting plasma glucose results greater than or equal to 126 mg/dL meet the criteria for diagnosis of diabetes. In the absence of unequivocal hyperglycemia, results should be confirmed by repeat testing. In a patient with classic symptoms of hyperglycemia or hyperglycemic crisis, random plasma glucose results greater than or equal to 200 mg/dL meet the criteria for diagnosis of diabetes. Reference: Standards of Medical Care in Diabetes 2016, [place] [employer]. Diabetes Care. 2016.39(Suppl 1). LAB BUN 7-21 mg/dL BUN 14 LAB CRET 0.58-0.96 mg/dL Low Creatinine 0.57 LAB NA 136-144 mmol/L Sodium 143 LAB K 3.7-5.1 mmol/L Potassium 4.1 LAB CL 97-105 mmol/L Chloride High 107 LAB CO2 22-30 mmol/L Low CO2 21 LAB AGAP 9-18 mmol/L Anion Gap 15 LAB ALT 7-38 U/L ALT 27 LAB GFRAA eGFR- Amer. >60 LAB GFRNAA . eGFR-All Other Races >60 Result Comment: eGFR (Estimated GFR) Units of measure: mL/min/1.73 meters squared eGFR is derived from the reexpressed MDRD Study equation using the following parameters: serum creatinine, age, gender and race. The creatinine assay has been calibrated to be traceable to IDMS. An eGFR <60 mL/min/1.73m2 for >3 months is consistent with chronic kidney disease. Refer to KDOQI guidelines for clinical interpretation. In patients with unstable renal function, e.g. those with acute kidney injury, the eGFR may not accurately reflect actual GFR. Performed By: #### ALCO, NH3, CMP #### [facility] [address] [place], [place] [address] PROTIME Collected: 11/17/2017 Status: F Source: [place] [address]:50 AM [facility] REPOSITORY TYPE CODE TESTS RESULT OUT OF RANGE REFERENCE UNITS LAB PSEC 9.7-13.0 sec PT Sec 11.7 LAB INR 0.9-1.3 PT INR 1.1 Result Comment: Vitamin K Antagonist (VKA) Therapeutic Range: INR 2 to 3 (Target INR of 2.5) Note: For patients treated with VKA drugs, such as warfarin, the [place] [employer] 2012 Guideline recommends a therapeutic INR range of 2 to 3 (target INR of 2.5). This recommendation includes high-risk patients with antiphospholipid syndrome with previous arterial or venous thromboembolism, current-generation mechanical or bioprosthetic aortic heart valve replacement. Note: Patients with mechanical aortic valve replacement and additional risk factors for thromboembolic events (atrial fibrillation, previous thromboembolism, LV dysfunction, hypercoagulable conditions) or an older generation mechanical AVR (i.e., ball in-Cage) or any mechanical MVR should have a INR therapeutic range of 2.5 to 3.5 (target INR of 3). Qian GH, et al. Chest 2012, 141:7S-47S Sariah RA, et al. [facility] 2017, 70: 252-289 Performed By: #### PT, RETIC, GGT, IRON, FERR, B12, SERFOL, AFP, MMA #### [facility] [address] [place] [address] #### VITB6 #### [facility] [address] [place] [address] [phone] RETICULOCYTE Collected: 11/17/2017 Status: F Source: [place] 9:50 AM [facility] REPOSITORY TYPE CODE TESTS RESULT OUT OF REFERENCE UNITS RANGE LAB RETC 0.4-2.0 % Retic% 1.1 LAB ABRET 0.0180-0.1000 M/uL Abs Retic 0.047 Performed By: #### PT, RETIC, GGT, IRON, FERR, B12, SERFOL, AFP, MMA #### [facility] [address] [place] [address] #### VITB6 #### [facility] [address] [place] [address] [phone] GGT Collected: 11/17/2017 Status: F Source: [place] 9:50 AM [facility] REPOSITORY TYPE CODE TESTS RESULT OUT OF RANGE REFERENCE UNITS LAB GGT 6-46 U/L High GGT 245 Performed By: #### PT, RETIC, GGT, IRON, FERR, B12, SERFOL, AFP, MMA #### [place] [address] #### VITB6 #### [place] [address] [phone] IRON AND TIBC Collected: 11/17/2017 Status: F Source: [place] 9:50 AM [facility] REPOSITORY TYPE CODE TESTS RESULT OUT OF REFERENCE UNITS RANGE LAB IRN 41-186 ug/dL Iron 48 LAB TIBC 232-386 ug/dL TIBC High 440 LAB SAT 15-57 % Low Transferrin Saturatn 11 Performed By: #### PT, RETIC, GGT, IRON, FERR, B12, SERFOL, AFP, MMA #### [place] [phone] #### VITB6 #### [place] [address] [phone] FERRITIN Collected: 11/17/2017 Status: F Source: [place] 9:50 AM [facility] REPOSITORY TYPE CODE TESTS RESULT OUT OF REFERENCE UNITS RANGE LAB FERR 14.7-205.1 ng/mL Ferritin 18.1 Performed By: #### PT, RETIC, GGT, IRON, FERR, B12, SERFOL, AFP, MMA #### [place] [phone] #### VITB6 #### [facility] [address] [address] [phone] VITAMIN B12 Collected: 11/17/2017 Status: F Source: [place] 9:50 AM [facility] REPOSITORY TYPE CODE TESTS RESULT OUT OF REFERENCE UNITS RANGE LAB B12 232-1245 pg/mL Vitamin B12 656 Performed By: #### PT, RETIC, GGT, IRON, FERR, B12, SERFOL, AFP, MMA #### [place] [address] #### VITB6 #### [facility] [address] [place] [address] [phone] FOLATE, SERUM Collected: 11/17/2017 Status: F Source: [place] 9:50 AM [facility] REPOSITORY TYPE CODE TESTS RESULT OUT OF REFERENCE UNITS RANGE LAB SERFOL >4.7 ng/mL Folate, >20.0 Serum Result Comment: A result of > 20 ng/mL is not necessarily indicative of a pathologic or treatable condition: it reflects a limitation of the test methodology. Assay reference range: 4.8 to 24.2 ng/mL. Suitable for detection of folate deficiency. Reference: Folate III (Folate III) [package insert V 1.0 [place]ian]. [facility], [place], [place]: February 2015. Performed By: #### PT, RETIC, GGT, IRON, FERR, B12, SERFOL, AFP, MMA #### [facility] [address] [place] [phone] #### VITB6 #### [facility] [address] [place] [address] [phone] AFP Collected: 11/17/2017 Status: F Source: [place] 9:50 AM [facility] REPOSITORY TYPE CODE TESTS RESULT OUT OF RANGE REFERENCE UNITS LAB AFP <11 ng/mL AFP 7.4 Performed By: #### PT, RETIC, GGT, IRON, FERR, B12, SERFOL, AFP, MMA #### [place] [address] [place] [phone] #### VITB6 #### [facility] [address] [place] [address] [phone] VITAMIN B6 PLASMA Collected: 11/17/2017 Status: F Source: [place] 9:50 AM [facility] REPOSITORY TYPE CODE TESTS RESULT OUT OF REFERENCE UNITS RANGE LAB VITB6 20.0-125.0 nmol/L Vitamin B6 58.0 Plasma Result Comment: (NOTE) INTERPRETIVE INFORMATION: Vitamin B6 (Pyridoxal 5-Phosphate) Pyridoxal 5'-phosphate measured in a specimen collected following an 8-hour or overnight fast accurately indicates vitamin B6 nutritional status. Non-fasting specimen concentration reflects recent vitamin intake. Test developed and characteristics determined by [facility]. See Compliance Statement B: [facility] [facility]/ Performed by [facility], [address] [place] [address] [email or web address], Antwan Rivero MD, Lab. Director Performed By: #### PT, RETIC, GGT, IRON, FERR, B12, SERFOL, AFP, MMA #### [facility] [address] [address] #### VITB6 #### [facility] [address] [place] [address] [phone] METHYLMALONIC ACID Collected: 11/17/2017 Status: F Source: [place] 9:50 AM [facility] REPOSITORY TYPE CODE TESTS RESULT OUT OF REFERENCE UNITS RANGE LAB MMA 79-376 nmol/L Methylmalonic Acid 110 Result Comment: This test was developed and its performance characteristics determined by [facility]'s [facility] Path[facility] Laboratory Medicine [place] ([facility]). It has not been cleared or approved by the FDA. -[facility] is regulated under CLIA as qualified to perform high-complexity testing. This test is used for clinical purposes. It should not be regarded as investigational or for research. Performed By: #### PT, RETIC, GGT, IRON, FERR, B12, SERFOL, AFP, MMA #### [facility] [address] [place], [place] [address] #### VITB6 #### [address] [address] [phone] PROGRESS Observed: 11/14/2017 Status: COMPLETED Source: [place] 2:32 PM [facility] REPOSITORY HNO ID: [id number] Author: Trini (Reheater Helper) Podlogar Service: (none) Author Type: Nurse Practitioner Type: Progress Notes Filed: 11/15/2017 7:35 AM Note Text: 11/14/2017 Patient presents with: Rehab center discharge for alcohol abuse SUBJECTIVE: This is a 41 year old that is here today for Above Complaints. Sefl-admitted herself for ETOH rehab at [place] on Monday the and released on November 11. Gonzales been drinking since age of 16. No ETOH since home. Has been going to AA meetings daily. Is awaiting [facility] to call her for appointment. Has tried 180 int he past and not interested in going there. Patient does not have ETOH on her house. does not drink and is not hanging out with people who drink regularly. Does not plan on starting drinking at this time. Patient was at [facility] in May for ETOH withdrawal. She reports that was the first time she had sought rehab. Reports ammonia level was elevated while inpatient at [place]. Has not been taking lactulose. Reports she has juan trying to get in with Dr. Rojas for pancytopenia and has called several times to get appointment but no one answers. Reports has bleeding gums. Denies fever, chills, easy bruising, hemoptysis, hematuria, hematochezia, or melena. Component Latest Ref Rng AND Units 09/21/2017 WBC 3.70 - 11.00 k/uL 5.58 RBC 3.90 - 5.20 m/uL 3.85 (L) Hemoglobin 11.5 - 15.5 g/dL 10.4 (L) Hematocrit 36.0 - 46.0 % 34.0 (L) MCV 80.0 - 100.0 fL 88.3 MCH 26.0 - 34.0 pG 27.0 MCHC 30.5 - 36.0 g/dL 30.6 RDW-CV 11.5 - 15.0 % 14.5 Platelet Count 150 - 400 k/uL 85 (L) MPV 9.0 - 12.7 fL 10.6 Neut% % 61.8 Abs Neut (ANC) 1.45 - 7.50 k/uL 3.44 Lymph% % 26.2 Abs Lymph 1.00 - 4.00 k/uL 1.46 [place]% % 7.5 Abs [place] <0.87 k/uL 0.42 Eosin% % 4.1 Abs Eosin <0.46 k/uL 0.23 Baso% % 0.4 Abs Baso <0.11 k/uL <0.03 Nucleated Reds 0 /100 WBC 0.0 Absolute nRBC <0.01 k/uL <0.01 Diff Type Auto Diff Protein, Total 6.3 - 8.0 g/dL 7.4 Albumin 3.9 - 4.9 g/dL 3.8 (L) Calcium 8.5 - 10.2 mg/dL 9.1 Bilirubin, Total 0.2 - 1.3 mg/dL 1.4 (H) Alkaline Phosphatase 32 - 117 U/L 110 AST 13 - 35 U/L 37 (H) Glucose 74 - 99 mg/dL 93 BUN 7 - 21 mg/dL 13 Creatinine 0.58 - 0.96 mg/dL 0.59 Sodium 136 - 144 mmol/L 143 Potassium 3.7 - 5.1 mmol/L 3.7 Chloride 97 - 105 mmol/L 106 (H) CO2 22 - 30 mmol/L 21 (L) Anion Gap 9 - 18 mmol/L 16 ALT 7 - 38 U/L 25 eGFR- >60 eGFR-All Other Races . >60 Cholesterol, Total <200 mg/dL 152 Triglyceride <150 mg/dL 79 HDL Cholesterol >39 mg/dL 47 LDL Cholesterol <100 mg/dL 89 Non HDL Cholesterol <130 mg/dL 105 Fasting Time hrs 12 VLDL Cholesterol <30 mg/dL 16 TC:HDL Ratio <5.10 3.23 LDL:HDL Ratio <2.54 1.89 Creatinine, Ur Random (UCRR) 20 - 300 mg/dL 190.3 Albumin, Urine Random 0.0 - 23.0 mg/L 33.4 (H) Albumin/Creat Ratio 0 - 30 mg/g 18 Hemoglobin A1C 4.3 - 5.6 % 6.3 (H) Estimated Average Glucose mg/dL 134 Depression: Was place on Zoloft in june which she believes helped some. Tolerated cristy without side effects. Interested in increasing dose. Denies Si or HI. Feeling nervous, anxious, or on edge 1 Several days Not being able to stop or control worrying 1 Several days Worrying too much about different things 1 Several days Trouble relaxing 1 Several days Being so restless that it's hard to sit still 0 Not at all sure Being easily annoyed or irritable 0 Not at all sure Feeling afraid as if something awful might happen 1 Several days YANET-7 Anxiety Score 5 If you checked off any problems, how difficult have these problems made it for you to do your work, take care of things at home, or get along with other people? Somewhat difficult Little or no interest or pleasure in doing things 1 Several days Feeling down, depressed, or hopeless 1 Several days Trouble falling or staying asleep, or sleeping too much 1 Several days Feeling tired or having little energy 1 Several days Poor appetite or overeating 1 Several days Feeling bad about yourself- or that you are a failure or having let yourself or your family down 1 Several days Trouble concentrating on things, such as reading the newpaper or watching television 1 Several days Moving or speaking so slowly that other people could have noticed? Or the opposite- being so fidgety or restless that you have been moving around a lot more than usual 1 Several days Thoughts that you would be better off or of hurting yourself in some way 0 Not at all PHQ9P Score 8 If you checked off any problems, how difficult have these problems made it for you to do your work, take care of things at home, or get along with other people? 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 MEDICATIONS Current Outpatient Prescriptions: SUMAtriptan (IMITREX) 100 mg tablet Take 100 mg by mouth as needed. Omeprazole 40 mg capsule Take 1 capsule by mouth once daily. hydrOXYzine pamoate (VISTARIL) 50 mg capsule Take 1 capsule by mouth three times daily as needed. sertraline (ZOLOFT) 25 mg tablet Take 1 tablet by mouth once daily. metFORMIN (GLUCOPHAGE) 500 mg tablet Take 1 tablet by mouth twice daily with meals. traZODone (DESYREL) 50 mg tablet Take 1 tablet by mouth daily at bedtime. ibuprofen (MOTRIN) 800 mg tablet Take 800 mg by mouth every 6 hours as needed. fluticasone (FLONASE) 50 mcg/actuation nasal spray thiamine (VITAMIN B-1) 100 mg tablet Take 1 tablet by mouth once daily. folic acid 1 mg tablet Take 1 tablet by mouth once daily. lactulose (DUPHALAC, CONSTULOSE) 10 gram/15 mL solution No current facility-administered medications for this visit. Medications and allergies reviewed by this provider. SOCIAL HISTORY Social History Marital status: Spouse name: Years of education: Number of children: Social History Main Topics Smoking status: Former Smoker Packs/day: 0.00 Years: 0.00 Types: Cigarettes Quit date: 05/06/2017 Smokeless tobacco: Never Used Alcohol use: No Drug use: No Sexual activity: Yes control/protection: Injection REVIEW OF SYSTEMS GENERAL: No weight loss, malaise or fevers NECK: Negative for lumps, goiter, pain and significant neck swelling RESPIRATORY: Negative for cough, hemoptysis, wheezing, COPD, dyspnea or shortness of breath CARDIOVASCULAR: Negative for chest pain, leg swelling, hypertension, CHF or palpitations GI: No nausea, vomiting, or diarrhea and No heartburn or reflux symptoms SKIN: Negative for lesions, rash, and itching PSYCH: Negative for sleep disturbance, mood disorder and recent psychosocial stressors HEMATOLOGY/LYMPHOLOGY: See HPI All other reviewed and negative other than HPI. OBJECTIVE: BP 120/76 (BP Site: Left Arm, BP Position: Sitting, BP Cuff Size: Regular Adult) Pulse 68 Resp 18 Wt 74.9 kg (165 lb 0.6 oz) . Vital signs reviewed by this provider. APPEARANCE Well appearing, alert, in no acute distress, well-hydrated, well nourished. EYES PERRLA, conjunctiva and sclera normal. NECK Supple, no adenopathy; thyroid symmetric, normal size, no bruits HEART RRR with normal S1 and S2, no murmurs, no gallops, no JVD appreciated LUNG clear to auscultation. No wheezes, rhonchi, or rales ABDOMEN bowel sounds normoactive, no bruits, soft, non-tender, non-distended, without organomegaly or palpable masses, no tenderness to palpation EXTREMITIES Extremities normal, No deformities, No skin discoloration, No edema and Normal pulses bilaterally. SKIN Skin color, texture, turgor normal, no suspicious rashes or lesions PSYCH: Posture and motor behavior: normal posture and motor behavior Dress, grooming, personal hygiene: normal dress and grooming Facial expression: smiling Speech: normal speech Mood: cheerful Coherency and relevance of thought: normal thought processes Memory: normal memory ASSESSMENT/PLAN: 1. 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 Follow-up with [facility] and continue with AA. Avoid continues ETOH cessation - AMMONIA BLD - ALCOHOL/ETHANOL BLD - COMP METABOLIC PANEL 2. Depression, unspecified depression type - ICD9: 311, ICD10: F32.9 - increase Zoloft to 50 mg daily- tolerated 25 mg - Discussed concept of neurochemical imbalance [facility] depression/anxiety - Sleep Hygeine - advised counseling to improve management of stressors - Instructed patient to contact office or [id number] after-hours promptly should condition worsen or any new symptoms appear. - Counseling Center [facility] and after hours crisis line - [facility] or - encouraged counseling - follow-up in 4-6 weeks 3. Anxiety - ICD9: 300.00, ICD10: F41.9 -plan as above - HYDROXYZINE PAMOATE 50 MG CAPSULE 4. Pancytopenia (HCC) - ICD9: 284.19, ICD10: D61.818 - facilitated appointment with hemoc for November 17 - encouraged to get blood work ordered prior 5. Increased ammonia level - ICD9: 790.6, ICD10: R79.89 - ammonia level today - may need to restart lactulose Trini Downs, INTERIOR DESIGN COORDINATOR.KATHLEEN Prescription instructions reviewed with patient as applicable. Patient advised if symptoms do not improve or if symptoms worsen sooner, to contact their primary care physician. Potential red flag symptoms discussed with the patient. Reviewed appropriate action plan to take if red flag symptoms occur. Patient agreeable to treatment plan. CNOV Observed: 11/14/2017 Status: COMPLETED Source: [place] 2:20 PM [facility] REPOSITORY Office Visit (FAMPWS) POLO ALVES ([id number]) 1975 F Date Time Provider Department 11/14/17 2:20 PM TRINI DOWNS) FAMPWS During your visit today, we recorded the following information about you: Pulse Respiration Blood pressure Weight 68/minute 18/minute 120/76 74.9 kg Trini Downs APRN.KATHLEEN 11/15/2017 7:35 AM Signed 11/14/2017 Patient presents with: Rehab center discharge for alcohol abuse SUBJECTIVE: This is a 41 year old that is here today for Above Complaints. Sefl-admitted herself for ETOH rehab at [place] on Monday the and released on November 11. Gonzales been drinking since age of 16. No ETOH since home. Has been going to AA meetings daily. Is awaiting [facility] to call her for appointment. Has tried 180 int he past and not interested in going there. Patient does not have ETOH on her house. does not drink and is not hanging out with people who drink regularly. Does not plan on starting drinking at this time. Patient was at [facility] in May for ETOH withdrawal. She reports that was the first time she had sought rehab. Reports ammonia level was elevated while inpatient at [place]. Has not been taking lactulose. Reports she has juan trying to get in with Dr. Rojas for pancytopenia and has called several times to get appointment but no one answers. Reports has bleeding gums. Denies fever, chills, easy bruising, hemoptysis, hematuria, hematochezia, or melena. Component Latest Ref Rng AND Units 09/21/2017 WBC 3.70 - 11.00 k/uL 5.58 RBC 3.90 - 5.20 m/uL 3.85 (L) Hemoglobin 11.5 - 15.5 g/dL 10.4 (L) Hematocrit 36.0 - 46.0 % 34.0 (L) MCV 80.0 - 100.0 fL 88.3 MCH 26.0 - 34.0 pG 27.0 MCHC 30.5 - 36.0 g/dL 30.6 RDW-CV 11.5 - 15.0 % 14.5 Platelet Count 150 - 400 k/uL 85 (L) MPV 9.0 - 12.7 fL 10.6 Neut% % 61.8 Abs Neut (ANC) 1.45 - 7.50 k/uL 3.44 Lymph% % 26.2 Abs Lymph 1.00 - 4.00 k/uL 1.46 [place]% % 7.5 Abs [place] <0.87 k/uL 0.42 Eosin% % 4.1 Abs Eosin <0.46 k/uL 0.23 Baso% % 0.4 Abs Baso <0.11 k/uL <0.03 Nucleated Reds 0 /100 WBC 0.0 Absolute nRBC <0.01 k/uL <0.01 Diff Type Auto Diff Protein, Total 6.3 - 8.0 g/dL 7.4 Albumin 3.9 - 4.9 g/dL 3.8 (L) Calcium 8.5 - 10.2 mg/dL 9.1 Bilirubin, Total 0.2 - 1.3 mg/dL 1.4 (H) Alkaline Phosphatase 32 - 117 U/L 110 AST 13 - 35 U/L 37 (H) Glucose 74 - 99 mg/dL 93 BUN 7 - 21 mg/dL 13 Creatinine 0.58 - 0.96 mg/dL 0.59 Sodium 136 - 144 mmol/L 143 Potassium 3.7 - 5.1 mmol/L 3.7 Chloride 97 - 105 mmol/L 106 (H) CO2 22 - 30 mmol/L 21 (L) Anion Gap 9 - 18 mmol/L 16 ALT 7 - 38 U/L 25 eGFR- >60 eGFR-All Other Races . >60 Cholesterol, Total <200 mg/dL 152 Triglyceride <150 mg/dL 79 HDL Cholesterol >39 mg/dL 47 LDL Cholesterol <100 mg/dL 89 Non HDL Cholesterol <130 mg/dL 105 Fasting Time hrs 12 VLDL Cholesterol <30 mg/dL 16 TC:HDL Ratio <5.10 3.23 LDL:HDL Ratio <2.54 1.89 Creatinine, Ur Random (UCRR) 20 - 300 mg/dL 190.3 Albumin, Urine Random 0.0 - 23.0 mg/L 33.4 (H) Albumin/Creat Ratio 0 - 30 mg/g 18 Hemoglobin A1C 4.3 - 5.6 % 6.3 (H) Estimated Average Glucose mg/dL 134 Depression: Was place on Zoloft in june which she believes helped some. Tolerated cristy without side effects. Interested in increasing dose. Denies Si or HI. Feeling nervous, anxious, or on edge 1 Several days Not being able to stop or control worrying 1 Several days Worrying too much about different things 1 Several days Trouble relaxing 1 Several days Being so restless that it's hard to sit still 0 Not at all sure Being easily annoyed or irritable 0 Not at all sure Feeling afraid as if something awful might happen 1 Several days YANET-7 Anxiety Score 5 If you checked off any problems, how difficult have these problems made it for you to do your work, take care of things at home, or get along with other people? Somewhat difficult Little or no interest or pleasure in doing things 1 Several days Feeling down, depressed, or hopeless 1 Several days Trouble falling or staying asleep, or sleeping too much 1 Several days Feeling tired or having little energy 1 Several days Poor appetite or overeating 1 Several days Feeling bad about yourself- or that you are a failure or having let yourself or your family down 1 Several days Trouble concentrating on things, such as reading the newpaper or watching television 1 Several days Moving or speaking so slowly that other people could have noticed? Or the opposite- being so fidgety or restless that you have been moving around a lot more than usual 1 Several days Thoughts that you would be better off or of hurting yourself in some way 0 Not at all PHQ9P Score 8 If you checked off any problems, how difficult have these problems made it for you to do your work, take care of things at home, or get along with other people? 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 MEDICATIONS Current Outpatient Prescriptions: SUMAtriptan (IMITREX) 100 mg tablet Take 100 mg by mouth as needed. Omeprazole 40 mg capsule Take 1 capsule by mouth once daily. hydrOXYzine pamoate (VISTARIL) 50 mg capsule Take 1 capsule by mouth three times daily as needed. sertraline (ZOLOFT) 25 mg tablet Take 1 tablet by mouth once daily. metFORMIN (GLUCOPHAGE) 500 mg tablet Take 1 tablet by mouth twice daily with meals. traZODone (DESYREL) 50 mg tablet Take 1 tablet by mouth daily at bedtime. ibuprofen (MOTRIN) 800 mg tablet Take 800 mg by mouth every 6 hours as needed. fluticasone (FLONASE) 50 mcg/actuation nasal spray thiamine (VITAMIN B-1) 100 mg tablet Take 1 tablet by mouth once daily. folic acid 1 mg tablet Take 1 tablet by mouth once daily. lactulose (DUPHALAC, CONSTULOSE) 10 gram/15 mL solution No current facility-administered medications for this visit. Medications and allergies reviewed by this provider. SOCIAL HISTORY Social History Marital status: Spouse name: Years of education: Number of children: Social History Main Topics Smoking status: Former Smoker Packs/day: 0.00 Years: 0.00 Types: Cigarettes Quit date: 05/06/2017 Smokeless tobacco: Never Used Alcohol use: No Drug use: No Sexual activity: Yes control/protection: Injection REVIEW OF SYSTEMS GENERAL: No weight loss, malaise or fevers NECK: Negative for lumps, goiter, pain and significant neck swelling RESPIRATORY: Negative for cough, hemoptysis, wheezing, COPD, dyspnea or shortness of breath CARDIOVASCULAR: Negative for chest pain, leg swelling, hypertension, CHF or palpitations GI: No nausea, vomiting, or diarrhea and No heartburn or reflux symptoms SKIN: Negative for lesions, rash, and itching PSYCH: Negative for sleep disturbance, mood disorder and recent psychosocial stressors HEMATOLOGY/LYMPHOLOGY: See HPI All other reviewed and negative other than HPI. OBJECTIVE: BP 120/76 (BP Site: Left Arm, BP Position: Sitting, BP Cuff Size: Regular Adult) Pulse 68 Resp 18 Wt 74.9 kg (165 lb 0.6 oz) . Vital signs reviewed by this provider. APPEARANCE Well appearing, alert, in no acute distress, well- hydrated, well nourished. EYES PERRLA, conjunctiva and sclera normal. NECK Supple, no adenopathy; thyroid symmetric, normal size, no bruits HEART RRR with normal S1 and S2, no murmurs, no gallops, no JVD appreciated LUNG clear to auscultation. No wheezes, rhonchi, or rales ABDOMEN bowel sounds normoactive, no bruits, soft, non-tender, non-distended, without organomegaly or palpable masses, no tenderness to palpation EXTREMITIES Extremities normal, No deformities, No skin discoloration, No edema and Normal pulses bilaterally. SKIN Skin color, texture, turgor normal, no suspicious rashes or lesions PSYCH: Posture and motor behavior: normal posture and motor behavior Dress, grooming, personal hygiene: normal dress and grooming Facial expression: smiling Speech: normal speech Mood: cheerful Coherency and relevance of thought: normal thought processes Memory: normal memory ASSESSMENT/PLAN: 1. 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 Follow-up with [facility] and continue with AA. Avoid continues ETOH cessation - AMMONIA BLD - ALCOHOL/ETHANOL BLD - COMP METABOLIC PANEL 2. Depression, unspecified depression type - ICD9: 311, ICD10: F32.9 - increase Zoloft to 50 mg daily- tolerated 25 mg - Discussed concept of neurochemical imbalance [facility] depression/anxiety - Sleep Hygeine - advised counseling to improve management of stressors - Instructed patient to contact office or [id number] after- hours promptly should condition worsen or any new symptoms appear. - Counseling Center [facility] and after hours crisis line - [facility] phone number or - encouraged counseling - follow-up in 4-6 weeks 3. Anxiety - ICD9: 300.00, ICD10: F41.9 -plan as above - HYDROXYZINE PAMOATE 50 MG CAPSULE 4. Pancytopenia (HCC) - ICD9: 284.19, ICD10: D61.818 - facilitated appointment with [facility]oc for November 17 - encouraged to get blood work ordered prior 5. Increased ammonia level - ICD9: 790.6, ICD10: R79.89 - ammonia level today - may need to restart lactulose Trini Crystallogar, INTERIOR DESIGN COORDINATOR.ACID PUMPER Prescription instructions reviewed with patient as applicable. Patient advised if symptoms do not improve or if symptoms worsen sooner, to contact their primary care physician. Potential red flag symptoms discussed with the patient. Reviewed appropriate action plan to take if red flag symptoms occur. Patient agreeable to treatment plan. 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) [F10.21] Other Visit Diagnoses:Depression, unspecified depression type [F32.9] Anxiety [F41.9] Pancytopenia (HCC) [D61.818] Increased ammonia level [R79.89] Order(s):hydrOXYzine pamoate (VISTARIL) 50 mg capsuleTake 1 capsule by mouth three times daily as needed.Disp: 30 capsuleRfl: 0 sertraline (ZOLOFT) 50 mg tabletTake 1 tablet by mouth once daily.Disp: 30 tabletRfl: 3 AMMONIA BLD [SQNH3] Order #: [id number] FUTURE ALCOHOL/ETHANOL BLD [SQALCO] Order #: [id number] FUTURE COMP METABOLIC PANEL [SQCMP] Order #: [id number] FUTURE Prescriptions as of 11/14/2017 Sig: SUMATRIPTAN 100 MG TABLET Take 100 mg by mouth as neede* HYDROXYZINE PAMOATE 50 MG CAP* Take 1 capsule by mouth three* OMEPRAZOLE 40 MG CAPSULE,MARIBEL* Take 1 capsule by mouth once * METFORMIN 500 MG TABLET Take 1 tablet by mouth twice * TRAZODONE 50 MG TABLET Take 1 tablet by mouth daily * IBUPROFEN 800 MG TABLET Take 800 mg by mouth every 6 * FLUTICASONE 50 MCG/ACTUATION * THIAMINE HCL (VITAMIN B1) 100* Take 1 tablet by mouth once d* FOLIC ACID 1 MG TABLET Take 1 tablet by mouth once d* SERTRALINE 50 MG TABLET Take 1 tablet by mouth once d* Problem List As Of Date 11/14/2017 Noted Resolved Hyperammonemia (HCC) [E72.20] Diabetes mellitus, type II (HCC) [E11.9] Prediabetes [R73.03] 06/08/2017 Pancytopenia (HCC) [D61.818] INVALID FOR* Anxiety [F41.9] GERD (gastroesophageal reflux disease) [K21.9] Hepatosplenomegaly [R16.2] 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 SERTRALINE 50 MG TABLET 30 t* 3 11/14/2017 Route: ORAL Sig: Take 1 tablet by mouth once daily. Medications Discontinued During This Encounter lactulose (DUPHALAC, CONSTULOSE) 10 * 05/30/2017 11/14/2017 Class: Historical Med Sig: Disc: Course of therapy completed sertraline (ZOLOFT) 25 mg tablet 30 t* 5 10/09/2017 11/14/2017 Route: ORAL Sig: Take 1 tablet by mouth once daily. Disc: Changing Therapy/Dosage Form hydrOXYzine pamoate (VISTARIL) 50 mg* 30 c* 0 10/09/2017 11/14/2017 Route: ORAL Sig: Take 1 capsule by mouth three times daily as needed. Disc: Reason for discontinue is not on file. Follow-up and Disposition History Recorded Questionnaire: YANET-7 ANXIETY SCALE Feeling nervous, anxious, or on edge -> 1 Several days Not being able to stop or control worrying -> 1 Several days Worrying too much about different things -> 1 Several days Trouble relaxing -> 1 Several days Being so restless that it's hard to sit still -> 0 Not at all sure Being easily annoyed or irritable -> 0 Not at all sure Feeling afraid as if something awful might happen -> 1 Several days YANET-7 Anxiety Score -> 5 If you checked off any problems, how difficult have these problems made it for you to do your work, take care of things at home, or get along with other people? -> Somewhat difficult Questionnaire: PHQ9P Little or no interest or pleasure in doing things -> 1 Several days Feeling down, depressed, or hopeless -> 1 Several days Trouble falling or staying asleep, or sleeping too much - > 1 Several days Feeling tired or having little energy -> 1 Several days Poor appetite or overeating -> 1 Several days Feeling bad about yourself- or that you are a failure or having let yourself or your family down -> 1 Several days Trouble concentrating on things, such as reading the newpaper or watching television -> 1 Several days Moving or speaking so slowly that other people could have noticed? Or the opposite- being so fidgety or restless that you have been moving around a lot more than usual -> 1 Several days Thoughts that you would be better off or of hurting yourself in some way -> 0 N- o- t a- t a- ll PHQ9P Score -> 8 If you checked off any problems, how difficult have these problems made it for you to do your work, take care of things at home, or get along with other people? -> Somewhat difficult Encounter Status:Closed by TRINI DOWNS CNP on 11/15/17 PROGRESS Observed: 10/09/2017 Status: COMPLETED Source: [place] 9:06 AM [facility] REPOSITORY O ID: [id number] Author: Ruben Man) Bj Service: (none) Author Type: Physician Type: Progress Notes Filed: 10/09/2017 1:29 PM Note Text: Chief Complaint Patient presents with: F/U 3 Month: Chronic conditions HPI Polo Alves is a 41 year old female who presents here today for 3 month follow up. Alcoholism in remission: sober for about 6 months now. Following up with [facility] with counseling once per month and class once per week. No longer seeing Sara De La Cruz. Not going to and does not have a sponsor at this time. Admits to cravings occasionally. Still taking Thiamine and folate. Pancytopenia: Admits to occasional nose bleeds and bleeding gums. Denies hematuria, blood in stool. Has not yet followed up with hematology, has been unable to get appointment. Seen by Dr. Chappell for epistaxis who cauterized nasal vessels and symptoms have improved. Gum bleeding seems to occur spontaneously and is scant amount. Has not been seen by dentist recently. Denies pain, swelling or purulent discharge from gums. DM: A1C stable at 6.3. Taking metformin as prescribed without side effects. Denies worsening symptoms. Due for eye exam, needs to call to schedule yearly exam. 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 Ta and last pap was last month. Records not available. Has not heard back about results. Anxiety: controlled on SSRI and is using vistaril rarely. Denies side effects. Needs refills today. Past medical history, appointments, medications, allergies reviewed. 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) - Diabetes mellitus, type II (HCC) - Elevated LFTs - Gallstones - GERD (gastroesophageal reflux disease) - Gestational diabetes mellitus - Hepatic steatosis - Hepatosplenomegaly - Hyperammonemia (HCC) - Insomnia - Pancytopenia (HCC) 07/05/2017 - Recurrent genital herpes simplex type 1 infection diagnosed in 2012 - Thrombocytopenia (HCC) Previous Surgical History PAST SURGICAL HISTORY Procedure Laterality Date - LEEP PROCEDURE ([employer]IST DEPT)_*FL 2011 Family History FAMILY HISTORY Problem Relation Age of Onset - dementia [OTHER] Mother 50 - GI Father 35 Chron's - Alcohol/Drug Maternal Grandmother - Breast Cancer Maternal Grandmother 60 - Alzheimer's Disease Maternal Grandmother may not have been alzheimer's, but dementia - Alcohol/Drug Maternal Grandfather - Diabetes Paternal Grandmother - Heart Paternal Grandmother - Alcohol/Drug Paternal Grandfather - Alcohol/Drug Sister Patient Allergies ALLERGIES No Known Allergies Current Medications Current Outpatient Prescriptions on File Prior to Visit: hydrOXYzine pamoate (VISTARIL) 50 mg capsule Take 1 capsule by mouth three times daily as needed. sertraline (ZOLOFT) 25 mg tablet Take 1 tablet by mouth once daily. metFORMIN (GLUCOPHAGE) 500 mg tablet Take 1 tablet by mouth twice daily with meals. traZODone (DESYREL) 50 mg tablet Take 1 tablet by mouth daily at bedtime. Omeprazole 40 mg capsule Take 40 mg by mouth once daily. ibuprofen (MOTRIN) 800 mg tablet Take 800 mg by mouth every 6 hours as needed. lactulose (DUPHALAC, CONSTULOSE) 10 gram/15 mL solution fluticasone (FLONASE) 50 mcg/actuation nasal spray naltrexone ER (VIVITROL) 380 mg injection Inject 380 mg intramuscularly one time only. thiamine (VITAMIN B-1) 100 mg tablet Take 1 tablet by mouth once daily. folic acid 1 mg tablet Take 1 tablet by mouth once daily. No current facility-administered medications on file prior to visit. Social History Social History Marital status: Spouse name: Years of education: Number of children: Social History Main Topics Smoking status: Former Smoker Packs/day: 0.00 Years: 0.00 Types: Cigarettes Quit date: 05/06/2017 Smokeless tobacco: Never Used Alcohol use: No Drug use: No Sexual activity: Yes control/protection: Injection Review of Symptoms REVIEW OF SYSTEMS GENERAL: No weight loss, malaise or fevers RESPIRATORY: Negative for cough, hemoptysis, wheezing, COPD, dyspnea or shortness of breath CARDIOVASCULAR: Negative for chest pain, leg swelling, hypertension, CHF or palpitations GI: No nausea, vomiting, or diarrhea SKIN: Negative for lesions, rash, and itching EXAM: BP 118/78 Pulse 60 Resp 16 Wt 74.8 kg (165 lb) General Appearance: Well appearing, alert, in no acute distress, well-hydrated, well nourished.. Skin: Skin color, texture, turgor normal, no suspicious rashes or lesions. Oropharynx: Lips, mucosa, and tongue normal, teeth and gums normal, oropharynx normal. Lungs: Lungs clear to auscultation. No wheezing, rhonchi, rales. Heart: RRR without murmur, gallop, or rubs. No ectopy. Extremities: No deformities, edema, skin discoloration, clubbing or cyanosis. Good capillary refill. . Health Maintenance List DILATED RETINAL EXAM due on 01/04/1978 ONE PNEUMOVAX PRIOR TO AGE 65 due on 1993 DTAP,TDAP,TD(1 - Tdap) due on 1996 PAP EVERY 5 YEARS due on 12/05/2007 HPV EVERY 5 YEARS due on 12/05/2007 HBA1C due on 03/23/2018 DIABETIC FOOT EXAM due on 07/04/2018 URINE ALBUMIN CREATININE RATIO due on 09/21/2018 LDL due on 09/21/2018 INFLUENZA Completed Data reviewed Component Latest Ref Rng AND Units 06/05/2017 06/12/2017 07/04/2017 09/21/2017 WBC 3.70 - 11.00 k/uL 4.29 1.89 (L) 5.58 RBC 3.90 - 5.20 m/uL 3.41 (L) 3.23 (L) 3.85 (L) Hemoglobin 11.5 - 15.5 g/dL 10.6 (L) 10.1 (L) 10.4 (L) Hematocrit 36.0 - 46.0 % 33.2 (L) 31.4 (L) 34.0 (L) MCV 80.0 - 100.0 fL 97.4 97.2 88.3 MCH 26.0 - 34.0 pG 31.1 31.3 27.0 MCHC 30.5 - 36.0 g/dL 31.9 32.2 30.6 RDW-CV 11.5 - 15.0 % 14.5 14.5 14.5 Platelet Count 150 - 400 k/uL 82 (L) 63 (L) 85 (L) MPV 9.0 - 12.7 fL 10.7 10.8 10.6 Neut% % 61.5 56.3 61.8 Abs Neut (ANC) 1.45 - 7.50 k/uL 2.63 1.06 (L) 3.44 Lymph% % 27.3 33.0 26.2 Abs Lymph 1.00 - 4.00 k/uL 1.17 0.62 (L) 1.46 [place]% % 6.5 2.7 7.5 Abs [place] <0.87 k/uL 0.28 0.05 0.42 Eosin% % 4.0 7.1 4.1 Abs Eosin <0.46 k/uL 0.17 0.13 0.23 Baso% % 0.7 0.9 0.4 Abs Baso <0.11 k/uL 0.03 0.02 <0.03 Nucleated Reds 0 /100 WBC 0.0 0.0 Absolute nRBC <0.01 k/uL <0.01 <0.01 Diff Type Auto Diff Manual Diff Auto Diff Ovalocytes Few Platelet Estimate Platelet estimate decreased Protein, Total 6.3 - 8.0 g/dL 7.1 7.4 Albumin 3.9 - 4.9 g/dL 3.4 (L) 3.8 (L) Calcium 8.5 - 10.2 mg/dL 9.4 9.1 Bilirubin, Total 0.2 - 1.3 mg/dL 2.2 (H) 1.4 (H) Alkaline Phosphatase 32 - 117 U/L 99 110 AST 13 - 35 U/L 86 (H) 37 (H) Glucose 74 - 99 mg/dL 157 (H) 93 BUN 7 - 21 mg/dL 12 13 Creatinine 0.58 - 0.96 mg/dL 0.50 (L) 0.59 Sodium 136 - 144 mmol/L 144 143 Potassium 3.7 - 5.1 mmol/L 3.6 (L) 3.7 Chloride 97 - 105 mmol/L 108 (H) 106 (H) CO2 22 - 30 mmol/L 17 (L) 21 (L) Anion Gap 9 - 18 mmol/L 19 (H) 16 ALT 7 - 38 U/L 42 (H) 25 eGFR- >60 >60 eGFR-All Other Races . >60 >60 Cholesterol, Total <200 mg/dL 152 Triglyceride <150 mg/dL 79 HDL Cholesterol >39 mg/dL 47 LDL Cholesterol <100 mg/dL 89 Non HDL Cholesterol <130 mg/dL 105 Fasting Time hrs 12 VLDL Cholesterol <30 mg/dL 16 TC:HDL Ratio <5.10 3.23 LDL:HDL Ratio <2.54 1.89 Hep B Core Ab, Total Negative Negative Hep C Antibody IA Negative Negative Hep B Surface Ag Negative Negative Hep B Surface Ab, Qual Negative Positive (A) Creatinine, Ur Random (UCRR) 20 - 300 mg/dL 190.3 Albumin, Urine Random 0.0 - 23.0 mg/L 33.4 (H) Albumin/Creat Ratio 0 - 30 mg/g 18 Hemoglobin A1C 4.3 - 5.6 % 6.4 (H) 6.3 (H) Estimated Average Glucose mg/dL 137 134 PT Sec 9.7 - 13.0 sec 12.4 PT INR 0.9 - 1.3 1.2 Ethanol <11 mg/dL <11 Ammonia 11 - 38 umol/L 26 HIV 12 Combo (Ag/Ab) Non Reactive Non Reactive ASSESSMENT/PLAN: 1. Pancytopenia (HCC) - ICD9: 284.19, ICD10: D61.818 (primary diagnosis) Stable. Patient to schedule appointment with hematology. Will follow up recommendations. 2. Bleeding gums - ICD9: 523.8, ICD10: K06.8 Likely 2/2 #1. See above. 3. Epistaxis - ICD9: 784.7, ICD10: R04.0 Improved s/p cauterization. 4. Type 2 diabetes mellitus without complication, without long-term current use of insulin (HCC) - ICD9: 250.00, ICD10: E11.9 Controlled. - Continue current medications - Blood glucose monitoring on a once a day schedule - Encouraged regular aerobic exercise and weight loss - Follow up in 3 months, sooner should any other issues arise. 5. Anxiety - ICD9: 300.00, ICD10: F41.9 Controlled on current regimen. Will call in refills. - HYDROXYZINE PAMOATE 50 MG CAPSULE - SERTRALINE 25 MG TABLET 6. Gastroesophageal reflux disease, esophagitis presence not specified - ICD9: 530.81, ICD10: K21.9 - Continue treatment with Prilosec 40 mg QD 7. Alcoholism in remission (HCC) - ICD9: 303.93, ICD10: F10.21 Sober almost 6 months. Follow up with [facility]. Ruben Lorenzo MD CNOV Observed: 10/09/2017 Status: COMPLETED Source: [place] 9:00 AM [facility] REPOSITORY Office Visit (FAMPWS) POLO ALVES ([id number]) 1975 F Date Time Provider Department 10/09/17 9:00 AM RUBEN LORENZO) FAMWS During your visit today, we recorded the following information about you: Pulse Respiration Blood pressure Weight 60/minute 16/minute 118/78 74.8 kg Ruben Lorenzo MD 10/09/2017 1:29 PM Signed Chief Complaint Patient presents with: F/U 3 Month: Chronic conditions HPI Polo Alves is a 41 year old female who presents here today for 3 month follow up. Alcoholism in remission: sober for about 6 months now. Following up with [facility] with counseling once per month and class once per week. No longer seeing Sara De La Cruz. Not going to and does not have a sponsor at this time. Admits to cravings occasionally. Still taking Thiamine and folate. Pancytopenia: Admits to occasional nose bleeds and bleeding gums. Denies hematuria, blood in stool. Has not yet followed up with hematology, has been unable to get appointment. Seen by Dr. Chappell for epistaxis who cauterized nasal vessels and symptoms have improved. Gum bleeding seems to occur spontaneously and is scant amount. Has not been seen by dentist recently. Denies pain, swelling or purulent discharge from gums. DM: A1C stable at 6.3. Taking metformin as prescribed without side effects. Denies worsening symptoms. Due for eye exam, needs to call to schedule yearly exam. 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 Ta and last pap was last month. Records not available. Has not heard back about results. Anxiety: controlled on SSRI and is using vistaril rarely. Denies side effects. Needs refills today. Past medical history, appointments, medications, allergies reviewed. 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) - Diabetes mellitus, type II (HCC) - Elevated LFTs - Gallstones - GERD (gastroesophageal reflux disease) - Gestational diabetes mellitus - Hepatic steatosis - Hepatosplenomegaly - Hyperammonemia (HCC) - Insomnia - Pancytopenia (HCC) 07/05/2017 - Recurrent genital herpes simplex type 1 infection diagnosed in 2012 - Thrombocytopenia (HCC) Previous Surgical History PAST SURGICAL HISTORY Procedure Laterality Date - LEEP PROCEDURE ([employer] DEPT)_*FL 2011 Family History FAMILY HISTORY Problem Relation Age of Onset - dementia [OTHER] Mother 50 - GI Father 35 Chron's - Alcohol/Drug Maternal Grandmother - Breast Cancer Maternal Grandmother 60 - Alzheimer's Disease Maternal Grandmother may not have been alzheimer's, but dementia - Alcohol/Drug Maternal Grandfather - Diabetes Paternal Grandmother - Heart Paternal Grandmother - Alcohol/Drug Paternal Grandfather - Alcohol/Drug Sister Patient Allergies ALLERGIES No Known Allergies Current Medications Current Outpatient Prescriptions on File Prior to Visit: hydrOXYzine pamoate (VISTARIL) 50 mg capsule Take 1 capsule by mouth three times daily as needed. sertraline (ZOLOFT) 25 mg tablet Take 1 tablet by mouth once daily. metFORMIN (GLUCOPHAGE) 500 mg tablet Take 1 tablet by mouth twice daily with meals. traZODone (DESYREL) 50 mg tablet Take 1 tablet by mouth daily at bedtime. Omeprazole 40 mg capsule Take 40 mg by mouth once daily. ibuprofen (MOTRIN) 800 mg tablet Take 800 mg by mouth every 6 hours as needed. lactulose (DUPHALAC, CONSTULOSE) 10 gram/15 mL solution fluticasone (FLONASE) 50 mcg/actuation nasal spray naltrexone ER (VIVITROL) 380 mg injection Inject 380 mg intramuscularly one time only. thiamine (VITAMIN B-1) 100 mg tablet Take 1 tablet by mouth once daily. folic acid 1 mg tablet Take 1 tablet by mouth once daily. No current facility-administered medications on file prior to visit. Social History Social History Marital status: Spouse name: Years of education: Number of children: Social History Main Topics Smoking status: Former Smoker Packs/day: 0.00 Years: 0.00 Types: Cigarettes Quit date: 05/06/2017 Smokeless tobacco: Never Used Alcohol use: No Drug use: No Sexual activity: Yes control/protection: Injection Review of Symptoms REVIEW OF SYSTEMS GENERAL: No weight loss, malaise or fevers RESPIRATORY: Negative for cough, hemoptysis, wheezing, COPD, dyspnea or shortness of breath CARDIOVASCULAR: Negative for chest pain, leg swelling, hypertension, CHF or palpitations GI: No nausea, vomiting, or diarrhea SKIN: Negative for lesions, rash, and itching EXAM: BP 118/78 Pulse 60 Resp 16 Wt 74.8 kg (165 lb) General Appearance: Well appearing, alert, in no acute distress, well-hydrated, well nourished.. Skin: Skin color, texture, turgor normal, no suspicious rashes or lesions. Oropharynx: Lips, mucosa, and tongue normal, teeth and gums normal, oropharynx normal. Lungs: Lungs clear to auscultation. No wheezing, rhonchi, rales. Heart: RRR without murmur, gallop, or rubs. No ectopy. Extremities: No deformities, edema, skin discoloration, clubbing or cyanosis. Good capillary refill. . Health Maintenance List DILATED RETINAL EXAM due on 01/04/1978 ONE PNEUMOVAX PRIOR TO AGE 65 due on 1993 DTAP,TDAP,TD(1 - Tdap) due on 1996 PAP EVERY 5 YEARS due on 12/05/2007 HPV EVERY 5 YEARS due on 12/05/2007 HBA1C due on 03/23/2018 DIABETIC FOOT EXAM due on 07/04/2018 URINE ALBUMIN CREATININE RATIO due on 09/21/2018 LDL due on 09/21/2018 INFLUENZA Completed Data reviewed Component Latest Ref Rng AND Units 06/05/2017 06/12/2017 07/04/2017 09/21/2017 WBC 3.70 - 11.00 k/uL 4.29 1.89 (L) 5.58 RBC 3.90 - 5.20 m/uL 3.41 (L) 3.23 (L) 3.85 (L) Hemoglobin 11.5 - 15.5 g/dL 10.6 (L) 10.1 (L) 10.4 (L) Hematocrit 36.0 - 46.0 % 33.2 (L) 31.4 (L) 34.0 (L) MCV 80.0 - 100.0 fL 97.4 97.2 88.3 MCH 26.0 - 34.0 pG 31.1 31.3 27.0 MCHC 30.5 - 36.0 g/dL 31.9 32.2 30.6 RDW-CV 11.5 - 15.0 % 14.5 14.5 14.5 Platelet Count 150 - 400 k/uL 82 (L) 63 (L) 85 (L) MPV 9.0 - 12.7 fL 10.7 10.8 10.6 Neut% % 61.5 56.3 61.8 Abs Neut (ANC) 1.45 - 7.50 k/uL 2.63 1.06 (L) 3.44 Lymph% % 27.3 33.0 26.2 Abs Lymph 1.00 - 4.00 k/uL 1.17 0.62 (L) 1.46 [place]% % 6.5 2.7 7.5 Abs [place] <0.87 k/uL 0.28 0.05 0.42 Eosin% % 4.0 7.1 4.1 Abs Eosin <0.46 k/uL 0.17 0.13 0.23 Baso% % 0.7 0.9 0.4 Abs Baso <0.11 k/uL 0.03 0.02 <0.03 Nucleated Reds 0 /100 WBC 0.0 0.0 Absolute nRBC <0.01 k/uL <0.01 <0.01 Diff Type Auto Diff Manual Diff Auto Diff Ovalocytes Few Platelet Estimate Platelet estimate decreased Protein, Total 6.3 - 8.0 g/dL 7.1 7.4 Albumin 3.9 - 4.9 g/dL 3.4 (L) 3.8 (L) Calcium 8.5 - 10.2 mg/dL 9.4 9.1 Bilirubin, Total 0.2 - 1.3 mg/dL 2.2 (H) 1.4 (H) Alkaline Phosphatase 32 - 117 U/L 99 110 AST 13 - 35 U/L 86 (H) 37 (H) Glucose 74 - 99 mg/dL 157 (H) 93 BUN 7 - 21 mg/dL 12 13 Creatinine 0.58 - 0.96 mg/dL 0.50 (L) 0.59 Sodium 136 - 144 mmol/L 144 143 Potassium 3.7 - 5.1 mmol/L 3.6 (L) 3.7 Chloride 97 - 105 mmol/L 108 (H) 106 (H) CO2 22 - 30 mmol/L 17 (L) 21 (L) Anion Gap 9 - 18 mmol/L 19 (H) 16 ALT 7 - 38 U/L 42 (H) 25 eGFR- >60 >60 eGFR-All Other Races . >60 >60 Cholesterol, Total <200 mg/dL 152 Triglyceride <150 mg/dL 79 HDL Cholesterol >39 mg/dL 47 LDL Cholesterol <100 mg/dL 89 Non HDL Cholesterol <130 mg/dL 105 Fasting Time hrs 12 VLDL Cholesterol <30 mg/dL 16 TC:HDL Ratio <5.10 3.23 LDL:HDL Ratio <2.54 1.89 Hep B Core Ab, Total Negative Negative Hep C Antibody IA Negative Negative Hep B Surface Ag Negative Negative Hep B Surface Ab, Qual Negative Positive (A) Creatinine, Ur Random (UCRR) 20 - 300 mg/dL 190.3 Albumin, Urine Random 0.0 - 23.0 mg/L 33.4 (H) Albumin/Creat Ratio 0 - 30 mg/g 18 Hemoglobin A1C 4.3 - 5.6 % 6.4 (H) 6.3 (H) Estimated Average Glucose mg/dL 137 134 PT Sec 9.7 - 13.0 sec 12.4 PT INR 0.9 - 1.3 1.2 Ethanol <11 mg/dL <11 Ammonia 11 - 38 umol/L 26 HIV 12 Combo (Ag/Ab) Non Reactive Non Reactive ASSESSMENT/PLAN: 1. Pancytopenia (HCC) - ICD9: 284.19, ICD10: D61.818 (primary diagnosis) Stable. Patient to schedule appointment with hematology. Will follow up recommendations. 2. Bleeding gums - ICD9: 523.8, ICD10: K06.8 Likely 2/2 #1. See above. 3. Epistaxis - ICD9: 784.7, ICD10: R04.0 Improved s/p cauterization. 4. Type 2 diabetes mellitus without complication, without long-term current use of insulin (HCC) - ICD9: 250.00, ICD10: E11.9 Controlled. - Continue current medications - Blood glucose monitoring on a once a day schedule - Encouraged regular aerobic exercise and weight loss - Follow up in 3 months, sooner should any other issues arise. 5. Anxiety - ICD9: 300.00, ICD10: F41.9 Controlled on current regimen. Will call in refills. - HYDROXYZINE PAMOATE 50 MG CAPSULE - SERTRALINE 25 MG TABLET 6. Gastroesophageal reflux disease, esophagitis presence not specified - ICD9: 530.81, ICD10: K21.9 - Continue treatment with Prilosec 40 mg QD 7. Alcoholism in remission (HCC) - ICD9: 303.93, ICD10: F10.21 Sober almost 6 months. Follow up with [facility]. Ruben Lorenzo MD Referring Provider: MEGHAN SHER ([facility]) [[id number]] Allergies As of Date: 10/09/2017 (No Known Allergies) Date Reviewed: 10/09/2017 Reviewed by: Juan Mckenzie Ma - Fully Assessed Reason for Visit: F/U 3 Month [443] Cmt: Chronic conditions Primary Visit Diagnosis:Pancytopenia (HCC) [D61.818] Other Visit Diagnoses:Bleeding gums [K06.8] Epistaxis [R04.0] Type 2 diabetes mellitus without complication, without long-term current use of insulin (HCC) [E11.9] Anxiety [F41.9] Gastroesophageal reflux disease, esophagitis presence not specified [K21.9] Alcoholism in remission (HCC) [F10.21] Order(s):Omeprazole 40 mg capsuleTake 1 capsule by mouth once daily.Disp: 30 capsuleRfl: 5 hydrOXYzine pamoate (VISTARIL) 50 mg capsuleTake 1 capsule by mouth three times daily as needed.Disp: 30 capsuleRfl: 0 sertraline (ZOLOFT) 25 mg tabletTake 1 tablet by mouth once daily.Disp: 30 tabletRfl: 5 Prescriptions as of 10/09/2017 Sig: OMEPRAZOLE 40 MG CAPSULE,MARIBEL* Take 1 capsule by mouth once * HYDROXYZINE PAMOATE 50 MG CAP* Take 1 capsule by mouth three* SERTRALINE 25 MG TABLET Take 1 tablet by mouth once d* METFORMIN 500 MG TABLET Take 1 tablet by mouth twice * TRAZODONE 50 MG TABLET Take 1 tablet by mouth daily * IBUPROFEN 800 MG TABLET Take 800 mg by mouth every 6 * FLUTICASONE 50 MCG/ACTUATION * THIAMINE HCL (VITAMIN B1) 100* Take 1 tablet by mouth once d* FOLIC ACID 1 MG TABLET Take 1 tablet by mouth once d* LACTULOSE 10 GRAM/15 ML ORAL * Problem List As Of Date 10/09/2017 Noted Resolved Hyperammonemia (HCC) [E72.20] Diabetes mellitus, type II (HCC) [E11.9] Prediabetes [R73.03] 06/08/2017 Pancytopenia (HCC) [D61.818] INVALID FOR* Anxiety [F41.9] GERD (gastroesophageal reflux disease) [K21.9] Hepatosplenomegaly [R16.2] Alcoholism in remission (HCC) [F10.21] Prescriptions ordered this encounter Disp Refills Start End OMEPRAZOLE 40 MG CAPSULE,DELAYED REL* 30 c* 5 10/09/2017 Route: ORAL Sig: Take 1 capsule by mouth once daily. HYDROXYZINE PAMOATE 50 MG CAPSULE 30 c* 0 10/09/2017 Route: ORAL Sig: Take 1 capsule by mouth three times daily as needed. SERTRALINE 25 MG TABLET 30 t* 5 10/09/2017 Route: ORAL Sig: Take 1 tablet by mouth once daily. Medications Discontinued During This Encounter naltrexone ER (VIVITROL) 380 mg inje* 10/09/2017 Class: Historical Med Route: INTRAMUSCULAR Sig: Inject 380 mg intramuscularly one time only. Disc: Reason for discontinue is not on file. Omeprazole 40 mg capsule 10/09/2017 Class: Historical Med Route: ORAL Sig: Take 40 mg by mouth once daily. Disc: Reason for discontinue is not on file. hydrOXYzine pamoate (VISTARIL) 50 mg* 30 c* 0 07/04/2017 10/09/2017 Route: ORAL Sig: Take 1 capsule by mouth three times daily as needed. Disc: Reason for discontinue is not on file. sertraline (ZOLOFT) 25 mg tablet 30 t* 1 07/04/2017 10/09/2017 Route: ORAL Sig: Take 1 tablet by mouth once daily. Disc: Reason for discontinue is not on file. Disposition: Return in about 3 months (around 01/09/2018). Follow-up and Disposition History Recorded Encounter Status:Closed by RUBEN LORENZO MD on 10/09/17 ALBUMIN/CREAT RATIO Collected: 09/21/2017 Status: F Source: [place] 1:04 PM [facility] REPOSITORY TYPE CODE TESTS RESULT OUT OF REFERENCE UNITS RANGE LAB UCRR 20-300 mg/dL Creatinine,Ur 190.3 ine,Ran LAB UALBR 0.0-23.0 mg/L High Albumin Urine 33.4 Random LAB UALBCR 0-30 mg/g Albumin/Creat 18 Ratio Result Comment: 30 to 300 mg/g indicates an increased risk for diabetic nephropathy. Greater than 300 mg/g is consistent with clinical nephropathy. (Am J Kidney Disease 1995, 25:107) Performed By: #### UACR #### [facility] [address] [place] [address] CBC AND DIFFERENTIAL Collected: 09/21/2017 Status: F Source: [place] 12:56 PM [facility] REPOSITORY TYPE CODE TESTS RESULT OUT OF REFERENCE UNITS RANGE LAB WBC 3.70-11.00 k/uL WBC 5.58 LAB RBC 3.90-5.20 m/uL Low RBC 3.85 LAB HGB 11.5-15.5 g/dL Low Hemoglobin 10.4 LAB HCT 36.0-46.0 % Low Hematocrit 34.0 LAB MCV 80.0-100.0 fL MCV 88.3 LAB MCH 26.0-34.0 pG MCH 27.0 LAB MCHC 30.5-36.0 g/dL MCHC 30.6 LAB RDWCV 11.5-15.0 % RDW-CV 14.5 LAB PLTCT 150-400 k/uL Low Platelet Count 85 Result Comment: No clot detected. LAB MPV 9.0-12.7 fL MPV 10.6 LAB ANEUT % Neut% 61.8 LAB AANEUT 1.45-7.50 k/uL Abs Neut 3.44 LAB ALYMP % Lymph% 26.2 LAB AALYMP 1.00-4.00 k/uL Abs Lymph 1.46 LAB AMONO % [place]% 7.5 LAB AAMONO <0.87 k/uL Abs [place] 0.42 LAB AEOS % Eosin% 4.1 LAB AAEOS <0.46 k/uL Abs Eosin 0.23 LAB ABASO % Baso% 0.4 LAB AABASO <0.11 k/uL Abs Baso <0.03 LAB AUNRBC 0 /100 WBC NRBCs 0.0 LAB ABNRBC <0.01 k/uL Absolute nRBC <0.01 LAB DTYP DTYPE Auto Diff Performed By: #### CBCDIF, HBA1C, CMP, LIPB #### [facility] [address] [place] [address] HEMOGLOBIN A1C Collected: 09/21/2017 Status: F Source: [place] 12:56 [facility] REPOSITORY TYPE CODE TESTS RESULT OUT OF REFERENCE UNITS RANGE LAB HGBA1C 4.3-5.6 % High Hemoglobin A1c 6.3 LAB HBA0 mg/dL Est. Average Glucose 134 Result Comment: eAG: (Estimated average glucose) is a calculated value from HgbA1c and is loss prevention representative of the average blood glucose level in the last 2-3 month period. Performed By: #### CBCDIF, HBA1C, CMP, LIPB #### [facility] [place] [address] COMP METABOLIC PANEL Collected: 09/21/2017 Status: F Source: [place] 12:56 PM [facility] REPOSITORY TYPE CODE TESTS RESULT OUT OF REFERENCE UNITS RANGE LAB TP 6.3-8.0 g/dL Protein, Total 7.4 LAB ALB 3.9-4.9 g/dL Low Albumin 3.8 LAB CA 8.5-10.2 mg/dL Calcium, Total 9.1 LAB TBIL 0.2-1.3 mg/dL Bilirubin, High Total 1.4 LAB ALKP 32-117 U/L Alkaline Phosphatase 110 LAB AST 13-35 U/L AST High 37 LAB GLU 74-99 mg/dL Glucose 93 Result Comment: The [place] [employer] (ADA) provides guidance for cutoff values for fasting glucose and random glucose. The ADA defines fasting as no caloric intake for at least 8 hours. Fas ting plasma glucose results between 100 to 125 mg/dL indicate increased risk for diabetes (prediabetes). Fasting plasma glucose results greater than or equal to 126 mg/dL meet the criteria for diagnosis of diabetes. In the absence of unequivocal hyperglycemia, results should be confirmed by repeat testing. In a patient with classic symptoms of hyperglycemia or hyperglycemic crisis, random plasma glucose results greater than or equal to 200 mg/dL meet the criteria for diagnosis of diabetes. Reference: Standards of Medical Care in Diabetes 2016, [place] [employer]. Diabetes Care. 2016.39(Suppl 1). LAB BUN 7-21 mg/dL BUN 13 LAB CRET 0.58-0.96 mg/dL Creatinine 0.59 LAB NA 136-144 mmol/L Sodium 143 LAB K 3.7-5.1 mmol/L Potassium 3.7 LAB CL 97-105 mmol/L Chloride High 106 LAB CO2 22-30 mmol/L Low CO2 21 LAB AGAP 9-18 mmol/L Anion Gap 16 LAB ALT 7-38 U/L ALT 25 LAB GFRAA eGFR- Amer. >60 LAB GFRNAA . eGFR-All Other Races >60 Result Comment: eGFR (Estimated GFR) Units of measure: mL/min/1.73 meters squared eGFR is derived from the reexpressed MDRD Study equation using the following parameters: serum creatinine, age, gender and race. The creatinine assay has been calibrated to be traceable to IDMS. An eGFR <60 mL/min/1.73m2 for >3 months is consistent with chronic kidney disease. Refer to KDOQI guidelines for clinical interpretation. In patients with unstable renal function, e.g. those with acute kidney injury, the eGFR may not accurately reflect actual GFR. Performed By: #### CBCDIF, HBA1C, CMP, LIPB #### [facility] [address] [place], [place] [address] LIPID PANEL, BASIC Collected: 09/21/2017 Status: F Source: [place] 12:56 PM [facility] REPOSITORY TYPE CODE TESTS RESULT OUT OF REFERENCE UNITS RANGE LAB CHOL <200 mg/dL Cholesterol 152 Result Comment: <200 mg/dL, Desirable 200-239 mg/dL, Borderline high >239 mg/dL, High LAB TRIGLY <150 mg/dL Triglyceride 79 Result Comment: <150 mg/dL, Normal 150-199 mg/dL, Borderline high 200-499 mg/dL, High >499 mg/dL, Very high LAB HDL >39 mg/dL HDL-Cholesterol 47 Result Comment: 40-59 mg/dL, Acceptable >59 mg/dL, High: Negative risk factor for coronary heart disease <40 mg/dL, Low: Positive risk factor for coronary heart disease LAB LDL <100 mg/dL LDL-Cholesterol 89 Result Comment: <100 mg/dL, Optimal 100-129 mg/dL, Near optimal/above optimal 130-159 mg/dL, Borderline high 160-189 mg/dL, High >189 mg/dL, Very high Secondary prevention optimal LDL Cholesterol levels are recommended to be < 70 mg/dL LAB NONHDL <130 mg/dL Non HDL Cholesterol 105 Result Comment: <130 mg/dL, Optimal 130-159 mg/dL, Near optimal/above optimal 160-189 mg/dL, Borderline high 190-219 mg/dL, High >219 mg/dL, Very high Secondary prevention optimal non HDL Cholesterol levels are recommended to be < 100 mg/dL LAB FT hrs Fasting Time 12 LAB VLDL <30 mg/dL VLDL Cholesterol 16 LAB TCHDL <5.10 TC:HDL Ratio 3.23 LAB LDLHDL <2.54 LDL:HDL Ratio 1.89 Result Comment: Reference: 1. National Cholesterol Education Program ATP III Guideline At-A-Glance Quick Desk Reference: National Heart, Lung, and Blood Maceo. National Institutes of Health. 2001: NIH Publication No. 01-3305. 2. An International Atherosclerosis Society position paper: global recommendations for the management of dyslipidemia: executive summary, Atherosclerosis. 2014: 232(2):410-413. Performed By: #### CBCDIF, HBA1C, CMP, LIPB #### [facility] [address] [place], [place] [address] PAP I-G W/RFX HRHPV Collected: 09/15/2017 Status: F Source: [place] 10:15 AM [facility] REPOSITORY Order Comment: CYTOLOGY INFORMATION: - CLINICAL INFORMATION: - DATE LMP/MENOPAUSE: NO MENSES GIVEN LMP - COLLECTION VIAL: Thin Prep Vial - LEARNING SOLUTIONS SPECIALIST SOURCE: CERVICAL/ENDOCERVICAL - COLLECTION TECHNIQUE: BRUSH/SPATULA Specimen Comment: [id number] Specimen Comment: No. of containers..01 ThinPrep Vial TYPE CODE TESTS RESULT OUT OF RANGE REFERENCE UNITS LAB L7400.0800 . Normal DIAGN Comment Result Comment: NEGATIVE FOR INTRAEPITHELIAL LESION AND MALIGNANCY. CELLULAR CHANGES ASSOCIATED WITH INFLAMMATION ARE PRESENT. THIS SPECIMEN WAS RESCREENED PART OF [employer] [facility] COMMISSIONER PROGRAM. LAB L7400.0900 . Normal ADEQ Comment Result Comment: Satisfactory for evaluation. Endocervical and/or squamous metaplastic cells (endocervical component) are present. LAB L7400.1400 . Normal PERFORM Comment Result Comment: Katy Loaiza, Reliability Manager ([facility]) LAB L7400.1500 . Normal QC Comment REV Result Comment: Nancy Maurice, Supervisory Reliability Manager ([facility]) LAB L7400.2575 . Normal TEST METHOD Comment Result Comment: This liquid based ThinPrep(R) pap test was screened with the use of an image guided system. LAB L7400.2600 . Normal . COMM LAB L7400.2700 . Normal PAPSMR Comment Result Comment: The Pap smear is a screening test designed to aid in the detection of premalignant and malignant conditions of the uterine cervix. It is not a diagnostic procedure and should not be used as the sole means of detecting cervical cancer. Both false-positive and false-negative reports do occur. LAB L7400.2800 . Normal HPV RFLX Comment Result Comment: The HPV DNA reflex criteria were not met with this specimen result therefore, no HPV testing was performed. Performed at: [address] [id number] [employer]p Talent Management: Mary Alice Christie MD, Phone: [phone] Performed By: #### L7400.0350 #### [facility]er to [facility] for specific site[facility] refer to report for address and phone number CNPN Observed: 07/05/2017 Status: COMPLETED Source: [place] 12:00 AM [facility] REPOSITORY Telephone (FAMPWS) POLO ALVES ([id number]) 1975 F Date Time Provider Department 07/05/17 MEGHAN SHER (KATHLEEN) JOSHUA During your visit today, we recorded the following information about you: Meghan Sher APRN.CNP, APRN.CNP 07/05/2017 8:36 AM Signed Blood counts are lower than a month ago now showing what is called pancytopenia. This is not new for the patient, she showed this in blood work a year ago as well. It could be related to the alcohol use, but warrants further work up. I would like to make a referral to hematology at this point. Please assist in scheduling. Meghan Sher APRN.CNP Telephone on 07/05/17 -CONSULT TO HEMATOLOGY Jodee Xavier Ma 07/05/2017 3:51 PM Signed Unable to reach patient. not yet set up. TC to Juan. Unable to reach spouse. Left to have return call to office. Jodee Soriano LPN 07/05/2017 4:25 PM Signed Patient returned call and went over results, notes from Meghan Sher TAPPING MACHINE OPERATOR AUTOMATIC with understanding, assisted with transfer to surgical scheduler to get appt set up. Rajani Stephens, ALEXIS 07/05/2017 4:33 PM Signed Routed new patient message to hem/onc for review Allergies As of Date: 07/05/2017 (No Known Allergies) Date Reviewed: 07/04/2017 Reviewed by: Luz Marina Barker LPN - Fully Assessed Reason for Visit: Results [95] Primary Visit Diagnosis:Pancytopenia (HCC) [D61.818] Order(s):CONSULT TO HEMATOLOGY [9014] Order #: [id number]: 1 Prescriptions as of 07/05/2017 Sig: HYDROXYZINE PAMOATE 50 MG CAP* Take 1 capsule by mouth three* SERTRALINE 25 MG TABLET Take 1 tablet by mouth once d* METFORMIN 500 MG TABLET Take 1 tablet by mouth twice * TRAZODONE 50 MG TABLET Take 1 tablet by mouth daily * OMEPRAZOLE 40 MG CAPSULE,MARIBEL* Take 40 mg by mouth once elma* IBUPROFEN 800 MG TABLET Take 800 mg by mouth every 6 * LACTULOSE 10 GRAM/15 ML ORAL * FLUTICASONE 50 MCG/ACTUATION * NALTREXONE ER 380 MG INTRAMUS* Inject 380 mg intramuscularly* THIAMINE HCL (VITAMIN B1) 100* Take 1 tablet by mouth once d* FOLIC ACID 1 MG TABLET Take 1 tablet by mouth once d* Problem List As Of Date 07/05/2017 Noted Resolved Hyperammonemia (HCC) [E72.20] Diabetes mellitus, type II (HCC) [E11.9] Prediabetes [R73.03] 06/08/2017 Pancytopenia (HCC) [D61.818] INVALID FOR* Encounter Status:Closed by VIRIDIANA SORIANO LPN on 07/05/17 NEFTALI Observed: 07/05/2017 Status: COMPLETED Source: J[place]NY[place] 12:00 AM [facility] REPOSITORY Telephone (DEREK) POLO ALVES ([id number]) 1975 F Date Time Provider Department 07/05/17 SJ ROJAS During your visit today, we recorded the following information about you: Rajani Stephens, PSR 07/05/2017 4:31 PM Signed New patient being referred to Hematology by Meghan hSer in [facility] for pancytopenia. Records are in [facility]. Please review and advise, thank you. Annalisa Giordano Psr 09/05/2017 3:38 PM Signed Please advise when patient can be seen still awaiting office call Mya Marsh LPN 09/05/2017 4:47 PM Signed Would you like this patient scheduled with Dr. Bowen? Please advise. Mya Rojas DO 09/06/2017 11:40 AM Signed Sure. DO Meghan Valenzuela 09/06/2017 11:47 AM Signed New patient referral received from Meghan Sher and given to Dr. Bowen to review. Meghan Muller 09/15/2017 4:26 PM Signed Left message for patient to contact office for message below. Please document and close when completed. Please schedule new patient appointment with Dr. Bowen. Please inform patient to arrive 1/2 hr prior to office visit for lab work. CBC/SMEAR/TAPPING MACHINE OPERATOR AUTOMATIC/PANCYTOPENIA/REFERRED BY MEGHAN HSER CNP* Lawanda Gonzalez 09/20/2017 12:22 PM Signed 2nd attempt made to schedule, left message for patient to call us back. Lawanda Burgerr Meghan Muller 11/14/2017 3:25 PM Signed PSR from Internal Medicine checkout called to schedule patient for 11/17. Allergies As of Date: 07/05/2017 (No Known Allergies) Date Reviewed: 07/04/2017 Reviewed by: Luz Marina Barker LPN - Fully Assessed Reason for Visit: New Patient [Other] Prescriptions as of 07/05/2017 Sig: X HYDROXYZINE PAMOATE 50 MG CAP* Take 1 capsule by mouth three* X SERTRALINE 25 MG TABLET Take 1 tablet by mouth once d* METFORMIN 500 MG TABLET Take 1 tablet by mouth twice * TRAZODONE 50 MG TABLET Take 1 tablet by mouth daily * IBUPROFEN 800 MG TABLET Take 800 mg by mouth every 6 * FLUTICASONE 50 MCG/ACTUATION * THIAMINE HCL (VITAMIN B1) 100* Take 1 tablet by mouth once d* FOLIC ACID 1 MG TABLET Take 1 tablet by mouth once d* X OMEPRAZOLE 40 MG CAPSULE,MARIBEL* Take 40 mg by mouth once elma* X LACTULOSE 10 GRAM/15 ML ORAL * X NALTREXONE ER 380 MG INTRAMUS* Inject 380 mg intramuscularly* Problem List As Of Date 07/05/2017 Noted Resolved Hyperammonemia (HCC) [E72.20] Diabetes mellitus, type II (HCC) [E11.9] Prediabetes [R73.03] 06/08/2017 Pancytopenia (HCC) [D61.818] INVALID FOR* Encounter Status:Closed by ALEXIS STEPHENS ALLISON on 07/12/17 CBC AND DIFFERENTIAL Collected: 07/04/2017 Status: F Source: [place] 10:51 AM [facility] REPOSITORY TYPE CODE TESTS RESULT OUT OF RANGE REFERENCE UNITS LAB WBC 3.70-11.00 k/uL Low WBC 1.89 Result Comment: Result checked and verified LAB RBC 3.90-5.20 m/uL RBC Low 3.23 LAB HGB 11.5-15.5 g/dL Hemoglobin Low 10.1 LAB HCT 36.0-46.0 % Hematocrit Low 31.4 LAB MCV 80.0-100.0 fL MCV 97.2 LAB MCH 26.0-34.0 pG MCH 31.3 LAB MCHC 30.5-36.0 g/dL MCHC 32.2 LAB RDWCV 11.5-15.0 % RDW-CV 14.5 LAB PLTCT 150-400 k/uL Platelet Low Count 63 Result Comment: No clot detected. LAB MPV 9.0-12.7 fL MPV 10.8 LAB ANEUT % Neut% 56.3 LAB AANEUT 1.45-7.50 k/uL Abs Neut 1.06 Low LAB ALYMP % Lymph% 33.0 LAB AALYMP 1.00-4.00 k/uL Abs 0.62 Low Lymph LAB AMONO % [place]% 2.7 LAB AAMONO <0.87 k/uL Abs [place] 0.05 LAB AEOS % Eosin% 7.1 LAB AAEOS <0.46 k/uL Abs 0.13 Eosin LAB ABASO % Baso% 0.9 LAB AABASO <0.11 k/uL Abs Baso 0.02 LAB OVAIMI Few Ovalocytes LAB PLTEST Platelet Estimate Platelet estimate decreased LAB DTYP DTYPE Manual Diff Performed By: #### CBCDIF #### [facility] [address] [place] [id number] PROGRESS Observed: 07/04/2017 Status: COMPLETED Source: [place] 9:57 AM [facility] REPOSITORY HNO ID: [id number] Author: Meghan (Kathleen) AMAURI Sher.KATHLEEN Service: (none) Author Type: Nurse Practitioner Type: Progress Notes Filed: 07/04/2017 3:17 PM Note Text: 07/04/2017 Patient presents with: Establish Care SUBJECTIVE: This is a 41 year old that is here today for physical. 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 She states that she is attending classes at [facility] 3 days a week, seeing a counselor monthly at [facility], and going to [facility] weekly. She has not attended any AA meetings yet, she verbalizes that she knows that it is important and needs to find the time. She states that the generalized aches have improved, but they are still there. She feels that the abdominal bloating is improving. Denies any abdominal pain. States that she feels that she is in a good place and feels different than in times past. She is experiencing some panic symptoms- increased HR, sweaty, overwhelmed- comes out of no where. She is worried that these symptoms will lead her to want to drink. She states that she calls her sister immediately when she experiences this and she had an old script for atarax that has been helpful. She is requesting a refill. She denies trouble sleeping- she will use trazodone or melatonin and it helps will falling asleep and staying asleep. She denies SI or HI. She states that she has eliminated many of the people that are triggers in her life, so she hopes that there will be improvement. GERD: controlled for the most part with prilosec. She states that since being home, she has noticed some increase in the reflux, but it is not bothersome at this point. No specific triggers. She denies eating spicy foods, caffeine, and peppermint. DIABETES MELLITUS: Since our last visit she denies excessive thirst or increased frequency of urination, chest pain or dyspnea , numbness, tingling or pain in extremities, new or unusual visual symptoms, low sugar/hypoglycemic reactions, weight loss/gain, lightheadedness/dizziness and bowel changes/loose stools. Follows a diabetic diet some of the time. She is compliant with medication(s) and is tolerating med(s) without any side effects. She reports checking her glucose on a once a day schedule with sugars in the fasting less than 200 range. Patient's last HgA1C was Hemoglobin A1C (%) Date Value 06/05/2017 6.4 ) Needs opthomology exam Foot exam today Nose Bleeds: She states that since she was in the hospital, she has had nose bleeds. They happen at different times of the day, feels it draining in throat at night. occasional clots, usually streaking when blowing nose. Occasionally feels like nose is running, but it is blood. Denies excessive amounts of blood loss. Denies breaking her nose when she fell initially prior to the hospitalization. LEARNING SOLUTIONS SPECIALIST: following with Dr. Mcgarry. She states that she has a scheduled appt for pap/hpv in August. She does have a history of abnormal pap in 2011 requiring a LEEP procedure. No abnormal since. She also has a history of genital herpes and she will take Valtrex as needed for an outbreak. PAST MEDICAL HISTORY Diagnosis Date - Alcoholism in remission (HCC) - Diabetes mellitus, type II (HCC) - Elevated LFTs - Gallstones - GERD (gastroesophageal reflux disease) - Hepatic steatosis - Hepatosplenomegaly - Hyperammonemia (HCC) - Insomnia - Thrombocytopenia (HCC) ALLERGIES Review of patient's allergies indicates no known allergies. MEDICATIONS Current Outpatient Prescriptions: metFORMIN (GLUCOPHAGE) 500 mg tablet Take 1 tablet by mouth twice daily with meals. traZODone (DESYREL) 50 mg tablet Take 1 tablet by mouth daily at bedtime. Omeprazole 40 mg capsule Take 40 mg by mouth once daily. ibuprofen (MOTRIN) 800 mg tablet Take 800 mg by mouth every 6 hours as needed. lactulose (DUPHALAC, CONSTULOSE) 10 gram/15 mL solution fluticasone (FLONASE) 50 mcg/actuation nasal spray naltrexone ER (VIVITROL) 380 mg injection Inject 380 mg intramuscularly one time only. thiamine (VITAMIN B-1) 100 mg tablet Take 1 tablet by mouth once daily. folic acid 1 mg tablet Take 1 tablet by mouth once daily. No current facility-administered medications for this visit. Medications and allergies reviewed by this provider. SOCIAL HISTORY Social History Marital status: Spouse name: Years of education: Number of children: Social History Main Topics Smoking status: Current Some Day Smoker Packs/day: 0.00 Years: 0.00 Types: Cigarettes Smokeless status: Never Used Alcohol use: No Drug use: No REVIEW OF SYSTEMS GENERAL: No weight loss, malaise or fevers HEENT: Negative for frequent or significant headaches, SEE HPI NECK: Negative for lumps, goiter, pain and significant neck swelling RESPIRATORY: Negative for cough, hemoptysis, wheezing, COPD, dyspnea or shortness of breath CARDIOVASCULAR: Negative for chest pain, leg swelling, hypertension, CHF or palpitations GI: No nausea, vomiting, or diarrhea and See HPI : No history of dysuria, frequency or incontinence LEARNING SOLUTIONS SPECIALIST: SEE HPI SKIN: Negative for lesions, rash, and itching PSYCH: See HPI HEMATOLOGY/LYMPHOLOGY: Negative for prolonged bleeding, bruising easily or swollen nodes ENDOCRINE: See HPI NEURO: No headaches, syncope, paralysis, seizures or tremors since hospitilization THE LAST 2 WEEKS, HAVE YOU BEEN BOTHERED BY ANY OF THE FOLLOWING? - Little interest or pleasure in doing things 1 SEVERAL DAYS Feeling down, depressed, or hopeless 1 Trouble falling or staying asleep, or sleeping too much 1 Feeling tired or having little energy 2 Poor appetite or overeating 1 Feeling bad yourself-you are a failure or have let yourself or others 0 Trouble concentrating, like reading the paper or watching TV 1 Moving/speaking slowly (others notice) OR being more fidgety/restless 1 Thoughts that you would be better off or of hurting yourself 0 PHQ TOTAL SCORE = 8 PHQ problems effect on difficulty of work, home, and social activity: 2 - SOMEWHAT DIFFICULT Feeling nervous, anxious, or on edge 1 Several days Not being able to stop or control worrying 1 Several days Worrying too much about different things 1 Several days Trouble relaxing 1 Several days Being so restless that it's hard to sit still 1 Several days Being easily annoyed or irritable 1 Several days Feeling afraid as if something awful might happen 0 Not at all sure YANET-7 Anxiety Score 6 If you checked off any problems, how difficult have these problems made it for you to do your work, take care of things at home, or get along with other people? Somewhat difficult OBJECTIVE: BP 118/72 (BP Site: Left Arm, BP Position: Sitting, BP Cuff Size: Regular Adult) Pulse 100 Resp 18 Wt 70.8 kg (156 lb). Vital signs reviewed by this provider. PHYSICAL EXAMINATION: General appearance: Well appearing, alert, in no acute distress, well-hydrated, well nourished. Skin: exposed skin color, texture, turgor normal, no suspicious rashes or lesions Head: Normocephalic, no masses, lesions, tenderness or abnormalities Eyes: Anicteric sclera. Pupils are equally round and reactive to light. Extraocular movements are intact. Nose/Sinuses: Nares normal, septum midline, mucosa normal, no drainage or sinus tenderness, Positive findings: trace amt of bright red blood in the right nare, no active bleeding noted, no trauma noted Oropharynx: Lips, mucosa, and tongue normal, oropharynx normal Neck: Supple, no adenopathy; thyroid symmetric, normal size, no bruits Lungs: Lungs clear to auscultation. No wheezing, rhonchi, rales Heart: RRR without murmur, gallop, or rubs. No ectopy Abdomen: Abdomen soft, non-tender. Bowel sounds normal. No masses, organomegaly, Positive findings: slightly distended Extremities: No deformities, edema, skin discoloration, clubbing or cyanosis. Good capillary refill. , Pulses: 2+ Neuro: Gait normal. Reflexes normal and symmetric. Sensation grossly intact. Feet: Shoes and socks removed, No deformities, ulcers, calluses, normal distal pulses, sensitive to 10 gm monofilament, vibratory perception normal and + calluses bilaterally Appearance: well dressed well groomed, cooperative and pleasant Behavior: good eye contact and relaxed Speech: fluent and coherent Mood: euthymic Affect: appropriate Perceptions: none Thought process: goal directed Thought Content: normal Intelligence level: normal Insight: good Judgment: good ASSESSMENT/PLAN: 1. Type 2 diabetes mellitus without complication, without long-term current use of insulin (HCC) - ICD9: 250.00, ICD10: E11.9 (primary diagnosis) Controlled. newly diagnosed - Continue current medications - Check HgA1C, fasting lipid panel, Urine for albumin/creatinine ratio, CMP and CBC in 3 months - Blood glucose monitoring on a once a day schedule - Ophthalmology referral for eval/management of diabetic eye changes - Encouraged regular aerobic exercise and weight loss - Follow up in 3 months, sooner should any other issues arise. - Discussed diabetic education issues of fci diabetic complications, diet, importance of exercise and importance of annual examinations with Opthalmology with patient. - CONSULT TO OPHTHALMOLOGY - ALBUMIN/CREAT RATIO RND UR - LIPID PANEL BASIC - HGB A1C - COMP METABOLIC PANEL 2. Bleeding nose - ICD9: 784.7, ICD10: R04.0 - may need cauterization. With history of amenia and thrombocytopenia, would like to check CBC today - CBC + DIFF - CONSULT TO ENT 3. Anxiety - ICD9: 300.00, ICD10: F41.9 - discussed nonpharmacologic methods to help with stress and anxiety - encouraged continuing to reach out to trusted loved ones - continue to work with addiction counselors - HYDROXYZINE PAMOATE 50 MG CAPSULE - SERTRALINE 25 MG TABLET - follow up in 1 month or sooner if symptoms worsen. Encouraged ER if SI or HI 4. Thrombocytopenia (HCC) - ICD9: 287.5, ICD10: D69.6 - CBC + DIFF today 5. Anemia, unspecified type - ICD9: 285.9, ICD10: D64.9 - CBC + DIFF- today 6. Elevated LFTs - ICD9: 790.6, ICD10: R79.89 - COMP METABOLIC PANEL- 3 months Meghan Sher APRN.CNP CNOV Observed: 07/04/2017 Status: COMPLETED Source: [place] 9:40 AM [facility] REPOSITORY Office Visit (FAMPWS) POLO ALVES ([id number]) 1975 F Date Time Provider Department 07/04/17 9:40 AM MEGHAN SHER (KATHLEEN) SANDRAWS During your visit today, we recorded the following information about you: Pulse Respiration Blood pressure Weight 100/minute 18/minute 118/72 70.8 kg Mgehan Sher APRN.CNP, APRN.CNP 07/04/2017 3:17 PM Signed 07/04/2017 Patient presents with: Establish Care SUBJECTIVE: This is a 41 year old that is here today for physical. 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 She states that she is attending classes at [facility] 3 days a week, seeing a counselor monthly at [facility], and going to [facility] weekly. She has not attended any AA meetings yet, she verbalizes that she knows that it is important and needs to find the time. She states that the generalized aches have improved, but they are still there. She feels that the abdominal bloating is improving. Denies any abdominal pain. States that she feels that she is in a good place and feels different than in times past. She is experiencing some panic symptoms- increased HR, sweaty, overwhelmed- comes out of no where. She is worried that these symptoms will lead her to want to drink. She states that she calls her sister immediately when she experiences this and she had an old script for atarax that has been helpful. She is requesting a refill. She denies trouble sleeping- she will use trazodone or melatonin and it helps will falling asleep and staying asleep. She denies SI or HI. She states that she has eliminated many of the people that are triggers in her life, so she hopes that there will be improvement. GERD: controlled for the most part with prilosec. She states that since being home, she has noticed some increase in the reflux, but it is not bothersome at this point. No specific triggers. She denies eating spicy foods, caffeine, and peppermint. DIABETES MELLITUS: Since our last visit she denies excessive thirst or increased frequency of urination, chest pain or dyspnea , numbness, tingling or pain in extremities, new or unusual visual symptoms, low sugar/hypoglycemic reactions, weight loss/gain, lightheadedness/dizziness and bowel changes/loose stools. Follows a diabetic diet some of the time. She is compliant with medication(s) and is tolerating med(s) without any side effects. She reports checking her glucose on a once a day schedule with sugars in the fasting less than 200 range. Patient's last HgA1C was Hemoglobin A1C (%) Date Value 06/05/2017 6.4 ) Needs opthomology exam Foot exam today Nose Bleeds: She states that since she was in the hospital, she has had nose bleeds. They happen at different times of the day, feels it draining in throat at night. occasional clots, usually streaking when blowing nose. Occasionally feels like nose is running, but it is blood. Denies excessive amounts of blood loss. Denies breaking her nose when she fell initially prior to the hospitalization. LEARNING SOLUTIONS SPECIALIST: following with Dr. Mcgarry. She states that she has a scheduled appt for pap/hpv in August. She does have a history of abnormal pap in 2011 requiring a LEEP procedure. No abnormal since. She also has a history of genital herpes and she will take Valtrex as needed for an outbreak. PAST MEDICAL HISTORY Diagnosis Date - Alcoholism in remission (HCC) - Diabetes mellitus, type II (HCC) - Elevated LFTs - Gallstones - GERD (gastroesophageal reflux disease) - Hepatic steatosis - Hepatosplenomegaly - Hyperammonemia (HCC) - Insomnia - Thrombocytopenia (HCC) ALLERGIES Review of patient's allergies indicates no known allergies. MEDICATIONS Current Outpatient Prescriptions: metFORMIN (GLUCOPHAGE) 500 mg tablet Take 1 tablet by mouth twice daily with meals. traZODone (DESYREL) 50 mg tablet Take 1 tablet by mouth daily at bedtime. Omeprazole 40 mg capsule Take 40 mg by mouth once daily. ibuprofen (MOTRIN) 800 mg tablet Take 800 mg by mouth every 6 hours as needed. lactulose (DUPHALAC, CONSTULOSE) 10 gram/15 mL solution fluticasone (FLONASE) 50 mcg/actuation nasal spray naltrexone ER (VIVITROL) 380 mg injection Inject 380 mg intramuscularly one time only. thiamine (VITAMIN B-1) 100 mg tablet Take 1 tablet by mouth once daily. folic acid 1 mg tablet Take 1 tablet by mouth once daily. No current facility-administered medications for this visit. Medications and allergies reviewed by this provider. SOCIAL HISTORY Social History Marital status: Spouse name: Years of education: Number of children: Social History Main Topics Smoking status: Current Some Day Smoker Packs/day: 0.00 Years: 0.00 Types: Cigarettes Smokeless status: Never Used Alcohol use: No Drug use: No REVIEW OF SYSTEMS GENERAL: No weight loss, malaise or fevers HEENT: Negative for frequent or significant headaches, SEE HPI NECK: Negative for lumps, goiter, pain and significant neck swelling RESPIRATORY: Negative for cough, hemoptysis, wheezing, COPD, dyspnea or shortness of breath CARDIOVASCULAR: Negative for chest pain, leg swelling, hypertension, CHF or palpitations GI: No nausea, vomiting, or diarrhea and See HPI : No history of dysuria, frequency or incontinence LEARNING SOLUTIONS SPECIALIST: SEE HPI SKIN: Negative for lesions, rash, and itching PSYCH: See HPI HEMATOLOGY/LYMPHOLOGY: Negative for prolonged bleeding, bruising easily or swollen nodes ENDOCRINE: See HPI NEURO: No headaches, syncope, paralysis, seizures or tremors since hospitilization THE LAST 2 WEEKS, HAVE YOU BEEN BOTHERED BY ANY OF THE FOLLOWING? - Little interest or pleasure in doing things 1 SEVERAL DAYS Feeling down, depressed, or hopeless 1 Trouble falling or staying asleep, or sleeping too much 1 Feeling tired or having little energy 2 Poor appetite or overeating 1 Feeling bad yourself-you are a failure or have let yourself or others 0 Trouble concentrating, like reading the paper or watching TV 1 Moving/speaking slowly (others notice) OR being more fidgety/restless 1 Thoughts that you would be better off or of hurting yourself 0 PHQ TOTAL SCORE = 8 PHQ problems effect on difficulty of work, home, and social activity: 2 - SOMEWHAT DIFFICULT Feeling nervous, anxious, or on edge 1 Several days Not being able to stop or control worrying 1 Several days Worrying too much about different things 1 Several days Trouble relaxing 1 Several days Being so restless that it's hard to sit still 1 Several days Being easily annoyed or irritable 1 Several days Feeling afraid as if something awful might happen 0 Not at all sure YANET-7 Anxiety Score 6 If you checked off any problems, how difficult have these problems made it for you to do your work, take care of things at home, or get along with other people? Somewhat difficult OBJECTIVE: BP 118/72 (BP Site: Left Arm, BP Position: Sitting, BP Cuff Size: Regular Adult) Pulse 100 Resp 18 Wt 70.8 kg (156 lb). Vital signs reviewed by this provider. PHYSICAL EXAMINATION: General appearance: Well appearing, alert, in no acute distress, well-hydrated, well nourished. Skin: exposed skin color, texture, turgor normal, no suspicious rashes or lesions Head: Normocephalic, no masses, lesions, tenderness or abnormalities Eyes: Anicteric sclera. Pupils are equally round and reactive to light. Extraocular movements are intact. Nose/Sinuses: Nares normal, septum midline, mucosa normal, no drainage or sinus tenderness, Positive findings: trace amt of bright red blood in the right nare, no active bleeding noted, no trauma noted Oropharynx: Lips, mucosa, and tongue normal, oropharynx normal Neck: Supple, no adenopathy; thyroid symmetric, normal size, no bruits Lungs: Lungs clear to auscultation. No wheezing, rhonchi, rales Heart: RRR without murmur, gallop, or rubs. No ectopy Abdomen: Abdomen soft, non-tender. Bowel sounds normal. No masses, organomegaly, Positive findings: slightly distended Extremities: No deformities, edema, skin discoloration, clubbing or cyanosis. Good capillary refill. , Pulses: 2+ Neuro: Gait normal. Reflexes normal and symmetric. Sensation grossly intact. Feet: Shoes and socks removed, No deformities, ulcers, calluses, normal distal pulses, sensitive to 10 gm monofilament, vibratory perception normal and + calluses bilaterally Appearance: well dressed well groomed, cooperative and pleasant Behavior: good eye contact and relaxed Speech: fluent and coherent Mood: euthymic Affect: appropriate Perceptions: none Thought process: goal directed Thought Content: normal Intelligence level: normal Insight: good Judgment: good ASSESSMENT/PLAN: 1. Type 2 diabetes mellitus without complication, without long-term current use of insulin (HCC) - ICD9: 250.00, ICD10: E11.9 (primary diagnosis) Controlled. newly diagnosed - Continue current medications - Check HgA1C, fasting lipid panel, Urine for albumin/creatinine ratio, CMP and CBC in 3 months - Blood glucose monitoring on a once a day schedule - Ophthalmology referral for eval/management of diabetic eye changes - Encouraged regular aerobic exercise and weight loss - Follow up in 3 months, sooner should any other issues arise. 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 - CONSULT TO OPHTHALMOLOGY - ALBUMIN/CREAT RATIO RND UR - LIPID PANEL BASIC - HGB A1C - COMP METABOLIC PANEL 2. Bleeding nose - ICD9: 784.7, ICD10: R04.0 - may need cauterization. With history of amenia and thrombocytopenia, would like to check CBC today - CBC + DIFF - CONSULT TO ENT 3. Anxiety - ICD9: 300.00, ICD10: F41.9 - discussed nonpharmacologic methods to help with stress and anxiety - encouraged continuing to reach out to trusted loved ones - continue to work with addiction counselors - HYDROXYZINE PAMOATE 50 MG CAPSULE - SERTRALINE 25 MG TABLET - follow up in 1 month or sooner if symptoms worsen. Encouraged ER if SI or HI 4. Thrombocytopenia (HCC) - ICD9: 287.5, ICD10: D69.6 - CBC + DIFF today 5. Anemia, unspecified type - ICD9: 285.9, ICD10: D64.9 - CBC + DIFF- today 6. Elevated LFTs - ICD9: 790.6, ICD10: R79.89 - COMP METABOLIC PANEL- 3 months Meghan Sher APRN.ACID PUMPER Referring Provider: RUBEN LORENZO) [[id number]] Allergies As of Date: 07/04/2017 (No Known Allergies) Date Reviewed: 07/04/2017 Reviewed by: Luz Marina Barker LPN - Fully Assessed Reason for Visit: Establish Care [42] Primary Visit Diagnosis:Routine physical examination [Z00.00] Other Visit Diagnoses:Type 2 diabetes mellitus without complication, without long-term current use of insulin (HCC) [E11.9] Bleeding nose [R04.0] Anxiety [F41.9] Thrombocytopenia (HCC) [D69.6] Anemia, unspecified type [D64.9] Elevated LFTs [R79.89] Order(s):CBC + DIFF [SQCBCDIF] Order #: [id number] FUTURE CONSULT TO ENT [9009] Order #: [id number]: 1 hydrOXYzine pamoate (VISTARIL) 50 mg capsuleTake 1 capsule by mouth three times daily as needed.Disp: 30 capsuleRfl: 0 sertraline (ZOLOFT) 25 mg tabletTake 1 tablet by mouth once daily.Disp: 30 tabletRfl: 1 CONSULT TO OPHTHALMOLOGY [2980] Order #: [id number]: 1 ALBUMIN/CREAT RATIO RND UR [SQUACR] Order #: [id number] FUTURE LIPID PANEL BASIC [SQLIPB] Order #: [id number] FUTURE HGB A1C [MRBOD0J] Order #: [id number] FUTURE COMP METABOLIC PANEL [SQCMP] Order #: [id number] FUTURE CBC + DIFF [SQCBCDIF] Order #: [id number] FUTURE Prescriptions as of 07/04/2017 Sig: HYDROXYZINE PAMOATE 50 MG CAP* Take 1 capsule by mouth three* SERTRALINE 25 MG TABLET Take 1 tablet by mouth once d* METFORMIN 500 MG TABLET Take 1 tablet by mouth twice * TRAZODONE 50 MG TABLET Take 1 tablet by mouth daily * OMEPRAZOLE 40 MG CAPSULE,MARIBEL* Take 40 mg by mouth once elma* IBUPROFEN 800 MG TABLET Take 800 mg by mouth every 6 * LACTULOSE 10 GRAM/15 ML ORAL * FLUTICASONE 50 MCG/ACTUATION * NALTREXONE ER 380 MG INTRAMUS* Inject 380 mg intramuscularly* THIAMINE HCL (VITAMIN B1) 100* Take 1 tablet by mouth once d* FOLIC ACID 1 MG TABLET Take 1 tablet by mouth once d* Problem List As Of Date 07/04/2017 Noted Resolved Hyperammonemia (HCC) [E72.20] Diabetes mellitus, type II (HCC) [E11.9] Prediabetes [R73.03] 06/08/2017 Prescriptions ordered this encounter Disp Refills Start End HYDROXYZINE PAMOATE 50 MG CAPSULE 30 c* 0 07/04/2017 Route: ORAL Sig: Take 1 capsule by mouth three times daily as needed. SERTRALINE 25 MG TABLET 30 t* 1 07/04/2017 Route: ORAL Sig: Take 1 tablet by mouth once daily. Disposition: Return in about 4 weeks (around 08/01/2017) for 1 month f/u anxiety 3 month f/u chronic conditions. Follow-up and Disposition History Recorded Questionnaire: PHQ-9 THE LAST 2 WEEKS, HAVE YOU BEEN BOTHERED BY ANY OF THE FOLLOWING? -> - Little interest or pleasure in doing things -> 1 SEVERAL DAYS Feeling down, depressed, or hopeless -> 1 Trouble falling or staying asleep, or sleeping too much - > 1 Feeling tired or having little energy -> 2 Poor appetite or overeating -> 1 Feeling bad yourself-you are a failure or have let yourself or others -> 0 Trouble concentrating, like reading the paper or watching TV -> 1 Moving/speaking slowly (others notice) OR being more fidgety/restless -> 1 Thoughts that you would be better off or of hurting yourself -> 0 PHQ TOTAL SCORE = -> 8 PHQ problems effect on difficulty of work, home, and social activity: -> 2 - SOMEWHAT DIFFICULT Questionnaire: YANET-7 ANXIETY SCALE Feeling nervous, anxious, or on edge -> 1 Several days Not being able to stop or control worrying -> 1 Several days Worrying too much about different things -> 1 Several days Trouble relaxing -> 1 Several days Being so restless that it's hard to sit still -> 1 Several days Being easily annoyed or irritable -> 1 Several days Feeling afraid as if something awful might happen -> 0 Not at all sure YANET-7 Anxiety Score -> 6 If you checked off any problems, how difficult have these problems made it for you to do your work, take care of things at home, or get along with other people? -> Somewhat difficult Encounter Status:Closed by MEGHAN SHER on 07/04/17 KAE SPLEEN -NB Observed: 06/12/2017 Status: F Source: [place] 10:24 AM [facility] REPOSITORY * * *Final Report* * * DATE OF EXAM: Jun 12 2017 10:24AM [facility] 1232 - KAE SPLEEN -NB / PROCEDURE REASON: Other specified abnormal findings of blood chemistry * * * * Physician Interpretation * * * * 2 studies: Ultrasound right upper quadrant/ultrasound spleen: HISTORY: Other specified abnormal findings of blood chemistry TECHNIQUE: Views obtained: Multiple sagittal and axial images.Images stored and permanent archive. Comparison: None RESULT: Findings: Liver: The liver echotexture is normal. No focal masses are seen in the liver.. Pancreas: The pancreas is not well seen due to overlying bowel gas. .. Gallbladder: There are multiple stones in the dependent portion of the gallbladder. Question some mild thickened gallbladder wall. Or pericholecystic edema is seen. Inferior vena cava: Grossly unremarkable Biliary tree: The common duct measures normal in size. No intrahepatic bile duct dilatation is seen., Kidney: RIGHT kidney measures 11.8 and the LEFT 13.4 cm in size Spleen measures 20 x 11.4 x 5.6 cm IMPRESSION: 1. There is splenomegaly. 2. Liver also appears prominent in size. 3. Cholelithiasis Tool Technician: TREASURE Transcribe Date/Time: Jun 12 2017 11:05A Dictated by : BRANDON MCLAIN DO This examination was interpreted and the report reviewed and electronically signed by: BRANDON MCLAIN DO on Jun 12 2017 12:23PM EST [id number] US ABD RIGHT UPPER Observed: 06/12/2017 Status: F Source: [facility] 10:24 AM [facility] REPOSITORY * * *Final Report* * * DATE OF EXAM: Jun 12 2017 10:24AM [facility] 1032 - US ABD RIGHT UPPER QUADRANT / PROCEDURE REASON: Other specified abnormal findings of blood chemistry * * * * Physician Interpretation * * * * 2 studies: Ultrasound right upper quadrant/ultrasound spleen: HISTORY: Other specified abnormal findings of blood chemistry TECHNIQUE: Views obtained: Multiple sagittal and axial images.Images stored and permanent archive. Comparison: None RESULT: Findings: Liver: The liver echotexture is normal. No focal masses are seen in the liver.. Pancreas: The pancreas is not well seen due to overlying bowel gas. .. Gallbladder: There are multiple stones in the dependent portion of the gallbladder. Question some mild thickened gallbladder wall. Or pericholecystic edema is seen. Inferior vena cava: Grossly unremarkable Biliary tree: The common duct measures normal in size. No intrahepatic bile duct dilatation is seen., Kidney: RIGHT kidney measures 11.8 and the LEFT 13.4 cm in size Spleen measures 20 x 11.4 x 5.6 cm IMPRESSION: 1. There is splenomegaly. 2. Liver also appears prominent in size. 3. Cholelithiasis Tool Technician: TREASURE Transcribe Date/Time: Jun 12 2017 11:05A Dictated by : BRANDON MCLAIN DO This examination was interpreted and the report reviewed and electronically signed by: BRANDON MCLAIN DO on Jun 12 2017 12:23PM EST [id number] HIV 12 COMBO (AG/AB) Collected: 06/12/2017 Status: F Source: [place] 10:20 AM [facility] REPOSITORY TYPE CODE TESTS RESULT OUT OF REFERENCE UNITS RANGE LAB HVAGAB Non Reactive HIV Non Reactive 12 Ag/Ab Result Comment: (NOTE) HIV Information: [place] Rev. Code 3701.243(E): This information has been disclosed to you from confidential records protected from disclosure by state law. You shall make no further disclosure of this information without the specific, written, and informed release of the individual to whom it pertains, or as otherwise permitted by state law. A general authorization for the release of medical or other information is not sufficient for the purpose of the release of HIV test results or diagnoses. Performed By: #### HIV12C, HREMOP #### [facility] [address] [address] HEPATITIS REMOTE PANEL Collected: 06/12/2017 Status: F Source: [place] 10:20 AM [facility] REPOSITORY TYPE CODE TESTS RESULT OUT OF RANGE REFERENCE UNITS LAB AHBCOT Negative Hep B Core Negative Ab,Total LAB AHCV Negative Hepatitis C Ab Negative IA LAB HBSAGR Negative HBsAg Negative LAB AHBSAG Negative Abnormal HepB Surface Positive Alert Ab,Qual Result Comment: These results are consistent with previous exposure and/or immunity to the hepatitis B virus antigen. Performed By: #### HIV12C, HREMOP #### [facility] [address] [address] PROGRESS Observed: 06/12/2017 Status: COMPLETED Source: [place] 9:38 AM [facility] REPOSITORY HNO ID: [id number] Author: Raquel Santos Service: (none) Author Type: (none) Type: Progress Notes Filed: 06/12/2017 10:25 AM Note Text: Radiology Service Progress Note PATIENT NAME: Polo Alves DATE OF SERVICE: June 12, 2017 TIME: 9:38 AM PATIENT IDENTITY VERIFICATION COMPLETED USING TWO (2) METHODS: Patient confirmed name verbally and Date of . PATIENT GENDER DATA: Female. status: : No status: NO. PATIENT RELEVANT IMPLANT DATA REVIEWED: Not Applicable RADIOLOGY DEPARTMENT: Ultrasound PERIPHERAL IV DATA: Not applicable SIGNED BY: Raquel Santos June 12, 2017 9:38 AM PROTIME Collected: 06/05/2017 Status: F Source: [place] 11:32 AM [facility] REPOSITORY TYPE CODE TESTS RESULT OUT OF RANGE REFERENCE UNITS LAB PSEC 9.7-13.0 sec PT Sec 12.4 LAB INR 0.9-1.3 PT INR 1.2 Result Comment: Vitamin K Antagonist (VKA) Therapeutic Range: INR 2 to 3 (Target INR of 2.5) Note: For patients treated with VKA drugs, such as warfarin, the [place] [employer] 2012 Guideline recommends a therapeutic INR range of 2 to 3 (target INR of 2.5). This recommendation includes high-risk patients with antiphospholipid syndrome with previous arterial or venous thromboembolism, current-generation mechanical or bioprosthetic aortic heart valve replacement. Note: Patients with mechanical aortic valve replacement and additional risk factors for thromboembolic events (atrial fibrillation, previous thromboembolism, LV dysfunction, hypercoagulable conditions) or an older generation mechanical AVR (i.e., ball in-Cage) or any mechanical MVR should have a INR therapeutic range of 2.5 to 3.5 (target INR of 3). Qian GH, et al. Chest 2012, 141:7S-47S Sariah RA et al. [facility] 2017, 70: 252-289 Performed By: #### PT, CBCDIF, ALCO, NH3, CMP, HBA1C #### [facility] [address] [place], [place] [address] CBC AND DIFFERENTIAL Collected: 06/05/2017 Status: F Source: [place] 11:32 AM [facility] REPOSITORY TYPE CODE TESTS RESULT OUT OF REFERENCE UNITS RANGE LAB WBC 3.70-11.00 k/uL WBC 4.29 LAB RBC 3.90-5.20 m/uL Low RBC 3.41 LAB HGB 11.5-15.5 g/dL Low Hemoglobin 10.6 LAB HCT 36.0-46.0 % Low Hematocrit 33.2 LAB MCV 80.0-100.0 fL MCV 97.4 LAB MCH 26.0-34.0 pG MCH 31.1 LAB MCHC 30.5-36.0 g/dL MCHC 31.9 LAB RDWCV 11.5-15.0 % RDW-CV 14.5 LAB PLTCT 150-400 k/uL Low Platelet Count 82 Result Comment: No clot detected. LAB MPV 9.0-12.7 fL MPV 10.7 LAB ANEUT % Neut% 61.5 LAB AANEUT 1.45-7.50 k/uL Abs Neut 2.63 LAB ALYMP % Lymph% 27.3 LAB AALYMP 1.00-4.00 k/uL Abs Lymph 1.17 LAB AMONO % [place]% 6.5 LAB AAMONO <0.87 k/uL Abs [place] 0.28 LAB AEOS % Eosin% 4.0 LAB AAEOS <0.46 k/uL Abs Eosin 0.17 LAB ABASO % Baso% 0.7 LAB AABASO <0.11 k/uL Abs Baso 0.03 LAB AUNRBC 0 /100 WBC NRBCs 0.0 LAB ABNRBC <0.01 k/uL Absolute nRBC <0.01 LAB DTYP DTYPE Auto Diff Performed By: #### PT, CBCDIF, ALCO, NH3, CMP, HBA1C #### [facility] [address] [address] ETHANOL Collected: 06/05/2017 Status: F Source: [place] 11:32 [facility] REPOSITORY TYPE CODE TESTS RESULT OUT OF REFERENCE UNITS RANGE LAB ALCO <11 mg/dL Ethanol <11 Performed By: #### PT, CBCDIF, ALCO, NH3, CMP, HBA1C #### [facility] [address] [place] [address] AMMONIA Collected: 06/05/2017 Status: F Source: [place] 11:32 [facility] REPOSITORY TYPE CODE TESTS RESULT OUT OF REFERENCE UNITS RANGE LAB NH3 11-38 umol/L Ammonia 26 Performed By: #### PT, CBCDIF, ALCO, NH3, CMP, HBA1C #### [place] [address] COMP METABOLIC PANEL Collected: 06/05/2017 Status: F Source: [place] 11:32 [facility] REPOSITORY TYPE CODE TESTS RESULT OUT OF REFERENCE UNITS RANGE LAB TP 6.3-8.0 g/dL Protein, Total 7.1 LAB ALB 3.9-4.9 g/dL Low Albumin 3.4 LAB CA 8.5-10.2 mg/dL Calcium, Total 9.4 LAB TBIL 0.2-1.3 mg/dL Bilirubin, High Total 2.2 LAB ALKP 32-117 U/L Alkaline Phosphatase 99 LAB AST 13-35 U/L AST High 86 LAB GLU 74-99 mg/dL Glucose High 157 Result Comment: The [place] [employer] (ADA) provides guidance for cutoff values for fasting glucose and random glucose. The ADA defines fasting as no caloric intake for at least 8 hours. Fas ting plasma glucose results between 100 to 125 mg/dL indicate increased risk for diabetes (prediabetes). Fasting plasma glucose results greater than or equal to 126 mg/dL meet the criteria for diagnosis of diabetes. In the absence of unequivocal hyperglycemia, results should be confirmed by repeat testing. In a patient with classic symptoms of hyperglycemia or hyperglycemic crisis, random plasma glucose results greater than or equal to 200 mg/dL meet the criteria for diagnosis of diabetes. Reference: Standards of Medical Care in Diabetes 2016, [place] [employer]. Diabetes Care. 2016.39(Suppl 1). LAB BUN 7-21 mg/dL BUN 12 LAB CRET 0.58-0.96 mg/dL Low Creatinine 0.50 LAB NA 136-144 mmol/L Sodium 144 LAB K 3.7-5.1 mmol/L Low Potassium 3.6 LAB CL 97-105 mmol/L Chloride High 108 LAB CO2 22-30 mmol/L Low CO2 17 LAB AGAP 9-18 mmol/L Anion Gap High 19 LAB ALT 7-38 U/L ALT High 42 LAB GFRAA eGFR- Amer. >60 LAB GFRNAA . eGFR-All Other Races >60 Result Comment: eGFR (Estimated GFR) Units of measure: mL/min/1.73 meters squared eGFR is derived from the reexpressed MDRD Study equation using the following parameters: serum creatinine, age, gender and race. The creatinine assay has been calibrated to be traceable to IDMS. An eGFR <60 mL/min/1.73m2 for >3 months is consistent with chronic kidney disease. Refer to KDOQI guidelines for clinical interpretation. In patients with unstable renal function, e.g. those with acute kidney injury, the eGFR may not accurately reflect actual GFR. Performed By: #### PT, CBCDIF, ALCO, NH3, CMP, HBA1C #### [facility] [address] [place], [place] [address] HEMOGLOBIN A1C Collected: 06/05/2017 Status: F Source: [place] 11:32 AM [facility] REPOSITORY TYPE CODE TESTS RESULT OUT OF REFERENCE UNITS RANGE LAB HGBA1C 4.3-5.6 % High Hemoglobin A1c 6.4 LAB HBA0 mg/dL Est. Average Glucose 137 Result Comment: eAG: (Estimated average glucose) is a calculated value from HgbA1c and is loss prevention representative of the average blood glucose level in the last 2-3 month period. Performed By: #### PT, CBCDIF, ALCO, NH3, CMP, HBA1C #### [facility] [address] [place], [place] [address] PROGRESS Observed: 06/05/2017 Status: COMPLETED Source: [place] 10:51 AM [facility] REPOSITORY HNO ID: [id number] Author: Ruben Man) Bj Service: (none) Author Type: Physician Type: Progress Notes Filed: 06/06/2017 11:46 AM Note Text: Chief Complaint Patient presents with: rehab center d/c for alcohol abuse HPI Polo Alves is a 41 year old female who presents here today for Above Complaints. Patient was discharged from [facility] in [place] on 06/01 after 30 days of rehab. Had been drinking since she was 16 years old. Patient states that she has been sober since 04/23. Has follow up with IOP at [facility] tomorrow, appointment with therapist at [facility] tomorrow at 4:15, and plans on starting AA meetings, possibly tonight. Patient does not have any alcohol in her house currently. does not drink alcohol regularly. Not hanging out with friends that drink regularly. Does not have plans to start drinking at this time. Patient had elevated ammonia level while inpatient at [facility] and was also found to be diabetic. Started on metformin and her glucose has been well controlled recently according to home readings. Has not been taking lactulose recently and is awaiting repeat ammonia level. Patient was also seen at [facility] [facility] April on the for fall with closed head injury with findings of pancytopenia, elevated LFTs, and hypokalemia. Had negative CT head for hemorrhage or stroke, but positive for frontal hematoma. Admitted for fall and acute alcohol withdrawal and was discharged on 05/01. After this incident was when she was admitted to [facility] [place]. Past medical history, appointments, medications, allergies reviewed. 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 Family History No family history on file. Patient Allergies ALLERGIES No Known Allergies Current Medications No current outpatient prescriptions on file prior to visit. No current facility-administered medications on file prior to visit. Social History Social History Marital status: Spouse name: Years of education: Number of children: Social History Main Topics Smoking status: Current Some Day Smoker Packs/day: 0.00 Years: 0.00 Types: Cigarettes Smokeless status: Never Used Alcohol use: No Drug use: No Review of Symptoms REVIEW OF SYSTEMS GENERAL: No weight loss, malaise or fevers NECK: Negative for lumps, goiter, pain and significant neck swelling RESPIRATORY: Negative for cough, hemoptysis, wheezing, COPD, dyspnea or shortness of breath CARDIOVASCULAR: Negative for chest pain, leg swelling, hypertension, CHF or palpitations GI: No nausea, vomiting, or diarrhea SKIN: Negative for lesions, rash, and itching EXAM: BP 118/74 Pulse 82 Resp 14 Wt 70.8 kg (156 lb) General Appearance: Well appearing, alert, in no acute distress, well-hydrated, well nourished.. Skin: Skin color, texture, turgor normal, no suspicious rashes or lesions. Lungs: Lungs clear to auscultation. No wheezing, rhonchi, rales. Heart: RRR without murmur, gallop, or rubs. No ectopy. Abdomen: Normal abdominal exam, Abdomen soft, non-tender. Bowel sounds normal. No masses, organomegaly. Extremities: No deformities, edema, skin discoloration, clubbing or cyanosis. Good capillary refill. . Health Maintenance List TETANUS due on 1988 PAP EVERY 5 YEARS due on 12/05/2007 HPV EVERY 5 YEARS due on 12/05/2007 INFLUENZA(1) due on 12/16/2016 ASSESSMENT/PLAN: 1. 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 Check ETOH level. Follow up with Sara De La Cruz and Koko Aguiar as recommended. Advised continued cessation. - THIAMINE HCL (VITAMIN B1) 100 MG TABLET - FOLIC ACID 1 MG TABLET - CBC + DIFF - COMP METABOLIC PANEL - ALCOHOL/ETHANOL BLD 2. Pancytopenia (HCC) - ICD9: 284.19, ICD10: D61.818 Will repeat blood work and call with results. 3. Hyperammonemia (HCC) - ICD9: 270.6, ICD10: E72.20 Will check level. If elevated will restart lactulose. - AMMONIA BLD 4. Type 2 diabetes mellitus without complication, without long-term current use of insulin (HCC) - ICD9: 250.00, ICD10: E11.9 The [place] new to [place]. - Continue current medications - Blood glucose monitoring on a once a day schedule - Follow up in 4 weeks, sooner should any other issues arise. - HGB A1C 5. Elevated LFTs - ICD9: 790.6, ICD10: R79.89 Will repeat LFTs and check levels of ammonia and INR to further evaluate liver function. - PROTHROMBIN TIME/PT Ruben Lorenzo MD ALLERGIES ALLERGIES DATE TYPE / CODE NAME / CODE REACTION SEVERITY SOURCE 02/13/2018 Drug No Known Unknown [facility] Allergy/416 Allergies/P14624 Hospital 642328(SNOM 0388(RXNORM) Repository ED CT) Drug NO KNOWN [facility] Class/47164 ALLERGIES [place] 1003(SNOMED Repository CT) ENCOUNTERS ENCOUNTERS ADMIT/DISCHARGE ACCOUNT ADMITTING ENCOUNTER LOCATION SOURCE NUMBER CLASS 05/03/2018/05/04/19 [id number] Ambulatory [address] [place] Repository 04/19/2018/04/20/19 [id number] Ambulatory [address] Repository 04/16/2018/04/16/20 [id number] Ambulatory [address] [place] Repository 04/16/2018/04/18/19 [id number] Ambulatory [address] [place] Repository 03/26/2018 [id number] Ambulatory [facility] Hospital ing:WOBL[facility] Repository 03/21/2018/03/21/20 [id number] Ambulatory [address] Repository 03/21/2018/03/22/20 [id number] Ambulatory [address] Repository 02/22/2018/02/24/20 [id number] Ambulatory [address] Repository 02/22/2018/02/24/20 [id number] Emergency UNIBuilding:E [place] [facility] Repository 02/13/2018/02/14/20 [id number] Emergency [place] [address] ing:ED Repository 02/07/2018/02/08/20 [id number] Ambulatory [facility] [place] Repository 02/07/2018/02/08/20 [id number] Ambulatory [facility] [place] Repository 01/17/2018/01/18/20 [id number] Ambulatory [facility] [place] Repository 01/10/2018/01/12/20 [id number] Ambulatory [facility] [place] Repository 01/02/2018/01/03/20 [id number] Ambulatory [facility] [place] Repository 01/02/2018/01/04/20 [id number] Ambulatory [facility] [place] Repository 12/19/2017/12/20/19 [id number] Ambulatory [facility] [place] Repository 12/19/2017/12/23/19 [id number] Ambulatory [facility] [place] Repository 11/23/2017/11/24/19 [id number] Ambulatory [facility] [place] Repository 11/17/2017/11/18/19 [id number] Ambulatory [facility] [place] Repository 11/17/2017/11/21/19 [id number] Ambulatory [facility] [place] Repository 11/17/2017/11/18/19 [id number] Ambulatory [facility] [place] Repository 11/14/2017/11/16/19 [id number] Ambulatory [facility] [place] Repository 10/09/2017/10/11/19 [id number] Ambulatory [facility] [place] Repository 09/21/2017/09/22/19 [id number] Ambulatory [facility] [place] Repository 09/15/2017 [id number] [facility] 07/04/2017/07/05/19 [id number] Ambulatory [facility] [place] Repository 07/04/2017/07/06/19 [id number] Ambulatory [facility] [place] Repository 06/12/2017/06/12/19 [id number] Ambulatory [facility] [place] Repository 06/12/2017/06/12/19 [id number] Ambulatory [facility] [place] Repository 06/05/2017/06/05/[id number] Repository 06/05/2017/06/07/[id number] Repository PAYERS PAYERS ENCOUNTER GUARANTOR PAYER SUBSCRIBER SOURCE 03/26/2018 POLO E Primary Insurance:MED TONIO [id number] MUTUAL TPAPolicy BALLENTINEDOB: Community [place] Number: [id number] [id number] Repository 25072Bzd: [phone]) Date:[phone] (HP) [place], [place] [address]GI: CHECK WEBSITE 03/26/2018 Secondary NOT GIVENUNK [place] Insurance:SELF PAY [facility] Number: Effective Repository Date:2018-03-26 02/22/2018 POLO Primary JUAN MONTANASHANDRAANTONI [facility] [id number] Insurance:[facility] [place] PPOPolicy Number: [id number]: 4 [id number] [phone] () Date: 02/13/2018 POLO E Primary Insurance:MED TONIO REYNOSO MUTUAL TPAPolicy BALLENTINEDOB: [facility]ly [facility] [place] Number: [id number], [place] [id number] Repository [address]Nas: [phone]) Date:[phone] (HP) [address], [place] [address]LE: CHECK WEBSITE 02/13/2018 Secondary NOT GIVENUNK [place] Insurance:SELF PAY [facility] Number: Effective Repository Date:2018-02-13 09/15/2017 Polo E Primary Insurance:MED Tonio [id number] MUTUAL TPAPolicy BallentineDOB: [facility]ly [facility] [place] Number: [id number], [place] [id number] Repository [address]Fti: [phone]) Date:[phone] (HP) [address]UQ[place], [place] [address]NE: CHECK WEBSITE 09/15/2017 Secondary NOT GIVENUNK [place] Insurance:SELF PAY [facility] Number: Effective Repository Date:2017-09-15
== END ==
PROVIDERS: Visit Provider Obstetrics & Gynecology
DX: Z79.3 Long term (current) use of hormonal contraceptives (principal)
CPT/HCPCS: 36415; 84144; 84703

== ENCOUNTER → 2018-12-21 13:12 | Outpatient (CLI) | payer OTHER, SELFPAY ==
[2018-12-28 14:04] LABS: HPV HC, High Risk Negative (Negative)
[2018-12-31 11:07] LABS: HPV Reflexed? YES, CHARGE PATIENT
== END ==
PROVIDERS: Visit Provider Obstetrics & Gynecology
DX: Z12.4 Encounter for screening for malignant neoplasm of cervix (principal)
CPT/HCPCS: 87624; 88175; G0145

== ENCOUNTER 2021-09-10 10:59 | Emergency (ER) | payer OTHER, SELFPAY ==
[2021-09-10 11:00] VITALS: BP 133/96; PULSE 91; RESP 17; TEMP 35.7; O2SAT 97; BMI 26.9
--- NOTE | 2021-09-10 11:34 | CT_ITS ---
STUDY: CT ABDOMEN AND PELVIS WITH CONTRAST REASON FOR EXAM: Female, 45 years old. abdominal pain RADIATION DOSAGE (If Supplied By Facility): CTDIvol = ( 14.43 ) mGy, DLP = ( 1028.96 ) mGycm TECHNIQUE: Transaxial images were obtained from the dome of the diaphragm to the symphysis pubis without oral contrast. IV 75mL Isovue-370 was administered. Sagittal and coronal images were reconstructed. Individualized dose optimization techniques were used for this CT. COMPARISON: None. FINDINGS: The visualized lung bases are unremarkable. The visualized portions of the heart are within normal limits. There is a diffuse contour abnormality of the liver consistent with cirrhotic changes. Densely calcified layering gallstones in the dependent portion of gallbladder. There is moderate splenomegaly. Normal pancreas. Normal bilateral adrenal glands. Normal right kidney. Normal left kidney. Normal visualized stomach. Normal small intestine. Normal colon. The appendix is visualized and appears normal. Normal abdominal aorta. Normal inferior vena cava. Normal retroperitoneum. Normal urinary bladder. Normal abdominal wall. Normal osseous structures. CT/Abdomen/Pelvis W IV Cont ONLY IMPRESSION: 1. No acute abnormality. 2. Cholelithiasis. 3. Cirrhosis. Electronically Signed: Nicola Moore MD at 13:22 EDT ,
--- NOTE | 2021-09-10 11:35 | EDS_ITS ---
HPI History of Present Illness Chief Complaint: Abd Pain Informant: patient Narrative Narrative: 45-year-old female presenting to the emergency room with abdominal and back pain associated with nausea and diarrhea. Patient states that symptoms began this morning around 0400. She notes the abdominal pain is sharp at times. She does note 1 small emesis. She denies fever. She denies urinary symptoms. She describes the pain is generalized across the abdomen and into the back. She notes that she has had pancreatitis in the past. [facility] Medical History (Updated 09/10/21 @ 13:[address] Jose Pepper DO) Alcohol withdrawal delivery delivered Pancreatitis Type 2 diabetes mellitus Home Medications clonazepam 0.5 mg PO DAILY 04/09/15 [History Last Taken Unknown] escitalopram oxalate 10 mg PO DAILY 04/09/15 [History Last Taken Unknown] promethazine 25 mg PO Q8H PRN PRN 04/09/15 [History Last Taken Unknown] ibuprofen 800 mg PO TID #20 tab 02/13/18 [Rx Last Taken Unknown] dicyclomine 20 mg PO TIDAC #20 capsule 09/10/21 [Rx Last Taken Unknown] duloxetine mg PO 09/10/21 [History Last Taken Unknown] metformin mg 09/10/21 [History Last Taken Unknown] ondansetron 4 mg PO Q6H PRN PRN #15 tab 09/10/21 [Rx Last Taken Unknown] Allergy/AdvReac Type Severity Reaction Status Date / Time No Known Allergies Allergy Verified 09/10/21 11:00 Social History (Updated 09/10/21 @ 11:[address] Jose Pepper DO) current gender identity: female Smoking Status: Never smoker ROS ROS ED Constitutional Constitutional ED: Denies chills, fever(s) or weight loss Eyes Eyes: Denies change in vision or diplopia ENT ENT ED: Denies ear pain, rhinorrhea or sore throat Cardiovascular Cardiovascular: Denies chest pain, orthopnea, palpitations or racing heartbeat Respiratory/Chest Respiratory/Chest: Denies cough, dyspnea or orthopnea Gastrointestinal Gastrointestinal: Reports abdominal pain, diarrhea, nausea and vomiting Genitourinary Genitourinary ED: Denies dysuria, hematuria or urinary frequency Musculoskeletal Musculoskeletal: Denies arthralgias or myalgias Integumentary Denies abscess or rash Neurologic Neurologic: Denies headache(s) or weakness Psychiatric Psychiatric: Denies anxiety, depression, suicidal ideation or suicidal thoughts Endocrine Endocrinology: Denies polydipsia, polyphagia or polyuria Allergic/Immunologic Allergic/Immunologic ED: Denies mouth swelling, tongue swelling or urticaria EXAM Physical Exam Const Vital Signs: 09/10/21 11:00 09/10/21 13:37 Temperature 96.3 F L Temperature Source Temporal Pulse Rate 91 73 Respiratory Rate 17 16 Blood Pressure 133/96 H Blood Pressure Mean 108 Pulse Ox 97 Oxygen Delivery Method Room Air Positive well nourished and well developed General Appearance ED: well developed HEENT Reports normocephalic, head/scalp atraumatic, TM's clear and moist mucous membranes Negative for trauma Tympanic Membrane ED: Yes TM's clear Eyes PERRL and EOMs intact bilaterally Neck no lymphadenopathy, supple and no JVD Resp normal respiratory effort and clear to auscultation bilaterally Cardio regular rate, regular rhythm and no murmurs GI normal to inspection, nondistended, normoactive bowel sounds and non-tender Palpation: soft Back/Spine no CVA tenderness and normal ROM Extremity normal to inspection General Extremety ED: Negative for edema General Extremity: Negative for edema Neuro oriented x3 and CN's II-XII intact bilaterally Sensorium / Orientation: alert Motor Exam: strength 5/5 throughout Psych mental status grossly normal Mood & Affect: Negative for depressed or tearful Skin no rashes or lesions noted and no wounds MDM MDM MDM Narrative Medical decision making narrative: Basic blood work showed a white count of 6.4. Blood sugar elevated at 327 and the patient notes that she has not taken any of her diabetes medicines today. Not . Lipase normal at 120. Liver enzymes otherwise normal. CT of the abdomen pelvis demonstrates cholelithiasis and cirrhosis but no colitis. Patient is doing better after fluids Toradol and Zofran. She will be discharged home with Bentyl and Zofran and instructions to return if worsening or concerns if she is still having new or persistent symptoms at 24 hours she needs a brief repeat exam then would need to come back to emergency Lab Data Attestation: I reviewed the patient's lab results. Labs: Laboratory Results - last 24 hr 09/10/21 09/10/21 09/10/21 11:20 11:20 11:20 WBC 6.4 RBC 4.98 Hgb 13.9 Hct 42.1 MCV 84.5 MCH 27.9 MCHC 33.0 RDW Std Deviation 37.6 RDW Coeff of Cedric 12.5 Plt Count 132 L MPV 10.2 Immature Gran % (Auto) 0.800 Neut % (Auto) 81.3 H Lymph % (Auto) 11.4 L Brooke % (Auto) 4.0 Eos % (Auto) 2.2 Baso % (Auto) 0.3 Absolute Neuts (auto) 5.2 Absolute Lymphs (auto) 0.73 L Nucleated RBC % 0 Sodium 139 Potassium 3.4 L Chloride 104 Carbon Dioxide 29.0 Anion Gap 6 BUN 11 Creatinine 0.74 Estim Creat Clear Calc 95.33 Est GFR (MDRD) Af Amer 110 Est GFR (MDRD) Non-Af 91 BUN/Creatinine Ratio 14.8 Glucose 327 H Calcium 9.2 Total Bilirubin 0.70 AST 18 ALT 27 Alkaline Phosphatase 105 Total Protein 7.9 Albumin 3.8 Globulin 4.1 Albumin/Globulin Ratio 0.9 Lipase 120 Serum , Qual NEGATIVE Urine Color Urine Clarity Urine pH Ur Specific Patterson Urine Protein Urine Glucose (UA) Urine Ketones Urine Occult Blood Urine Nitrite Urine Bilirubin Urine Urobilinogen Ur Leukocyte Esterase Urine RBC Urine WBC Ur Squamous Epith Cells Urine Bacteria Urine Mucus 09/10/21 12:30 WBC RBC Hgb Hct MCV MCH MCHC RDW Std Deviation RDW Coeff of Cedric Plt Count MPV Immature Gran % (Auto) Neut % (Auto) Lymph % (Auto) Brooke % (Auto) Eos % (Auto) Baso % (Auto) Absolute Neuts (auto) Absolute Lymphs (auto) Nucleated RBC % Sodium Potassium Chloride Carbon Dioxide Anion Gap BUN Creatinine Estim Creat Clear Calc Est GFR (MDRD) Af Amer Est GFR (MDRD) Non-Af BUN/Creatinine Ratio Glucose Calcium Total Bilirubin AST ALT Alkaline Phosphatase Total Protein Albumin Globulin Albumin/Globulin Ratio Lipase Serum , Qual Urine Color Yellow Urine Clarity Sl. Cloudy Urine pH 5.0 Ur Specific Patterson 1.025 Urine Protein 30 H Urine Glucose (UA) 1000 H Urine Ketones 5 H Urine Occult Blood 10 H Urine Nitrite Negative Urine Bilirubin 1 H Urine Urobilinogen 1 H Ur Leukocyte Esterase 100 H Urine RBC 0 SEEN Urine WBC 0-5 SEEN Ur Squamous Epith Cells 0-5 SEEN Urine Bacteria 0 SEEN Urine Mucus 0 SEEN Radiography Diagnostic Testing: Clinical Impression(s) from Imaging Studies Abdomen/Pelvis CT 09/10/21 11:34 IMPRESSION: 1. No acute abnormality. 2. Cholelithiasis. 3. Cirrhosis. Electronically Signed: Nicola Moore MD at 13:22 EDT , Discharge Plan Triage Chief Complaint: Abd Pain ED Provider: Jose Pepper Dx/Rx/DC Orders Clinical Impression: Abdominal pain, Nausea, Diarrhea Instructions: Abdominal Pain Prescriptions: New ondansetron [ondansetron] 4 MG tablet 4 mg PO Q6H PRN PRN (Reason: Nausea) Qty: 15 RF: 0 dicyclomine 10 MG capsule 20 mg PO TIDAC Qty: 20 RF: 0 No Action clonazepam 0.5 MG tablet 0.5 mg PO DAILY RF: 0 promethazine 25 MG tablet 25 mg PO Q8H PRN PRN (Reason: Nausea) RF: 0 escitalopram oxalate 10 MG tablet 10 mg PO DAILY RF: 0 ibuprofen 800 MG tablet 800 mg PO TID Qty: 20 RF: 0 metformin 500 mg tablet RF: 0 duloxetine 60 mg capsule,delayed release(DR/EC) PO RF: 0 Primary Care Provider: Julisa Soria NP Referrals: Julisa Soria NP, [facility] [Primary Care Provider] - As Needed Disposition Disposition: Home, Self Care
[2021-09-10] MEDS: Ketorolac 30 MG/ML Syringe IV (11:54)
[2021-09-10] MEDS: Ondansetron 4 MG/2 ML Vial IV (11:54)
[2021-09-10] MEDS: 0.9% Normal Saline 1,000 ML 1000 ML IV (11:54)
[2021-09-10 12:23] LABS: ALB/GLOB Ratio 0.9 RATIO (0.9-2.4); AST(SGOT) 18 U/L (15-37); Alanine Aminotransfer ALT/SGPT 27 U/L (13-56); Albumin, Serum 3.8 g/dL (3.2-5.0); Alkaline Phosphatase 105 U/L (45-117); Anion Gap 6 (5-15); BUN 11 mg/dL (7-18); BUN/Creat Ratio 14.8 RATIO (10-20); Calcium,Total 9.2 mg/dL (8.5-10.1); Chloride 104 mmol/L (98-107); Creatinine, Serum 0.74 mg/dL (0.55-1.02); EST Glomerular Filtration Rate 91 mL/min (>60); Est Glom Filt Rate - Afr Amer 110 mL/min (>60); Estimated Creatinine Clearance 95.33 ml/min; Globulin 4.1 g/dL (2.2-4.2); Glucose 327 mg/dL (74-106); Lipase 120 U/L (73-393); Potassium 3.4 mmol/L (3.5-5.1); Protein, Total 7.9 g/dL (6.4-8.2); Sodium Level 139 mmol/L (136-145)
[2021-09-10 12:26] LABS: Absolute Lymphocyte Count 0.73 X10^3/uL (0.83-4.51); Absolute Neutrophil Count 5.2 X10^3/uL (2.0-7.7); Basophil# 0.02 X10^3/uL; Basophil% 0.3 % (0-1); Eosinophil# 0.14 X10^3/uL; Eosinophils% 2.2 % (0-5); Hematocrit 42.1 % (37-47); Hemoglobin 13.9 g/dL (12.0-15.0); Lymphocyte # 0.73 X10^3/ul (0.83-4.51); Lymphocyte % 11.4 % (19-41); Mean Corpuscular Hgb 27.9 pg (27.0-32.0); Mean Corpuscular Volume 84.5 fL (81-99); Mean Platelet Vol. 10.2 fl (6.2-12.0); Monocyte# 0.26 X10^3/uL; NRBC Flagged by Analyzer 0 % (0-5); Neutrophil # 5.22 X10^3/uL (2.7-7.7); Neutrophil % 81.3 % (47-70); Platelet Count 132 K/mm3 (150-450); RBC Distribution Width CV 12.5 % (11.6-14.6); RBC Distribution Width SD 37.6 fl (35.1-43.9); Red Blood Count 4.98 M/mm3 (4.2-5.4); White Blood Count 6.4 K/mm3 (4.4-11.0)
[2021-09-10 12:29] LABS: Internal QC Validated? YES +Cl - CLEAR BKGD
[2021-09-10 12:30] LABS: Pregnancy, Serum, hCG Quali. NEGATIVE Negative
[2021-09-10 12:47] LABS: Bacteria 0 SEEN /hpf (None Seen); Mucous, Urine 0 SEEN /hpf (<or=2+); Red Blood Cells-Urine 0 SEEN /hpf (0-5)
[2021-09-10 13:03] LABS: Color, Urine Yellow (Yellow); Glucose, Dipstick 1000 mg/dl (Normal); Ketone-Dipstick 5 mg/dl (Negative); Leukocyte Esterase-Dipstick 100 /ul (Negative); Nitrite-Dipstick Negative (Negative); Occult Blood-Urine 10 /ul (Negative); Protein-Dipstick 30 mg/dl (Negative); Specific Gravity, Urine 1.025 (1.002-1.030); Urine Clarity Sl. Cloudy (Clear); Urine Urobilinogen 1 mg/dl (Normal)
[2021-09-10 13:05] LABS: Urine Bilirubin Dipstick 1 mg/dL (Negative)
[2021-09-10 13:13] LABS: Squamous Epithelial Cells - UA 0-5 SEEN /hpf (5-10); White Blood Cells 0-5 SEEN /hpf (0-5)
[2021-09-10 13:37] VITALS: PULSE 73; RESP 16
== END 2021-09-10 13:55 | disposition home or self-care (01) ==
PROVIDERS: Emergency Provider Emergency Medicine; PCP Nurse Practitioner Family; Visit Provider Emergency Medicine
DX: R19.7 Diarrhea, unspecified (principal); K74.60 Unspecified cirrhosis of liver; E11.65 Type 2 diabetes mellitus with hyperglycemia; K80.20 Calculus of gallbladder without cholecystitis without obstruction; R11.0 Nausea; M54.9 Dorsalgia, unspecified; R10.9 Unspecified abdominal pain
CPT/HCPCS: 74177; 80053; 81001; 83690; 84703; 85025; 96361; 96374; 96375; 99282; J7030; Q9967; A4216; J2405

== ENCOUNTER 2024-06-11 18:37 | Emergency (ER) | payer OTHER, SELFPAY ==
[2024-06-11 18:39] VITALS: BP 131/82; PULSE 84; RESP 16; TEMP 36.3; O2SAT 100
[2024-06-11 20:03] LABS: Absolute Lymphocyte Count 0.13 X10^3/uL (0.83-4.51); Absolute Neutrophil Count 4.7 X10^3/uL (2.0-7.7); Basophil# 0.01 X10^3/uL; Basophil% 0.2 % (0-1); Eosinophil# 0.03 X10^3/uL; Eosinophils% 0.6 % (0-5); Hematocrit 44.8 % (37-47); Hemoglobin 14.7 g/dL (12.0-15.0); Lymphocyte # 0.13 X10^3/ul (0.83-4.51); Lymphocyte % 2.6 % (19-41); Mean Corp Hgb Conc 32.8 g/dL (32-36); Mean Corpuscular Hgb 28.7 pg (27.0-32.0); Mean Corpuscular Volume 87.3 fL (81-99); Mean Platelet Vol. 10.4 fl (6.2-12.0); Monocyte# 0.08 X10^3/uL; Monocyte% 1.6 % (0-10); NRBC Flagged by Analyzer 0 % (0-5); Neutrophil # 4.74 X10^3/uL (2.7-7.7); Neutrophil % 94.6 % (47-70); POSITIVE DIFFERENTIAL YES; Platelet Count 116 K/mm3 (150-450); RBC Distribution Width CV 12.8 % (11.6-14.6); RBC Distribution Width SD 41.1 fl (35.1-43.9); Red Blood Count 5.13 M/mm3 (4.2-5.4)
[2024-06-11 20:27] LABS: Internal QC Validated? YES +Cl - CLEAR BKGD; Pregnancy, Serum, hCG Quali. NEGATIVE Negative
[2024-06-11 20:36] LABS: Anion Gap 19 (5-15); BUN 19 mg/dL (4-19); BUN/Creat Ratio 29.7 RATIO (10-20); Calcium 9.6 mg/dL (7.6-11.0); Carbon Dioxide 18.6 mmol/L (22.0-29.0); Chloride 102 mmol/L (96-108); Creatinine, Serum 0.6 mg/dL (0.6-1.0); EST Glomerular Filtration Rate 111 (>60); Glucose 138 mg/dL (70-99); Potassium 3.8 mmol/L (3.3-5.1); Sodium Level 140 mmol/L (133-145)
[2024-06-11 22:10] LABS: Bacteria 0 SEEN /hpf (None Seen); Mucous, Urine 0 SEEN /hpf (<or=2+)
[2024-06-11 22:12] LABS: Color, Urine Yellow (Yellow); Glucose, Dipstick Normal (Normal); Leukocyte Esterase-Dipstick Negative /ul (Negative); Nitrite-Dipstick Negative (Negative); Occult Blood-Urine Negative /ul (Negative); Protein-Dipstick 30 mg/dl (Negative); Specific Gravity, Urine 1.025 (1.002-1.030); Urine Bilirubin Dipstick Negative (Negative); Urine Clarity Clear (Clear); Urine Urobilinogen Normal (Normal)
[2024-06-11 22:34] LABS: Ketone-Dipstick 150 mg/dl (Negative)
[2024-06-11 22:45] LABS: Red Blood Cells-Urine 0 SEEN /hpf (0-5); Squamous Epithelial Cells - UA 0-5 SEEN /hpf (5-10); White Blood Cells 0-5 SEEN /hpf (0-5)
--- NOTE | 2024-06-11 23:08 | EDS_ITS ---
HPI HPI - GI History of Present Illness Chief Complaint: Nausea/Vomiting/Diarrhea Informant: patient Abdominal Pain/Flank Pain Onset: Today Context: Gradual Onset Timing: Continuous Quality: Aching Location: Diffuse Worsened by: Nothing Relieved by: Nothing Nausea/Vomiting/Emesis GI Symptom: Positive for Nausea and Vomiting Onset: Today Quality: Positive for Nonbilious; Negative for Blood streaks, Coffee ground or Hematemesis Diarrhea/Melena/Hematochezia GI Symptom: Positive for Diarrhea; Negative for Melena or Hematochezia Associated Symptoms Associated Symptoms: Negative for Dysuria, Frequency or Hematuria LMP: Currently Narrative Narrative: Patient presents with nausea, vomiting, diarrhea, and abdominal pain that began this morning. Patient states that has been constant throughout the day today. Patient states her pain is diffuse. Patient describes it as an aching. Patient denies any hematemesis or coffee-ground emesis. Patient denies any melena or hematochezia. Patient states she was at the end of her menstrual period currently. Patient denies any urinary complaints. Patient does admit to some pain in her back. Patient admits to subjective fevers and chills but states her temperature has been normal. [facility] Medical History Type 2 diabetes mellitus delivery delivered Pancreatitis Alcohol withdrawal Home Medications ?Medication ?Instructions ?Recorded ?Last Taken ?Type clonazepam 0.5 mg tablet 0.5 mg PO DAILY depression 1 06/10/14 Unknown History escitalopram oxalate 10 mg tablet 10 mg PO DAILY dep 1 06/10/14 Unknown History promethazine 25 mg tablet 25 mg PO Q8H PRN PRN Nausea 04/09/15 Unknown History ibuprofen 800 mg tablet 800 mg PO TID #20 tabs 02/13 Unknown Rx dicyclomine 10 mg capsule 20 mg (2 x 10 mg) PO TIDAC # 20 09/10/21 Unknown Rx CAPSULES duloxetine 60 mg capsule,delayed mg PO 09/10/21 Unknow n History release metformin 500 mg tablet mg 09/10/21 Unknown History ondansetron 4 mg disintegrating 4 mg PO Q6H PRN PRN Na usea #10 tabs 06/12/24 Unknown Rx tablet Allergy/AdvReac Type Severity Reaction Status Date / Time glipizide Allergy Mild Other Verified 06/11/24 18:38 Social History Smoking Status: Never smoker ROS ROS ED Constitutional Constitutional ED: Reports chills, fever(s) and subjective Eyes Eyes: Denies blurry vision or change in vision ENT ENT ED: Denies rhinorrhea or sore throat Cardiovascular Cardiovascular: Denies chest pain or palpitations Respiratory/Chest Respiratory/Chest: Denies cough or dyspnea Gastrointestinal Gastrointestinal: Reports abdominal pain, diarrhea, nausea and vomiting; Denies melena Genitourinary Genitourinary ED: Denies dysuria or hematuria Musculoskeletal Musculoskeletal: Reports back pain; Denies neck pain Integumentary Denies abscess or rash Neurologic Neurologic: Reports headache(s); Denies weakness Allergic/Immunologic Allergic/Immunologic ED: Denies mouth swelling or urticaria EXAM Physical Exam Const Vital Signs: 06/11/24 18:39 06/11/24 23:39 Temperature 97.4 F L Temperature Source Oral Pulse Rate 84 70 Respiratory Rate 16 18 Blood Pressure 131/82 H 134/93 H Blood Pressure Mean 98 106 Pulse Ox 100 98 Oxygen Delivery Method Room Air Room Air Positive well nourished and well developed General Appearance ED: well developed and NAD HEENT Reports moist mucous membranes normocephalic and atraumatic Neck supple and no JVD Resp normal respiratory effort and clear to auscultation bilaterally Cardio regular rate and regular rhythm GI non-distended Palpation: soft and tender epigastric, LLQ, RLQ, LUQ, RUQ, periumbilical and suprapubic; Negative for guarding or rebound tenderness present Neuro CN's II-XII intact bilaterally, moves all extremities and no sensory deficits no betsey Sensorium / Orientation: alert Motor Exam: strength 5/5 throughout Psych mental status grossly normal Skin no wounds MDM MDM MDM Narrative Medical decision making narrative: Differential diagnosis includes gastroenteritis, pancreatitis, electrolyte abnormality, diabetic ketoacidosis, bowel obstruction, dehydration, and urinary tract infection. CBC will be obtained to assess for leukocytosis and anemia. Basic metabolic profile will be obtained to assess for electrolyte abnormality and renal function. Hepatic profile will be obtained to assess for hepatic function. Serum acetone level will be obtained to assess for diabetic ketoacidosis. Serum lactate will be obtained to assess for lactic acidosis. Serum hCG will be obtained to assess for . Urinalysis will be obtained to assess for urinary tract infection and hematuria. CT scan of the abdomen and pelvis will be obtained to assess for bowel obstruction and perforation. Lab Data Attestation: I reviewed the patient's lab results. Lab results narrative: CBC was reviewed and showed a mild thrombocytopenia of 116. The remainder is within normal limits. Basic metabolic profile was reviewed. Glucose was mildly elevated at 138. Anion gap is slightly elevated at 19. The remainder is within normal limits. Serum hCG was reviewed and was negative. Urinalysis was reviewed. Urine ketones were 150. There is no evidence of urinary tract infection or hematuria. Serum acetone level was reviewed and was negative. Serum lactate was reviewed and was normal at 1.3. Labs: Laboratory Results - last 24 hr 06/11/24 06/11/24 06/11/24 19:43 22:05 23:27 WBC 5.0 RBC 5.13 Hgb 14.7 Hct 44.8 MCV 87.3 MCH 28.7 MCHC 32.8 RDW Std Deviation 41.1 RDW Coeff of Cedric 12.8 Plt Count 116 L MPV 10.4 Immature Gran % (Auto) 0.400 Neut % (Auto) 94.6 H Lymph % (Auto) 2.6 L [place] % (Auto) 1.6 Eos % (Auto) 0.6 Baso % (Auto) 0.2 Absolute Neuts (auto) 4.7 Absolute Lymphs (auto) 0.13 L Nucleated RBC % 0 Sodium 140 Potassium 3.8 Anion Gap 19 H BUN 19 Creatinine 0.6 Est GFR (MDRD) Non-Af 111 BUN/Creatinine Ratio 29.7 H Glucose 138 H Lactic Acid 1.3 Calcium 9.6 Total Bilirubin 0.89 Direct Bilirubin 0.38 H AST 31 ALT 21 Alkaline Phosphatase 93 Total Protein 8.1 Albumin 4.7 Globulin 3.4 Lipase 26 Serum , Qual NEGATIVE Urine Color Yellow Urine Clarity Clear Urine pH 6.0 Ur Specific [place] 1.025 Urine Protein 30 H Urine Glucose (UA) Normal Urine Ketones 150 A* Urine Occult Blood Negative Urine Nitrite Negative Urine Bilirubin Negative Urine Urobilinogen Normal Ur Leukocyte Esterase Negative Urine RBC 0 SEEN Urine WBC 0-5 SEEN Ur Squamous Epith Cells 0-5 SEEN Urine Bacteria 0 SEEN Urine Mucus 0 SEEN Acetone Level NEGATIVE Radiography Diagnostic Testing: Clinical Impression(s) from Imaging Studies Abdomen/Pelvis CT 06/12/24 23:15 IMPRESSION: No evidence of acute process. Cirrhosis and splenomegaly. Interval cholecystectomy. One or more dose reduction techniques were used (e.g., Automated exposure control, adjustment of the mA and/or kV according to patient size, use of iterative reconstruction technique). Reading Location: [id number] CT scan of the abdomen and pelvis was obtained. There is no acute process noted. There is cirrhosis and splenomegaly. There is no free air. There is no evidence of obstruction. This was interpreted by the radiologist and was also independently reviewed by myself. Treatment and Re-Evaluation :: Patient was given IV fluids and Zofran. Patient was given a repeat dose of Zofran. Patient was advised of her findings. Patient was given a prescription for Zofran. Patient was instructed to start with a liquid diet and advance as tolerated. Patient was instructed to return if worse in any way. Patient understood and was agreeable with plan. All questions were answered. Discharge Plan Triage Chief Complaint: Nausea/Vomiting/Diarrhea ED Provider: Waldo Santos Dx/Rx/DC Orders Clinical Impression: Nausea vomiting and diarrhea, Type 2 diabetes mellitus Instructions: ED Vomiting (Adult) Prescriptions: Continued ondansetron 4 MG tablet 4 mg PO Q6H PRN PRN (Reason: Nausea) Qty: 10 0RF No Action clonazepam 0.5 MG tablet 0.5 mg PO DAILY promethazine 25 MG tablet 25 mg PO Q8H PRN PRN (Reason: Nausea) escitalopram oxalate 10 MG tablet 10 mg PO DAILY ibuprofen 800 MG tablet 800 mg PO TID Qty: 20 0RF metformin 500 mg tablet Patient Comments: take 2 tablets by mouth every morning WITH BREAKFAST AND 2 TABLETS IN THE EVENING WITH DINNER duloxetine 60 mg capsule,delayed release(DR/EC) PO Patient Comments: take 1 capsule by mouth once daily dicyclomine 10 MG capsule 20 mg PO TIDAC Qty: 20 0RF Primary Care Provider: Julisa Soria NP Referrals: Julisa Soria NP, [facility] [Primary Care Provider] - 5-7 Days Print Language: Irish Disposition Disposition: Home, Self Care
[2024-06-11] MEDS: 0.9% Normal Saline (1000mL) 1,000 ML 1000 ML IV (23:35)
[2024-06-11] MEDS: Ondansetron 4 MG/2 ML Vial IV (23:36)
[2024-06-11 23:39] VITALS: BP 134/93; PULSE 70; RESP 18; O2SAT 98
[2024-06-11] MEDS: Morphine 4 MG/ML Syringe IV (23:58)
[2024-06-12 00:08] LABS: AST(SGOT) 31 U/L (<=31); Alanine Aminotransfer ALT/SGPT 21 U/L (<=34); Albumin, Serum 4.7 g/dL (3.5-5.0); Alkaline Phosphatase 93 U/L (35-104); Bilirubin, Direct 0.38 mg/dL (0.00-0.30); Globulin 3.4 g/dL (2.2-4.2); Lipase 26 U/L (13-75); Protein, Total 8.1 g/dL (5.9-8.4); Total Bilirubin 0.89 mg/dL (0.00-1.30)
[2024-06-12 00:30] LABS: Lactic Acid 1.3 mmol/L (0.0-2.0)
[2024-06-12] MEDS: Ondansetron 4 MG/2 ML Vial IV (01:28)
[2024-06-12 01:33] VITALS: BP 121/87; PULSE 78; RESP 17; TEMP 36.6; O2SAT 99
--- NOTE | 2024-06-12 23:15 | CT_ITS ---
PROCEDURE: ABDOMEN/PELVIS W IV CONT ONLY REASON FOR EXAM: Abdominal pain, nausea vomiting diarrhea times today, diffuse pain TECHNIQUE: Abdomen and pelvis CT with intravenous contrast. Coronal and sagittal reformatted images IV CONTRAST: 96 cc Isovue 370 COMPARISON: 09/10/2021 FINDINGS: Lung bases: Clear Liver: Heterogeneous cirrhotic liver again noted. Prominent portal and splenic veins fill with contrast as expected. Gallbladder: Interval cholecystectomy Spleen: Splenomegaly 16.5 cm again noted Pancreas: Unremarkable. Adrenals: Unremarkable. Kidneys: Unremarkable. Bladder: Unremarkable. Reproductive Organs: Unremarkable. Bowel: Unremarkable. Appendix: Normal caliber appendix without secondary signs. Lymph nodes: No suspicious lymph node enlargement. Vasculature: Major vascular structures are unremarkable. Peritoneum / Retroperitoneum: No free fluid. No free air. Bones: Unremarkable. CT/Abdomen/Pelvis W IV Cont ONLY IMPRESSION: No evidence of acute process. Cirrhosis and splenomegaly. Interval cholecystectomy. One or more dose reduction techniques were used (e.g., Automated exposure contr ol, adjustment of the mA and/or kV according to patient size, use of iterative reconstruction technique). Reading Location: [id number]
== END 2024-06-12 01:34 | disposition home or self-care (01) ==
PROVIDERS: Emergency Provider Emergency Medicine; PCP Nurse Practitioner Family; Visit Provider Emergency Medicine
DX: R11.2 Nausea with vomiting, unspecified (principal); E11.9 Type 2 diabetes mellitus without complications; R10.9 Unspecified abdominal pain; R19.7 Diarrhea, unspecified; Z90.49 Acquired absence of other specified parts of digestive tract; M54.9 Dorsalgia, unspecified; R51.9 Headache, unspecified
CPT/HCPCS: 74177; 80048; 80076; 81001; 82009; 83605; 83690; 84703; 85025; 96361; 96374; 96375; 96376; 99283; Q9967; A4216; J2405